=== PATIENT | male | born 1960 | race African-American/Black ===

== ENCOUNTER 2017-08-22 14:35 | Inpatient (IN) | payer OTHER ==
[2017-08-22 17:44] VITALS: BMI 28.7
--- NOTE | 2017-08-22 18:33 | HP ---
Admission ROS [facility] - [facility] Chief Complaint: I WANT TO GO TO REHAB Allergies/Adverse Reactions: Allergies Allergy/AdvReac Type Severity Reaction Status Date / Time No Known Allergies Allergy Verified 08/22/17 18:28 History of Present Illness: 57 YEARS OLD MALE WITH LONG HISTORY OF ALCOHOL DEPENDENCE HAS HYPERTENSION, DIABETES II, POSITIVE PPD AND DEPRESSION IS ADMITTED TO REHAB Exam Limitations: No Limitations - Ebola screening Have you traveled outside of the country in the last 21 days: No Have you had contact with anyone from an Ebola affected area: No Have you been sick,other than usual withdrawal symptoms: No Do you have a fever: No - Review of Systems Constitutional: Weight Stable EENT: reports: No Symptoms Reported Respiratory: reports: No Symptoms reported Cardiac: reports: No Symptoms Reported GI: reports: No Symptoms Reported : reports: No Symptoms Reported Musculoskeletal: reports: No Symptoms Reported Integumentary: reports: No Symptoms Reported Neuro: reports: No Symptoms reported Endocrine: reports: No Symptoms Reported Hematology: reports: No Symptoms Reported Psychiatric: reports: Judgement Intact, Orientated x3, Depressed Other Systems: Reviewed and Negative Patient History - Patient Medical History Hx Anemia: No Hx Asthma: No Hx Chronic Obstructive Pulmonary Disease (COPD): No Hx Cancer: No Hx Cardiac Disorders: No Hx Congestive Heart Failure: No Hx Hypertension: Yes Hx Hypercholesterolemia: Yes Hx Pacemaker: No HX Cerebrovascular Accident: No Hx Seizures: No Hx Dementia: No Hx Diabetes: Yes Hx Gastrointestinal Disorders: No Hx Liver Disease: No Hx Genitourinary Disorders: No Hx Sexually Transmitted Disorders: No Hx Renal Disease (ESRD): No Hx Thyroid Disease: No Hx Human Immunodeficiency Virus (HIV): No Hx Hepatitis C: No Hx Depression: Yes Hx Suicide Attempt: No Hx Bipolar Disorder: No Hx Schizophrenia: No - Patient Surgical History Past Surgical History: No - PPD History Previous Implant?: Yes Documented Results: Negative w/proof Implanted On Prior [facility] Admission?: No PPD to be Administered?: Yes - Smoking Cessation Smoking history: Never smoked Have you smoked in the past 12 months: No Hx Chewing Tobacco Use: No Initiated information on smoking cessation: No - Substance & Tx. History Hx Alcohol Use: Yes Hx Substance Use: No Substance Use Type: Alcohol Hx Substance Use Treatment: Yes (08/2017 [facility]) - Substances Abused Alcohol Route: Oral Frequency: Daily Amount used: EMILY PARADA Age of first use: 27 Date of Last Use: 08/16/17 Family Disease History - Family Disease History Family Disease History: Other: Father (), Mother () Other Family History: ADOPTED CHILD Admission Physical Exam [facility] - Vital Signs Vital Signs: Vital Signs - 24 hr 08/22/17 17:41 Temperature 97.7 F Pulse Rate 64 Respiratory 18 Rate Blood Pressure 109/73 - Physical General Appearance: Yes: No Apparent Distress, Nourished, Appropriately Dressed HEENTM: Yes: Hearing grossly Normal, Normal ENT Inspection, Normocephalic, Normal Voice Respiratory: Yes: Chest Non-Tender, Lungs Clear, Normal Breath Sounds, No Respiratory Distress, No Accessory Muscle Use Neck: Yes: Supple, Trachea in good position Breast: Yes: Breasts Symetrical Cardiology: Yes: Regular Rhythm, Regular Rate, S1, S2 Abdominal: Yes: Normal Bowel Sounds, Non Tender, Soft Genitourinary: Yes: Within Normal Limits Back: Yes: Normal Inspection Musculoskeletal: Yes: full range of Motion, Gait Steady Extremities: Yes: Normal Inspection, Normal Range of Motion, Non-Tender Neurological: Yes: Fully Oriented, Alert, Motor Strength 5/5, Normal Mood/Affect , Normal Response Integumentary: Yes: Warm Lymphatic: Yes: Within Normal Limits - Diagnostic (1) Alcohol dependence with uncomplicated withdrawal Current Visit: Yes Status: Acute (2) Diabetes mellitus type II, non insulin dependent Current Visit: Yes Status: Chronic (3) Hypertension Current Visit: Yes Status: Chronic Qualifiers: Hypertension type: essential hypertension Qualified Code(s): I10 - Essential (primary) hypertension; I10 - Essential (primary) hypertension; I10 - Essential (primary) hypertension (4) Positive PPD, treated Current Visit: Yes Status: Resolved (5) Hypercholesterolemia Current Visit: Yes Status: Chronic (6) Depression Current Visit: Yes Status: Suspected Qualifiers: Depression Type: dysthymia Qualified Code(s): F34.1 - Dysthymic disorder; F34.1 - Dysthymic disorder; F34.1 - Dysthymic disorder Cleared for Admission [facility] - Detox or Rehab [facility] Level of Care: Observation Bed Detox Regimen/Protocol: Not Applicable Claeared for Rehab Admission: Yes [facility] Breath Alcohol Content Breath Alcohol Content: 0 Urine Pregancy Test - Result Urine Test Results: Negative- NO Line Present Urine Drug Screen - Control Is Test Valid: Yes - Results Drug Screen Negative: No Urine Drug Screen Results: BZO-Benzodiazepines Inpatient Rehab Admission - Initial Determination Are CD services needed?: Yes Free of communicable disease: Yes Not in need of hospitalization: Yes - Rehab Admission Criteria Previous failed treatment: Yes Poor recovery environment: Yes Comorbidities: Yes Lacks judgement: No Patient is meeting Inpatient Rehab admission criteria:: Yes
[2017-08-22] MEDS ORDERED: diphenhydrAMINE HCL 50 MG CAPSULE PO PRN (18:42)
[2017-08-22] MEDS ORDERED: ACETAMINOPHEN 325 MG TABLET (FP) PO PRN (18:42)
[2017-08-22] MEDS ORDERED: MENTHOL/PHENOL 1 EACH UD MM PRN (18:42)
[2017-08-22] MEDS ORDERED: MAGNESIUM CITRATE 300 ML BOTTLE PO PRN (18:42)
[2017-08-22] MEDS ORDERED: IBUPROFEN 400 MG TABLET (FP) PO PRN (18:42)
[2017-08-22] MEDS ORDERED: MAGNESIUM HYDROX 2400MG/30ML ORAL SUSPENSION 30 ML CUP PO PRN (18:42)
[2017-08-22] MEDS ORDERED: LOPERAMIDE HCL 2 MG CAPSULE PO PRN (18:42)
[2017-08-22] MEDS ORDERED: guaiFENesin/D-METHORPHAN HB 10 ML UNIT-DOSE CUPS PO PRN (18:42)
[2017-08-22] MEDS ORDERED: MAG HYDROX/AL HYDROX/SIMETH 30 ML UNIT-DOSE CUP PO PRN (18:42)
[2017-08-22] MEDS ORDERED: P-EPHED 60MG/TRIPROLIDI 2.5MG TABLET PO PRN (18:42)
[2017-08-22] MEDS ORDERED: DOCUSATE SODIUM 100 MG CAPSULE (FP) PO PRN (18:50)
[2017-08-22 23:27] LABS: URINE APPEARANCE CLEAR; URINE BILIRUBIN NEGATIVE (NEGATIVE); URINE BLOOD NEGATIVE (NEGATIVE); URINE COLOR LTYELLOW; URINE GLUCOSE (UA) NEGATIVE (NEGATIVE); URINE KETONE NEGATIVE (NEGATIVE); URINE NITRITE NEGATIVE (NEGATIVE); URINE PROTEIN NEGATIVE (NEGATIVE); URINE UROBILINOGEN NEGATIVE mg/dL (0.2-1.0)
[2017-08-22] MEDS: ATORVASTATIN CA 20 MG TABLET (FP) PO SCH (23:31)
[2017-08-22] MEDS: THIAMINE HCL 100 MG TABLET (FP) PO SCH (23:31)
[2017-08-23 09:49] LABS: MCH 31.2 pg (25.7-33.7); MCHC 33.8 g/dl (32.0-35.9); MEAN CELL VOLUME 92.3 fl (80-96); MEAN PLT VOLUME 6.8 fl (7.5-11.1); PLATELET COUNT 344 K/MM3 (134-434); RDW 13.8 % (11.9-15.9); WHITE BLOOD COUNT 6.9 K/mm3 (4.0-10.0)
[2017-08-23 10:18] LABS: URINE LEUK ESTERASE Negative (NEGATIVE)
[2017-08-23 10:29] LABS: ANION GAP 8 (8-16); CALCIUM 9.1 mg/dL (8.5-10.1); CO2 26 mmol/L (21-32); GLUCOSE,RANDOM 107 mg/dL (74-106)
[2017-08-23 10:34] LABS: ALK PHOS 83 U/L (45-117); BILIRUBIN,TOTAL 0.4 mg/dL (0.2-1.0); CREATININE 1.1 mg/dL (0.7-1.3); SGOT/AST 21 U/L (15-37); SGPT/ALT 37 U/L (12-78); TOT PROT 7.8 g/dl (6.4-8.2)
[2017-08-23] MEDS: ASPIRIN 81 MG CHEWABLE TABLETS PO SCH (10:59)
[2017-08-23] MEDS: LISINOPRIL 5 MG TABLET (FP) PO SCH (10:59)
[2017-08-23] MEDS: amLODIPine BESYLATE 5 MG TABLET (FP) PO SCH (10:59)
[2017-08-23] MEDS: PRENATAL VITAMINS W/ FOLIC ACID TABLET (FP) PO SCH (10:59)
--- NOTE | 2017-08-23 11:22 | HP ---
Psychiatrist Admission - Data Date of interview: 08/23/17 Admission source: [facility] Identifying data: This is the second 5N inpatient rehabiltation admission for this 57 year old single unemployed and domiciled. Medical History: Hypercholesterolemia, HTN, DM. Psychiatric History: Patient reports one psychiatric hospitalization in 80"s, reports carries a diagnosis of depression, schizophrenia. Patient is poor historian, currently on Geodon 40 mg hs and Remeron 15 mg po hs, in the past treated with Seroquel, Risperdal, states he sees the psychiatrist at [facility].Unable to sleep and need medication for insomnia. Physical/Sexual Abuse/Trauma History: Denies history of sexual, physical and verbal abuse. Vital Signs: Vital Signs - 24 hr 08/22/17 08/22/17 08/23/17 17:41 21:24 06:59 Temperature 97.7 F 97.7 F 98.0 F Pulse Rate 64 62 69 Respiratory 18 18 16 Rate Blood Pressure 109/73 112/71 122/71 Allergies/Adverse Reactions: Allergies Allergy/AdvReac Type Severity Reaction Status Date / Time No Known Allergies Allergy Verified 08/22/17 18:28 Date of last physical exam: 08/22/17 Concur with the findings of this exam: Yes - Substance Abuse/Tx History Hx Alcohol Use: Yes (started at age of 27, daily 1 pint of vodka) Hx Substance Use: No Substance Use Type: Alcohol Hx Substance Use Treatment: Yes Mental Status Exam - Mental Status Exam Alert and Oriented to: Time, Place, Person Cognitive Function: Good Patient Appearance: Well Groomed Mood: Sad Affect: Appropriate, Mood Congruent Patient Behavior: Cooperative Speech Pattern: Clear, Appropriate Voice Loudness: Normal Thought Process: Goal Oriented Thought Disorder: Paranoid Ideation (on and off) Hallucinations: Denies Suicidal Ideation: Denies Homicidal Ideation: Denies Insight/Judgement: Fair Sleep: Poorly, Difficulty falling asleep Appetite: Fair Muscle strength/Tone: Normal Gait/Station: Normal Psychiatric Findings - Problem List ([place] 1, 2,3) (1) Alcohol dependence Current Visit: Yes Status: Acute (2) Schizoaffective disorder Current Visit: Yes Status: Acute - Initial Treatment Plan Initial Treatment Plan: will continue Geodon, Remeron, will add Belsomra 10 mg po hs for insomnia, side-efefcts and benefits discussed, will monitor progress as needed.
[2017-08-23] MEDS: ATORVASTATIN CA 20 MG TABLET (FP) PO SCH (22:04)
[2017-08-23] MEDS: THIAMINE HCL 100 MG TABLET (FP) PO SCH (22:05)
[2017-08-23] MEDS: SUVOREXANT 10 MG TABLET PO SCH (22:05)
[2017-08-23] MEDS: MIRTAZAPINE 15 MG TABLET (FP) PO SCH (22:05)
[2017-08-23] MEDS: ZIPRASIDONE 40 MG CAPSULE (FP) PO SCH (22:06)
[2017-08-24] MEDS: PRENATAL VITAMINS W/ FOLIC ACID TABLET (FP) PO SCH (10:26)
[2017-08-24] MEDS: LISINOPRIL 5 MG TABLET (FP) PO SCH (10:27)
[2017-08-24] MEDS: ASPIRIN 81 MG CHEWABLE TABLETS PO SCH (10:27)
[2017-08-24] MEDS: amLODIPine BESYLATE 5 MG TABLET (FP) PO SCH (10:27)
[2017-08-24] MEDS: ATORVASTATIN CA 20 MG TABLET (FP) PO SCH (21:58)
[2017-08-24] MEDS: THIAMINE HCL 100 MG TABLET (FP) PO SCH (21:58)
[2017-08-24] MEDS: MIRTAZAPINE 15 MG TABLET (FP) PO SCH (21:59)
[2017-08-24] MEDS: SUVOREXANT 10 MG TABLET PO SCH (21:59)
[2017-08-24] MEDS: ZIPRASIDONE 40 MG CAPSULE (FP) PO SCH (22:01)
[2017-08-25] MEDS: ASPIRIN 81 MG CHEWABLE TABLETS PO SCH (10:53)
[2017-08-25] MEDS: amLODIPine BESYLATE 5 MG TABLET (FP) PO SCH (10:53)
[2017-08-25] MEDS: LISINOPRIL 5 MG TABLET (FP) PO SCH (10:53)
[2017-08-25] MEDS: PRENATAL VITAMINS W/ FOLIC ACID TABLET (FP) PO SCH (10:53)
[2017-08-25] MEDS: SUVOREXANT 10 MG TABLET PO SCH (21:53)
[2017-08-25] MEDS: THIAMINE HCL 100 MG TABLET (FP) PO SCH (21:53)
[2017-08-25] MEDS: MIRTAZAPINE 15 MG TABLET (FP) PO SCH (21:55)
[2017-08-25] MEDS: ZIPRASIDONE 40 MG CAPSULE (FP) PO SCH (21:56)
[2017-08-25] MEDS: ATORVASTATIN CA 20 MG TABLET (FP) PO SCH (22:33)
[2017-08-26] MEDS: ASPIRIN 81 MG CHEWABLE TABLETS PO SCH (10:39)
[2017-08-26] MEDS: amLODIPine BESYLATE 5 MG TABLET (FP) PO SCH (10:39)
[2017-08-26] MEDS: LISINOPRIL 5 MG TABLET (FP) PO SCH (10:39)
[2017-08-26] MEDS: PRENATAL VITAMINS W/ FOLIC ACID TABLET (FP) PO SCH (10:39)
--- NOTE | 2017-08-26 14:27 | EKG ---
Test Reason : Blood Pressure : / mmHG Vent. Rate : 064 BPM Atrial Rate : 064 BPM P-R Int : 172 ms QRS Dur : 098 ms QT Int : 432 ms P-R-T Axes : 072 045 057 degrees QTc Int : 445 ms NORMAL SINUS RHYTHM POSSIBLE LEFT ATRIAL ENLARGEMENT INCOMPLETE RBBB NO PREVIOUS ECGS AVAILABLE Confirmed by FLIP FIGUEROA MD ([id number]) on 08/23/2017 9:57:13 AM Also confirmed by FLIP FIGUEROA MD ([id number]), science editor KIKI WRIGHT ([id number]) on 08/26/2017 2:27:04 PM Referred By: Elida SCHNEIDER Confirmed By:FLIP FIGUEROA MD
[2017-08-26] MEDS: ZIPRASIDONE 40 MG CAPSULE (FP) PO SCH (21:39)
[2017-08-26] MEDS: MIRTAZAPINE 15 MG TABLET (FP) PO SCH (21:39)
[2017-08-26] MEDS: THIAMINE HCL 100 MG TABLET (FP) PO SCH (21:39)
[2017-08-26] MEDS: ATORVASTATIN CA 20 MG TABLET (FP) PO SCH (21:39)
[2017-08-26] MEDS: SUVOREXANT 10 MG TABLET PO SCH (21:40)
[2017-08-27] MEDS: amLODIPine BESYLATE 5 MG TABLET (FP) PO SCH (10:44)
[2017-08-27] MEDS: ASPIRIN 81 MG CHEWABLE TABLETS PO SCH (10:44)
[2017-08-27] MEDS: LISINOPRIL 5 MG TABLET (FP) PO SCH (10:44)
[2017-08-27] MEDS: PRENATAL VITAMINS W/ FOLIC ACID TABLET (FP) PO SCH (10:44)
[2017-08-27] MEDS: SUVOREXANT 10 MG TABLET PO SCH (21:49)
[2017-08-27] MEDS: ATORVASTATIN CA 20 MG TABLET (FP) PO SCH (21:49)
[2017-08-27] MEDS: THIAMINE HCL 100 MG TABLET (FP) PO SCH (21:49)
[2017-08-27] MEDS: ZIPRASIDONE 40 MG CAPSULE (FP) PO SCH (21:49)
[2017-08-27] MEDS: MIRTAZAPINE 15 MG TABLET (FP) PO SCH (21:49)
[2017-08-28] MEDS: LISINOPRIL 5 MG TABLET (FP) PO SCH (10:37)
[2017-08-28] MEDS: ASPIRIN 81 MG CHEWABLE TABLETS PO SCH (10:37)
[2017-08-28] MEDS: PRENATAL VITAMINS W/ FOLIC ACID TABLET (FP) PO SCH (10:37)
[2017-08-28] MEDS: amLODIPine BESYLATE 5 MG TABLET (FP) PO SCH (10:37)
[2017-08-28] MEDS: ATORVASTATIN CA 20 MG TABLET (FP) PO SCH (21:49)
[2017-08-28] MEDS: ZIPRASIDONE 40 MG CAPSULE (FP) PO SCH (21:49)
[2017-08-28] MEDS: SUVOREXANT 10 MG TABLET PO SCH (21:50)
[2017-08-28] MEDS: THIAMINE HCL 100 MG TABLET (FP) PO SCH (21:50)
[2017-08-28] MEDS: MIRTAZAPINE 15 MG TABLET (FP) PO SCH (21:50)
[2017-08-29] MEDS: amLODIPine BESYLATE 5 MG TABLET (FP) PO SCH (10:21)
[2017-08-29] MEDS: ASPIRIN 81 MG CHEWABLE TABLETS PO SCH (10:21)
[2017-08-29] MEDS: LISINOPRIL 5 MG TABLET (FP) PO SCH (10:21)
[2017-08-29] MEDS: PRENATAL VITAMINS W/ FOLIC ACID TABLET (FP) PO SCH (10:21)
[2017-08-29] MEDS: SUVOREXANT 10 MG TABLET PO SCH (21:37)
[2017-08-29] MEDS: ATORVASTATIN CA 20 MG TABLET (FP) PO SCH (21:37)
[2017-08-29] MEDS: THIAMINE HCL 100 MG TABLET (FP) PO SCH (21:37)
[2017-08-29] MEDS: ZIPRASIDONE 40 MG CAPSULE (FP) PO SCH (21:37)
[2017-08-29] MEDS: MIRTAZAPINE 15 MG TABLET (FP) PO SCH (21:37)
[2017-08-30] MEDS: amLODIPine BESYLATE 5 MG TABLET (FP) PO SCH (10:14)
[2017-08-30] MEDS: PRENATAL VITAMINS W/ FOLIC ACID TABLET (FP) PO SCH (10:14)
[2017-08-30] MEDS: ASPIRIN 81 MG CHEWABLE TABLETS PO SCH (10:14)
[2017-08-30] MEDS: LISINOPRIL 5 MG TABLET (FP) PO SCH (10:14)
[2017-08-30] MEDS: SUVOREXANT 10 MG TABLET PO SCH (21:43)
[2017-08-30] MEDS: MIRTAZAPINE 15 MG TABLET (FP) PO SCH (21:43)
[2017-08-30] MEDS: ZIPRASIDONE 40 MG CAPSULE (FP) PO SCH (21:43)
[2017-08-30] MEDS: ATORVASTATIN CA 20 MG TABLET (FP) PO SCH (21:43)
[2017-08-30] MEDS: THIAMINE HCL 100 MG TABLET (FP) PO SCH (21:43)
[2017-08-31] MEDS: LISINOPRIL 5 MG TABLET (FP) PO SCH (10:37)
[2017-08-31] MEDS: ASPIRIN 81 MG CHEWABLE TABLETS PO SCH (10:37)
[2017-08-31] MEDS: PRENATAL VITAMINS W/ FOLIC ACID TABLET (FP) PO SCH (10:37)
[2017-08-31] MEDS: amLODIPine BESYLATE 5 MG TABLET (FP) PO SCH (10:37)
[2017-08-31] MEDS: ZIPRASIDONE 40 MG CAPSULE (FP) PO SCH (22:10)
[2017-08-31] MEDS: ATORVASTATIN CA 20 MG TABLET (FP) PO SCH (22:10)
[2017-08-31] MEDS: SUVOREXANT 10 MG TABLET PO SCH (22:10)
[2017-08-31] MEDS: THIAMINE HCL 100 MG TABLET (FP) PO SCH (22:11)
[2017-08-31] MEDS: MIRTAZAPINE 15 MG TABLET (FP) PO SCH (22:11)
[2017-09-01] MEDS: ASPIRIN 81 MG CHEWABLE TABLETS PO SCH (10:24)
[2017-09-01] MEDS: amLODIPine BESYLATE 5 MG TABLET (FP) PO SCH (10:24)
[2017-09-01] MEDS: PRENATAL VITAMINS W/ FOLIC ACID TABLET (FP) PO SCH (10:24)
[2017-09-01] MEDS: LISINOPRIL 5 MG TABLET (FP) PO SCH (10:25)
[2017-09-01] MEDS: ATORVASTATIN CA 20 MG TABLET (FP) PO SCH (21:48)
[2017-09-01] MEDS: THIAMINE HCL 100 MG TABLET (FP) PO SCH (21:48)
[2017-09-01] MEDS: ZIPRASIDONE 40 MG CAPSULE (FP) PO SCH (21:48)
[2017-09-01] MEDS: MIRTAZAPINE 15 MG TABLET (FP) PO SCH (21:48)
[2017-09-01] MEDS: SUVOREXANT 10 MG TABLET PO SCH (21:48)
[2017-09-02] MEDS: ASPIRIN 81 MG CHEWABLE TABLETS PO SCH (10:35)
[2017-09-02] MEDS: PRENATAL VITAMINS W/ FOLIC ACID TABLET (FP) PO SCH (10:35)
[2017-09-02] MEDS: amLODIPine BESYLATE 5 MG TABLET (FP) PO SCH (10:35)
[2017-09-02] MEDS: LISINOPRIL 5 MG TABLET (FP) PO SCH (10:37)
[2017-09-02] MEDS: ATORVASTATIN CA 20 MG TABLET (FP) PO SCH (21:59)
[2017-09-02] MEDS: MIRTAZAPINE 15 MG TABLET (FP) PO SCH (21:59)
[2017-09-02] MEDS: ZIPRASIDONE 40 MG CAPSULE (FP) PO SCH (21:59)
[2017-09-02] MEDS: SUVOREXANT 10 MG TABLET PO SCH (22:00)
[2017-09-02] MEDS: THIAMINE HCL 100 MG TABLET (FP) PO SCH (22:00)
[2017-09-03] MEDS: amLODIPine BESYLATE 5 MG TABLET (FP) PO SCH (10:39)
[2017-09-03] MEDS: ASPIRIN 81 MG CHEWABLE TABLETS PO SCH (10:39)
[2017-09-03] MEDS: LISINOPRIL 5 MG TABLET (FP) PO SCH (10:39)
[2017-09-03] MEDS: PRENATAL VITAMINS W/ FOLIC ACID TABLET (FP) PO SCH (10:39)
[2017-09-03] MEDS: ZIPRASIDONE 40 MG CAPSULE (FP) PO SCH (21:44)
[2017-09-03] MEDS: ATORVASTATIN CA 20 MG TABLET (FP) PO SCH (21:44)
[2017-09-03] MEDS: MIRTAZAPINE 15 MG TABLET (FP) PO SCH (21:44)
[2017-09-03] MEDS: SUVOREXANT 10 MG TABLET PO SCH (21:44)
[2017-09-03] MEDS: THIAMINE HCL 100 MG TABLET (FP) PO SCH (21:45)
[2017-09-04 07:02] VITALS: BP 118/74; PULSE 63; TEMP 97.3
--- NOTE | 2017-09-04 09:01 | PN ---
Psychiatric Progress Note Vital Signs: Vital Signs Period Temp Pulse Resp BP Sys/Crouch Pulse Ox Last 24 Hr 97.3 F 63-71 18-18 102-118/74-79 Date of Session: 09/04/17 Chief Complaint:: Discharge visit HPI: Patient addressed alcohol dependence comorbid with Schizoaffective disorder. ROS: Significant for DM,HTN,Hyperlipidemia. Current Medications: Active Medications Generic Name Dose Route Start Last Admin Trade Name Freq PRN Reason Stop Dose Admin Acetaminophen 650 mg 08/22/17 18:42 Tylenol - PO Q4H PRN PAIN Al Hydroxide/Mg Hydroxide 30 ml 08/22/17 18:42 Mylanta Oral Suspension - PO Q6H PRN DYSPEPSIA Amlodipine Besylate 5 mg 08/23/17 10:00 09/03/17 10:39 Norvasc - PO 5 mg DAILY BREANNE Administration Aspirin 81 mg 08/23/17 10:00 09/03/17 10:39 Asa - PO 81 mg DAILY BREANNE Administration Atorvastatin Calcium 60 mg 08/22/17 22:00 09/03/17 21:44 Lipitor - PO 60 mg HS BREANNE Administration Diphenhydramine HCl 50 mg 08/22/17 18:42 08/22/17 23:31 Benadryl - PO 50 mg HSMR1 PRN Administration INSOMNIA Docusate Sodium 100 mg 08/22/17 18:50 Colace - PO TID PRN CONSTIPATION Eucalyptus/Menthol/Phenol/Sorbitol 1 each 08/22/17 18:42 Cepastat Lozenge - MM Q4H PRN SORE THROAT Guaifenesin 10 ml 08/22/17 18:42 Robitussin Dm - PO Q6H PRN COUGH Lisinopril 2.5 mg 08/23/17 10:00 09/03/17 10:39 Prinivil PO 2.5 mg DAILY BREANNE Administration Loperamide HCl 4 mg 08/22/17 18:42 Imodium - PO Q6H PRN DIARRHEA Magnesium Citrate 300 ml 08/22/17 18:42 Citroma - PO Q48H PRN CONSTIPATION Magnesium Hydroxide 30 ml 08/22/17 18:42 Milk Of Magnesia - PO DAILY PRN CONSTIPATION Metformin HCl 750 mg 08/23/17 07:00 09/04/17 06:32 Glucophage Xr - PO 750 mg DAILY@0700 BREANNE Administration Mirtazapine 15 mg 08/23/17 22:00 09/03/17 21:44 Remeron - PO 15 mg HS BREANNE Administration Multivit/Folic Acid/Iron 1 tab 08/23/17 10:00 09/03/17 10:39 Vitamins ([facility]) - PO Not Given DAILY BREANNE Pseudoephedrine/Triprolidine 1 combo 08/22/17 18:42 Actifed - PO TID PRN NASAL CONGESTION Thiamine HCl 100 mg 08/22/17 22:00 09/03/17 21:45 Vitamin B1 - PO Not Given HS BREANNE Ziprasidone 40 mg 08/23/17 22:00 09/03/17 21:44 Geodon - PO 40 mg HS BREANNE Administration Current Side Effect: No Lab tests ordered: No Lab tests reviewed: Yes Provider note:: Patient completed this program today.He has met his treatment goals and will continue to address her issues on outpatient basis at [facility] Day program in [facility].patient reports finding that current medications including Geodon 40 mg po daily and remeron 15 mg po hs help to cope with mood instability,depression,psychotisis.scripts for 30 days provided. Patient identifies areas of difficulties and ways,behaviors which contribute to relapse.Support ,coping skills utlization has been discussed with the patient. Patient is stable for discharge today. Total face to face time:: 30 Mental Status Exam - Mental Status Exam Cognitive Function: Grossly Intact Patient Appearance: Well Groomed Mood: Euthymic Affect: Mood Congruent Patient Behavior: Cooperative Speech Pattern: Clear Voice Loudness: Normal Thought Process: Goal Oriented Thought Disorder: Being Controlled Hallucinations: Denies Suicidal Ideation: Denies Homicidal Ideation: Denies Insight/Judgement: Fair Sleep: Fair Appetite: Good Muscle strength/Tone: Normal Gait/Station: Normal Psychiatric Treatment Plan - Problem List (1) Alcohol dependence Current Visit: Yes (2) Schizoaffective disorder Current Visit: Yes (3) Diabetes mellitus type II, non insulin dependent Current Visit: Yes (4) Hypercholesterolemia Current Visit: Yes (5) Hypertension Current Visit: Yes Qualifiers: Hypertension type: essential hypertension Qualified Code(s): I10 - Essential (primary) hypertension; I10 - Essential (primary) hypertension; I10 - Essential (primary) hypertension (6) Positive PPD, treated Current Visit: Yes
[2017-09-04] MEDS: amLODIPine BESYLATE 5 MG TABLET (FP) PO SCH (10:16)
[2017-09-04] MEDS: LISINOPRIL 5 MG TABLET (FP) PO SCH (10:16)
[2017-09-04] MEDS: ASPIRIN 81 MG CHEWABLE TABLETS PO SCH (10:16)
[2017-09-04] MEDS: PRENATAL VITAMINS W/ FOLIC ACID TABLET (FP) PO SCH (10:17)
== END 2017-09-04 10:30 | disposition home or self-care (01) | DRG 895 ==
LOC: YASAS 14:35 → Y5N 20:31
PROVIDERS: ADMIT Psychiatry & Neurology Psychiatry; ATTEND Psychiatry & Neurology Psychiatry
PROC: HZ42ZZZ Group Counseling for Substance Abuse Treatment, Cognitive-Behavioral (ICD-10-PCS; principal; 2017-08-22)
DX: F19.20 Other psychoactive substance dependence, uncomplicated (principal); F25.9 Schizoaffective disorder, unspecified; F34.1 Dysthymic disorder; E11.9 Type 2 diabetes mellitus without complications; E78.00 Pure hypercholesterolemia, unspecified; I10 Essential (primary) hypertension; Z79.84 Long term (current) use of oral hypoglycemic drugs
CPT/HCPCS: 36415; 80053; 81003; 85027; 86593; 93005; 93010

== ENCOUNTER 2018-03-01 09:42 | Inpatient (IN) | payer OTHER ==
[2018-03-01 10:12] VITALS: BMI 27.9
--- NOTE | 2018-03-01 10:17 | HP ---
CIWA Score - CIWA Score Nausea/Vomitin-Mild Nausea/No Vomiting Muscle Tremors: 3 Anxiety: 4-Mod. Anxious/Guarded Agitation: 1-Slight > Activity Paroxysmal Sweats: No Perspiration Orientation: 0-Oriented Tacttile Disturbances: 1-Very Mild Itch/Numbness Auditory Disturbances: 1-Very Mild Visual Disturbances: 1-Very Mild Sensitivity Headache: 2-Mild CIWA-Ar Total Score: 14 Admission ROS [facility] - HPI Chief Complaint: I can't stop drinking on my own, it's a habit and I want to stop Allergies/Adverse Reactions: Allergies Allergy/AdvReac Type Severity Reaction Status Date / Time No Known Allergies Allergy Verified 03/01/18 11:21 History of Present Illness: 57 yo gentleman here for detox from alcohol - was previously in rehab here September 2017, in detox years ago but cannot remember when. No seizures but does have black outs. Exam Limitations: Clinical Condition - Ebola screening Have you traveled outside of the country in the last 21 days: No (N) Have you had contact with anyone from an Ebola affected area: No Have you been sick,other than usual withdrawal symptoms: No Do you have a fever: No - Review of Systems Constitutional: Loss of Appetite, Malaise, Weakness EENT: reports: No Symptoms Reported, Blurred Vision Respiratory: reports: SOB with Exertion Cardiac: reports: Chest Tightness GI: reports: Nausea, Poor Appetite, Poor Fluid Intake : reports: Frequency Integumentary: reports: Bruising, Dryness Neuro: reports: Headache, Tremors Endocrine: reports: No Symptoms Reported Hematology: reports: No Symptoms Reported Psychiatric: reports: Judgement Intact, Mood/Affect Appropiate, Orientated x3, Anxious Other Systems: Reviewed and Negative Patient History - Patient Medical History Hx Anemia: No Hx Asthma: No Hx Chronic Obstructive Pulmonary Disease (COPD): No Hx Cancer: No Hx Cardiac Disorders: Yes Hx Congestive Heart Failure: No Hx Hypertension: Yes (on meds) Hx Hypercholesterolemia: Yes (on meds) Hx Pacemaker: No HX Cerebrovascular Accident: No Hx Seizures: No Hx Dementia: No Hx Diabetes: Yes (on meds) Hx Gastrointestinal Disorders: No Hx Liver Disease: No Hx Genitourinary Disorders: No Hx Sexually Transmitted Disorders: No Hx Renal Disease (ESRD): No Hx Thyroid Disease: No Hx Human Immunodeficiency Virus (HIV): No Hx Hepatitis C: No Hx Depression: Yes Hx Suicide Attempt: No Hx Bipolar Disorder: No Hx Schizophrenia: Yes (on meds, hospitalized once) - Patient Surgical History Past Surgical History: No - PPD History Previous Implant?: No (patient does not seem to know) Implanted On Prior [facility] Admission?: No PPD to be Administered?: Yes - Reproductive History Patient is a Female of Child Bearing Age (11 -55 yrs old): No (male) - Smoking Cessation Smoking history: Former smoker Have you smoked in the past 12 months: No Hx Chewing Tobacco Use: No Initiated information on smoking cessation: No - Substance & Tx. History Hx Alcohol Use: Yes Hx Substance Use: No Substance Use Type: Alcohol Hx Substance Use Treatment: Yes (detox) - Substances Abused alcohol Route: Oral Frequency: Daily Amount used: 3 pints Age of first use: 22 Date of Last Use: 02/28/18 Family Disease History - Family Disease History Family History: Unable to Obtain (adopted) Family Disease History: Other: Father (), Mother () Admission Physical Exam [facility] - Vital Signs Vital Signs: Vital Signs - 24 hr 03/01/18 10:10 Temperature 96.5 F L Pulse Rate 79 Respiratory 18 Rate Blood Pressure 122/67 - Physical General Appearance: Yes: Nourished, Appropriately Dressed, Moderate Distress, Obese HEENTM: Yes: Hearing grossly Normal, Normal ENT Inspection, Normocephalic, Normal Voice Respiratory: Yes: Normal Breath Sounds, No Respiratory Distress Neck: Yes: No masses,lesions,Nodules, Supple Breast: Yes: Breast Exam Deferred Cardiology: Yes: Regular Rhythm, Regular Rate Abdominal: Yes: Non Tender, Flat Genitourinary: Yes: Frequency Back: Yes: Normal Inspection Musculoskeletal: Yes: full range of Motion, Gait Steady Extremities: Yes: Normal Inspection, Normal Range of Motion, Non-Tender Neurological: Yes: Fully Oriented, Alert, Normal Mood/Affect, Normal Response Integumentary: Yes: Normal Color, Dry, Warm - Addiitonal Findings: BGM = 114 - Diagnostic (1) Alcohol dependence with uncomplicated withdrawal Current Visit: Yes Status: Chronic (2) Diabetes mellitus type II, non insulin dependent Current Visit: Yes Status: Chronic (3) Hypercholesterolemia Current Visit: Yes Status: Chronic (4) Hypertension Current Visit: Yes Status: Chronic Qualifiers: Hypertension type: essential hypertension Qualified Code(s): I10 - Essential (primary) hypertension (5) Dehydration Current Visit: Yes Status: Chronic Cleared for Admission [facility] - Detox or Rehab [facility] Level of Care: Medically Managed Detox Regimen/Protocol: Librium [facility] Breath Alcohol Content Breath Alcohol Content: 0 Urine Drug Screen - Results Drug Screen Negative: Yes
[2018-03-01] MEDS ORDERED: ACETAMINOPHEN 325 MG TABLET (FP) PO PRN (10:38)
[2018-03-01] MEDS ORDERED: MAGNESIUM HYDROX 2400MG/30ML ORAL SUSPENSION 30 ML CUP PO PRN (10:38)
[2018-03-01] MEDS ORDERED: LOPERAMIDE HCL 2 MG CAPSULE PO PRN (10:38)
[2018-03-01] MEDS ORDERED: chlordiazePOXIDE HCL 25 MG CAPSULE PO PRN (10:38)
[2018-03-01] MEDS ORDERED: guaiFENesin/D-METHORPHAN HB 10 ML UNIT-DOSE CUPS PO PRN (10:38)
[2018-03-01] MEDS ORDERED: hydrOXYzine PAMOATE 25 MG CAPSULE (FP) PO PRN (10:38)
[2018-03-01] MEDS ORDERED: P-EPHED 60MG/TRIPROLIDI 2.5MG TABLET PO PRN (10:38)
[2018-03-01] MEDS ORDERED: MAG HYDROX/AL HYDROX/SIMETH 30 ML UNIT-DOSE CUP PO PRN (10:38)
[2018-03-01] MEDS ORDERED: MENTHOL/PHENOL 1 EACH UD MM PRN (10:38)
[2018-03-01] MEDS ORDERED: MAGNESIUM CITRATE 300 ML BOTTLE PO PRN (10:38)
[2018-03-01] MEDS ORDERED: chlordiazePOXIDE HCL 25 MG CAPSULE PO ONE (12:00)
[2018-03-01 18:16] LABS: URINE APPEARANCE CLEAR; URINE BILIRUBIN NEGATIVE (<2.0 mg/dL); URINE COLOR LTYELLOW; URINE GLUCOSE (UA) NEGATIVE (NEGATIVE); URINE KETONE NEGATIVE (NEGATIVE); URINE LEUK ESTERASE NEGATIVE (NEGATIVE); URINE NITRITE NEGATIVE (NEGATIVE); URINE PROTEIN NEGATIVE (NEGATIVE); URINE UROBILINOGEN NEGATIVE mg/dL (0.2-1.0)
[2018-03-01] MEDS: chlordiazePOXIDE HCL 25 MG CAPSULE PO SCH ×2 (18:56→22:39)
[2018-03-01] MEDS ORDERED: ZIPRASIDONE 40 MG CAPSULE (FP) PO SCH (22:00)
[2018-03-01] MEDS ORDERED: THIAMINE HCL 100 MG TABLET (FP) PO SCH (22:00)
[2018-03-01] MEDS ORDERED: MIRTAZAPINE 15 MG TABLET (FP) PO SCH (22:00)
[2018-03-01] MEDS ORDERED: QUEtiapine FUMARATE 200 MG TABLET PO SCH (22:00)
[2018-03-01] MEDS ORDERED: ATORVASTATIN CA 20 MG TABLET (FP) PO SCH (22:00)
[2018-03-02] MEDS: chlordiazePOXIDE HCL 25 MG CAPSULE PO SCH ×2 (05:59→10:42)
--- NOTE | 2018-03-02 07:45 | CONSULT ---
[facility] Psychiatric Consult - Data Date of interview: 03/02/18 Admission source: Aleksandra-referred Identifying data: Mr Lorenzo is a 57 years old single male, unemployed on SSI, domiciled seeking detox treatment for alcohol Substance Abuse History: Reports history of alcohol use. He started drinking alcohol at age 22, consumes 3 pints of loquor daily. Last drank on 02/28/18 Medical History: Significant for rapid heart beat, hypercholesterolemia, hypertension and diabetes mellitus Psychiatric History: Patient is invested in concealing his psychiatric diagnosis. He claims at first that he was diagnosed with depression, however upon confrontation, he admits that he was diagnosed with Schizophrenia. Patient was seen by Dr Tanner on 02/18/17 and he reported that patient was diagnosed with Schizophrenia back in the 's and has had one psychiatric admission. Patient acknowledges having that admission but has no recollection of the facility where he was. Reports that he currently receives psychiatric outpatient services at [facility] and he is prescribed Geodon 40 mg po HS, Seroquel 200 mg po HS and Remeron 15 mg po HS. Pharmacy claims show script for Seroquel 20 mg & Remeron 15 mg filled on 02/25/18 but script for Geodon was filled on 09/27/17. He claims that he is still on Geodon and has in his belonging a new script for it. When told by communications writer that he will be sent to security to get his medications so they can be verified, he told communications writer to forget about it. Denies previous suicidal attempt. At present, reports feeling depressed and sleeping poorly Physical/Sexual Abuse/Trauma History: Denies history of sexual, physical and verbal abuse. Denies Dv relationship Additional Comment: Denies criminal history Mental Status Exam - Mental Status Exam Alert and Oriented to: Time, Place, Person Cognitive Function: Fair Patient Appearance: Well Groomed Mood: Depressed Affect: Appropriate Patient Behavior: Cooperative Speech Pattern: Clear Voice Loudness: Normal Thought Process: Intact, Goal Oriented Hallucinations: Denies Suicidal Ideation: Denies Homicidal Ideation: Denies Insight/Judgement: Poor Sleep: Poorly Appetite: Good Muscle strength/Tone: Normal Gait/Station: Normal Psychiatric Findings - Problem List ([place] 1, 2,3) (1) Schizoaffective disorder Current Visit: No Status: Chronic (2) Substance induced mood disorder Current Visit: Yes Status: Acute (3) Substance-induced sleep disorder Current Visit: Yes Status: Acute (4) Alcohol dependence with uncomplicated withdrawal Current Visit: Yes Status: Acute (5) Diabetes mellitus type II, non insulin dependent Current Visit: Yes Status: Chronic (6) Hypercholesterolemia Current Visit: Yes Status: Chronic (7) Hypertension Current Visit: Yes Status: Chronic Qualifiers: Hypertension type: essential hypertension Qualified Code(s): I10 - Essential (primary) hypertension - Initial Treatment Plan Initial Treatment Plan: 1) Continue Seroquel 200 mg po HS and Remeron 15 mg po HS. 2) Continue inpatient detoxification
[2018-03-02 09:54] VITALS: BP 101/67; PULSE 79; TEMP 98.5
[2018-03-02] MEDS ORDERED: ASPIRIN 81 MG CHEWABLE TABLETS PO SCH (10:00)
[2018-03-02] MEDS ORDERED: PRENATAL VITAMINS W/ FOLIC ACID TABLET (FP) PO SCH (10:00)
[2018-03-02] MEDS ORDERED: LISINOPRIL 5 MG TABLET (FP) PO SCH (10:00)
[2018-03-02] MEDS ORDERED: amLODIPine BESYLATE 5 MG TABLET (FP) PO SCH (10:00)
--- NOTE | 2018-03-02 10:47 | EKG ---
Test Reason : Blood Pressure : / mmHG Vent. Rate : 066 BPM Atrial Rate : 066 BPM P-R Int : 158 ms QRS Dur : 090 ms QT Int : 412 ms P-R-T Axes : 059 045 028 degrees QTc Int : 431 ms NORMAL SINUS RHYTHM NORMAL ECG WHEN COMPARED WITH ECG OF 22-AUG-2017 21:42, NO SIGNIFICANT CHANGE WAS FOUND Confirmed by JAMEY FIORE MD ([id number]) on 03/02/2018 10:47:38 AM Referred By: Confirmed By:JAMEY FIORE MD
[2018-03-02] MEDS ORDERED: amLODIPine BESYLATE 2.5 MG TABLET (FP) PO SCH (11:13)
[2018-03-02 11:21] LABS: HEMATOCRIT 37.8 % (35.4-49); HEMOGLOBIN 13.3 GM/dL (11.7-16.9); MCH 32.2 pg (25.7-33.7); MCHC 35.2 g/dl (32.0-35.9); MEAN CELL VOLUME 91.5 fl (80-96); MEAN PLT VOLUME 6.6 fl (7.5-11.1); PLATELET COUNT 310 K/MM3 (134-434); RBC 4.13 M/mm3 (4.00-5.60); RDW 13.3 % (11.9-15.9); WHITE BLOOD COUNT 5.3 K/mm3 (4.0-10.0)
[2018-03-02 11:28] LABS: ALBUMIN 3.7 g/dl (3.4-5.0); ALK PHOS 76 U/L (45-117); ANION GAP 6 (8-16); BILIRUBIN,TOTAL 0.4 mg/dL (0.2-1.0); BLOOD UREA NITROGEN 10 mg/dL (7-18); CALCIUM 9.1 mg/dL (8.5-10.1); CHLORIDE 105 mmol/L (98-107); CO2 27 mmol/L (21-32); GLUCOSE,RANDOM 128 mg/dL (74-106); POTASSIUM 4.3 mmol/L (3.5-5.1); SGOT/AST 16 U/L (15-37); SGPT/ALT 20 U/L (12-78); SODIUM 138 mmol/L (136-145); TOT PROT 7.1 g/dl (6.4-8.2)
--- NOTE | 2018-03-02 13:46 | PN ---
S CIWA - CIWA Score Nausea/Vomitin Muscle Tremors: None Anxiety: 5 Agitation: 4-Moderately Restless Paroxysmal Sweats: 3 Orientation: 0-Oriented Tacttile Disturbances: 3-Moderate Itch/Numb/Burn Auditory Disturbances: 0-None Visual Disturbances: 0-None Headache: 0-None Present CIWA-Ar Total Score: 18 [facility] Progress Note (SOAP) Subjective: Sweating, Nausea, Anxious. Objective: PATIENT A & O X 3, OBSERVED AMBULATING ON UNIT. NO ACUTE DISTRESS. 03/02/18 13:43 Vital Signs Temperature 98.5 F 03/02/18 09:50 Pulse Rate 79 03/02/18 09:50 Respiratory Rate 18 03/02/18 09:50 Blood Pressure 101/67 03/02/18 09:50 O2 Sat by Pulse Oximetry (%) Laboratory Tests 03/01/18 03/01/18 03/02/18 11:46 16:00 06:01 WBC RBC Hgb Hct MCV MCH MCHC RDW Plt Count MPV Sodium Potassium Chloride Carbon Dioxide Anion Gap BUN Creatinine Creat Clearance w eGFR POC Glucometer 114 111 Random Glucose Calcium Total Bilirubin AST ALT Alkaline Phosphatase Total Protein Albumin Urine Color Ltyellow Urine Appearance Clear Urine pH 5.0 D Ur Specific [place] 1.011 Urine Protein Negative Urine Glucose (UA) Negative Urine Ketones Negative Urine Blood Negative Urine Nitrite Negative Urine Bilirubin Negative Urine Urobilinogen Negative Ur Leukocyte Esterase Negative RPR Titer 03/02/18 03/02/18 03/02/18 08:00 08:00 08:00 WBC 5.3 RBC 4.13 Hgb 13.3 Hct 37.8 MCV 91.5 MCH 32.2 MCHC 35.2 RDW 13.3 Plt Count 310 MPV 6.6 L Sodium 138 Potassium 4.3 Chloride 105 Carbon Dioxide 27 Anion Gap 6 L BUN 10 Creatinine 1.0 Creat Clearance w eGFR > 60 POC Glucometer Random Glucose 128 H Calcium 9.1 Total Bilirubin 0.4 AST 16 D ALT 20 D Alkaline Phosphatase 76 Total Protein 7.1 Albumin 3.7 Urine Color Urine Appearance Urine pH Ur Specific [place] Urine Protein Urine Glucose (UA) Urine Ketones Urine Blood Urine Nitrite Urine Bilirubin Urine Urobilinogen Ur Leukocyte Esterase RPR Titer Nonreactive LABS NOTED. Assessment: 03/02/18 13:44 WITHDRAWAL SYMPTOMS. Plan: CONTINUE DETOX.
--- NOTE | 2018-03-02 13:49 | DS ---
[facility] Detox Discharge Summary Admission Date: 03/01/18 Discharge Date: 03/02/18 - History Present History: Alcohol Dependence Additional Comments: PATIENT DOES NOT WISH TO STAY TO COMPLETE DETOX REGIMEN. RISKS OF LEAVING DETOX UNIT AGAINST MEDICAL ADVICE AND PRIOR TO COMPLETION OF DETOX REGIMEN EXPLAINED TO PATIENT. PATIENT ADVISED TO GO IMMEDIATELY TO NEAREST ER SHOULD ANY INTOLERABLE DETOX SYMPTOMS DEVELOP AT ANY TIME. PATIENT LEFT DETOX UNIT IN STABLE MEDICAL CONDITION. Pertinent Past History: HTN, Hypercholesterolemia, Type II DM, Schizoaffective Disorder, Dehydration. - Physical Exam Results Vital Signs: Vital Signs Temperature 98.5 F 03/02/18 09:50 Pulse Rate 79 03/02/18 09:50 Respiratory Rate 18 03/02/18 09:50 Blood Pressure 101/67 03/02/18 09:50 O2 Sat by Pulse Oximetry (%) Pertinent Admission Physical Exam Findings: WITHDRAWAL SYMPTOMS. Laboratory Tests 03/01/18 03/01/18 03/02/18 11:46 16:00 06:01 WBC RBC Hgb Hct MCV MCH MCHC RDW Plt Count MPV Sodium Potassium Chloride Carbon Dioxide Anion Gap BUN Creatinine Creat Clearance w eGFR POC Glucometer 114 111 Random Glucose Calcium Total Bilirubin AST ALT Alkaline Phosphatase Total Protein Albumin Urine Color Ltyellow Urine Appearance Clear Urine pH 5.0 D Ur Specific [place] 1.011 Urine Protein Negative Urine Glucose (UA) Negative Urine Ketones Negative Urine Blood Negative Urine Nitrite Negative Urine Bilirubin Negative Urine Urobilinogen Negative Ur Leukocyte Esterase Negative RPR Titer 03/02/18 03/02/18 03/02/18 08:00 08:00 08:00 WBC 5.3 RBC 4.13 Hgb 13.3 Hct 37.8 MCV 91.5 MCH 32.2 MCHC 35.2 RDW 13.3 Plt Count 310 MPV 6.6 L Sodium 138 Potassium 4.3 Chloride 105 Carbon Dioxide 27 Anion Gap 6 L BUN 10 Creatinine 1.0 Creat Clearance w eGFR > 60 POC Glucometer Random Glucose 128 H Calcium 9.1 Total Bilirubin 0.4 AST 16 D ALT 20 D Alkaline Phosphatase 76 Total Protein 7.1 Albumin 3.7 Urine Color Urine Appearance Urine pH Ur Specific [place] Urine Protein Urine Glucose (UA) Urine Ketones Urine Blood Urine Nitrite Urine Bilirubin Urine Urobilinogen Ur Leukocyte Esterase RPR Titer Nonreactive LABS NOTED. - Treatment Hospital Course: Detoxed Safely - Medication Discharge Medications: Ambulatory Orders Aspirin [ASA -] 81 mg PO DAILY #30 tab.chew 09/03/17 Docusate Sodium [Colace -] 100 mg PO BID #60 cap 09/03/17 Lisinopril [Zestril] 2.5 mg PO DAILY #30 tab 09/03/17 Ziprasidone [Geodon -] 40 mg PO HS #30 cap 09/04/17 Amlodipine Besylate [Norvasc -] 2.5 mg PO DAILY 03/01/18 Atorvastatin Ca [Lipitor] 60 mg PO HS 03/01/18 Mirtazapine [Remeron -] 15 mg PO HS 03/01/18 Quetiapine Fumarate [Seroquel -] 200 mg PO HS 03/01/18 metFORMIN XR [Glucophage Xr -] 1,500 mg PO DAILY 03/01/18 - Diagnosis (1) Alcohol dependence with uncomplicated withdrawal Status: Acute (2) Substance induced mood disorder Status: Acute (3) Substance-induced sleep disorder Status: Acute (4) Dehydration Status: Chronic (5) Diabetes mellitus type II, non insulin dependent Status: Chronic (6) Hypercholesterolemia Status: Chronic (7) Hypertension Status: Chronic Qualifiers: Hypertension type: essential hypertension Qualified Code(s): I10 - Essential (primary) hypertension (8) Schizoaffective disorder Status: Chronic Qualifiers: Schizoaffective disorder type: unspecified Qualified Code(s): F25.9 - Schizoaffective disorder, unspecified - AMA Did Patient Leave Against Medical Advice: Yes (PATIENT DID NOT WISH TO STAY TO COMPLETE DETOX REGIMEN.)
[2018-03-02] MEDS ORDERED: chlordiazePOXIDE HCL 25 MG CAPSULE PO SCH (17:00)
[2018-03-03] MEDS ORDERED: chlordiazePOXIDE 5 MG CAPSULE PO SCH (17:00)
[2018-03-04] MEDS ORDERED: chlordiazePOXIDE HCL 10 MG CAPSULE PO SCH (17:00)
== END 2018-03-02 13:07 | disposition left against medical advice (07) | DRG 894 ==
LOC: YASAS 09:42 → Y3N 11:54
PROVIDERS: ADMIT Internal Medicine; ATTEND Internal Medicine
PROC: HZ2ZZZZ Detoxification Services for Substance Abuse Treatment (ICD-10-PCS; principal; 2018-03-01)
DX: F19.230 Other psychoactive substance dependence with withdrawal, uncomplicated (principal); F19.282 Other psychoactive substance dependence with psychoactive substance-induced sleep disorder; F10.230 Alcohol dependence with withdrawal, uncomplicated; F19.24 Other psychoactive substance dependence with psychoactive substance-induced mood disorder; F25.9 Schizoaffective disorder, unspecified; E86.0 Dehydration; E11.9 Type 2 diabetes mellitus without complications; E78.00 Pure hypercholesterolemia, unspecified; I10 Essential (primary) hypertension; Z87.891 Personal history of nicotine dependence
CPT/HCPCS: 36415; 80053; 81003; 82962; 85027; 86593; 93005; 93010

== ENCOUNTER 2018-04-26 11:00 | Inpatient (IN) | payer OTHER ==
[2018-04-26 11:23] VITALS: BMI 35.6
--- NOTE | 2018-04-26 12:32 | HP ---
CIWA Score - CIWA Score Nausea/Vomitin Muscle Tremors: 4-Moderate,w/Arms Extend Anxiety: 4-Mod. Anxious/Guarded Agitation: 1-Slight > Activity Paroxysmal Sweats: 1-Minimal Palms Moist Orientation: 0-Oriented Tacttile Disturbances: 1-Very Mild Itch/Numbness Auditory Disturbances: 1-Very Mild Visual Disturbances: 1-Very Mild Sensitivity Headache: 1-Very Mild CIWA-Ar Total Score: 16 Admission ROS BHS - HPI Chief Complaint: I want to stop drinking, I get shaky on my own, I need help Allergies/Adverse Reactions: Allergies Allergy/AdvReac Type Severity Reaction Status Date / Time No Known Allergies Allergy Verified 04/26/18 12:02 History of Present Illness: 57 yo gentleman here for detox from alcohol - denies seizures but does have black outs. Although urine tox + benzo denies any benzo use or recent ED visit. Exam Limitations: Clinical Condition - Ebola screening Have you been sick,other than usual withdrawal symptoms: No - Review of Systems Constitutional: Loss of Appetite, Malaise, Changes in sleep EENT: reports: No Symptoms Reported Respiratory: reports: No Symptoms reported Cardiac: reports: No Symptoms Reported GI: reports: Nausea, Poor Fluid Intake, Indigestion : reports: Frequency Musculoskeletal: reports: No Symptoms Reported Integumentary: reports: Dryness Neuro: reports: Headache Endocrine: reports: No Symptoms Reported Hematology: reports: No Symptoms Reported Psychiatric: reports: Orientated x3, Anxious, other (poor eye contact) Other Systems: Reviewed and Negative Patient History - Patient Medical History Hx Anemia: No Hx Asthma: No Hx Chronic Obstructive Pulmonary Disease (COPD): No Hx Cancer: No Hx Cardiac Disorders: Yes Hx Congestive Heart Failure: No Hx Hypertension: Yes (on meds) Hx Hypercholesterolemia: Yes (on meds) Hx Pacemaker: No HX Cerebrovascular Accident: No Hx Seizures: No Hx Dementia: No Hx Diabetes: Yes (on meds, well controlled) Hx Gastrointestinal Disorders: No Hx Liver Disease: No Hx Genitourinary Disorders: No Hx Sexually Transmitted Disorders: No Hx Renal Disease (ESRD): No Hx Thyroid Disease: No Hx Human Immunodeficiency Virus (HIV): No Hx Hepatitis C: No Hx Depression: Yes Hx Suicide Attempt: No Hx Bipolar Disorder: No Hx Schizophrenia: Yes (on meds, hospitalized once) - Patient Surgical History Past Surgical History: No Hx Neurologic Surgery: No Hx Cataract Extraction: No Hx Cardiac Surgery: No Hx Lung Surgery: No Hx Breast Surgery: No Hx Breast Biopsy: No Hx Abdominal Surgery: No Hx Appendectomy: No Hx Cholecystectomy: No Hx Genitourinary Surgery: No Hx Section: No Hx Orthopedic Surgery: No Anesthesia Reaction: No - PPD History Previous Implant?: Yes Documented Results: Negative w/o proof Implanted On Prior R Admission?: Yes Date: 03/03/18 (left prior to reading) PPD to be Administered?: Yes - Reproductive History Patient is a Female of Child Bearing Age (11 -55 yrs old): No (male) - Smoking Cessation Smoking history: Former smoker Have you smoked in the past 12 months: No Hx Chewing Tobacco Use: No Initiated information on smoking cessation: No - Substance & Tx. History Hx Alcohol Use: Yes Hx Substance Use: No Substance Use Type: Alcohol Hx Substance Use Treatment: Yes (detox, rehb) - Substances Abused Alcohol Route: Oral Frequency: Daily Amount used: 1 PINT OF VODKA Age of first use: 27 Date of Last Use: 04/25/18 Family Disease History - Family Disease History Family History: Unable to Obtain (adopted) Family Disease History: Other: Father (), Mother () Admission Physical Exam BHS - Vital Signs Vital Signs: Vital Signs - 24 hr 04/26/18 11:21 Temperature 96.9 F L Pulse Rate 74 Respiratory 17 Rate Blood Pressure 106/70 - Physical General Appearance: Yes: Nourished, Appropriately Dressed, Moderate Distress, Tremorous, Anxious HEENTM: Yes: Hearing grossly Normal, Normal ENT Inspection, Normocephalic, Normal Voice, Pharynx Normal Respiratory: Yes: Normal Breath Sounds, No Respiratory Distress Neck: Yes: No masses,lesions,Nodules, Supple Breast: Yes: Breast Exam Deferred Cardiology: Yes: Regular Rhythm, Regular Rate Abdominal: Yes: Flat, Soft Genitourinary: Yes: Frequency Back: Yes: Normal Inspection Musculoskeletal: Yes: full range of Motion, Gait Steady Extremities: Yes: Within Normal Limits Neurological: Yes: Fully Oriented, Alert, Normal Mood/Affect, Normal Response Integumentary: Yes: Normal Color, Warm Lymphatic: Yes: Within Normal Limits - Addiitonal Findings: BGM = 112 - Diagnostic (1) Alcohol dependence with uncomplicated withdrawal Current Visit: Yes Status: Chronic (2) Diabetes mellitus type II, non insulin dependent Current Visit: Yes Status: Chronic Comment: states well controlled -HgbA1c = 5.4 (3) Hypercholesterolemia Current Visit: Yes Status: Chronic (4) Hypertension Current Visit: Yes Status: Chronic Qualifiers: Hypertension type: essential hypertension Qualified Code(s): I10 - Essential (primary) hypertension Cleared for Admission S - Detox or Rehab [facility] Level of Care: Medically Managed Detox Regimen/Protocol: Librium S Breath Alcohol Content Breath Alcohol Content: 0 Urine Drug Screen - Results Drug Screen Negative: No Urine Drug Screen Results: BZO-Benzodiazepines
[2018-04-26] MEDS ORDERED: LOPERAMIDE HCL 2 MG CAPSULE PO PRN (12:41)
[2018-04-26] MEDS ORDERED: MAG HYDROX/AL HYDROX/SIMETH 30 ML UNIT-DOSE CUP PO PRN (12:41)
[2018-04-26] MEDS ORDERED: MAGNESIUM HYDROX 2400MG/30ML ORAL SUSPENSION 30 ML CUP PO PRN (12:41)
[2018-04-26] MEDS ORDERED: ACETAMINOPHEN 325 MG TABLET (FP) PO PRN (12:41)
[2018-04-26] MEDS ORDERED: guaiFENesin/D-METHORPHAN HB 10 ML UNIT-DOSE CUPS PO PRN (12:41)
[2018-04-26] MEDS ORDERED: MENTHOL/PHENOL 1 EACH UD MM PRN (12:41)
[2018-04-26] MEDS ORDERED: P-EPHED 60MG/TRIPROLIDI 2.5MG TABLET PO PRN (12:41)
[2018-04-26] MEDS ORDERED: hydrOXYzine PAMOATE 25 MG CAPSULE (FP) PO PRN (12:41)
[2018-04-26] MEDS ORDERED: chlordiazePOXIDE HCL 25 MG CAPSULE PO PRN (12:41)
[2018-04-26] MEDS ORDERED: MAGNESIUM CITRATE 300 ML BOTTLE PO PRN (12:41)
[2018-04-26] MEDS ORDERED: LISINOPRIL 5 MG TABLET (FP) PO ONE (12:44)
[2018-04-26] MEDS ORDERED: chlordiazePOXIDE HCL 25 MG CAPSULE PO ONE (14:00)
[2018-04-26 17:59] LABS: URINE APPEARANCE SLCLOUDY; URINE BILIRUBIN NEGATIVE (<2.0 mg/dL); URINE COLOR YELLOW; URINE GLUCOSE (UA) NEGATIVE (NEGATIVE); URINE KETONE NEGATIVE (NEGATIVE); URINE LEUK ESTERASE NEGATIVE (NEGATIVE); URINE NITRITE NEGATIVE (NEGATIVE); URINE PROTEIN NEGATIVE (NEGATIVE)
[2018-04-26] MEDS: chlordiazePOXIDE HCL 25 MG CAPSULE PO SCH ×2 (19:10→22:13)
[2018-04-26] MEDS ORDERED: MELATONIN 5 MG TABLETS PO PRN (22:00)
[2018-04-26] MEDS ORDERED: THIAMINE HCL 100 MG TABLET (FP) PO SCH (22:00)
[2018-04-26] MEDS ORDERED: ATORVASTATIN CA 20 MG TABLET (FP) PO SCH (22:00)
[2018-04-27] MEDS: chlordiazePOXIDE HCL 25 MG CAPSULE PO SCH ×2 (05:54→10:34)
--- NOTE | 2018-04-27 07:16 | CONSULT ---
[facility] Psychiatric Consult - Data Date of interview: 04/27/18 Admission source: Self-referred Identifying data: Mr Lorenzo is a 57 years old single Black male, unemployed on SSI, domiciled seeking detox treatment for alcohol Substance Abuse History: Reports history of alcohol use, Refer to addiction counselor's summary for further information Medical History: Significant for hypertension, dyslipidemia and diabetes mellitus Psychiatric History: Patient is known to administrative underwriter from a previous admission in this facility and interaction is similar in this admission is similar with previous one. Patient is invested in concealing his psychiatric diagnosis. He claims at first that he was diagnosed with depression, however upon confronted with data from prior admission to this facility, he admits that he was diagnosed with Schizophrenia. This data revealed that he was diagnosed with Schizophrenia back in the 80's and has had one psychiatric admission. Patient acknowledges the possibility of having had that admission but has no recollection of it. Reports that he currently receives psychiatric outpatient services at [facility] and he is prescribed Seroquel 200 mg po HS and Remeron 15 mg po HS. Last took medications 2 days ago. Pharmacy claims show script for Seroquel 200 mg & Remeron 15 mg filled on 03/28/18 at [facility]. Denies previous suicidal attempt. At present, reports feeling anxious and sleeping poorly Physical/Sexual Abuse/Trauma History: Denies history of sexual, physical and verbal abuse. Denies DV relationship Additional Comment: Denies criminal history Mental Status Exam - Mental Status Exam Alert and Oriented to: Time, Place, Person Cognitive Function: Fair Patient Appearance: Well Groomed Mood: Anxious Affect: Blunted Patient Behavior: Cooperative Speech Pattern: Clear Voice Loudness: Normal Thought Process: Intact Thought Disorder: Not Present, Paranoid Ideation Hallucinations: Denies Suicidal Ideation: Denies Homicidal Ideation: Denies Insight/Judgement: Poor Sleep: Poorly Appetite: Fair Muscle strength/Tone: Normal Gait/Station: Normal Psychiatric Findings - Problem List ([employer] 1, 2,3) (1) Schizoaffective disorder Status: Chronic Qualifiers: Schizoaffective disorder type: unspecified Qualified Code(s): F25.9 - Schizoaffective disorder, unspecified (2) Substance induced mood disorder Status: Acute (3) Substance-induced sleep disorder Status: Acute (4) Alcohol dependence with uncomplicated withdrawal Status: Acute (5) Diabetes mellitus type II, non insulin dependent Status: Chronic Comment: states well controlled -HgbA1c = 5.4 (6) Hypercholesterolemia Status: Chronic (7) Hypertension Status: Chronic Qualifiers: Hypertension type: essential hypertension Qualified Code(s): I10 - Essential (primary) hypertension - Initial Treatment Plan Initial Treatment Plan: 1) Continue Seroquel 200 mg po HS ans Remeron 15 mg po HS. 2) Continue inpatient detoxification
[2018-04-27] MEDS ORDERED: amLODIPine BESYLATE 5 MG TABLET (FP) PO SCH (10:00)
[2018-04-27] MEDS ORDERED: PRENATAL VITAMINS W/ FOLIC ACID TABLET (FP) PO SCH (10:00)
[2018-04-27] MEDS ORDERED: LISINOPRIL 5 MG TABLET (FP) PO SCH (10:00)
[2018-04-27] MEDS ORDERED: ASPIRIN 81 MG CHEWABLE TABLETS PO SCH (10:00)
[2018-04-27 11:11] LABS: HEMATOCRIT 40.7 % (35.4-49); HEMOGLOBIN 13.8 GM/dL (11.7-16.9); MCH 31.3 pg (25.7-33.7); MCHC 33.8 g/dl (32.0-35.9); MEAN CELL VOLUME 92.5 fl (80-96); MEAN PLT VOLUME 6.8 fl (7.5-11.1); PLATELET COUNT 317 K/MM3 (134-434); RDW 13.5 % (11.9-15.9)
[2018-04-27 11:22] LABS: CHLORIDE 104 mmol/L (98-107); POTASSIUM 4.6 mmol/L (3.5-5.1); SODIUM 137 mmol/L (136-145)
--- NOTE | 2018-04-27 12:10 | PN ---
[facility] CIWA - CIWA Score Nausea/Vomitin-No Nausea/No Vomiting Muscle Tremors: 4-Moderate,w/Arms Extend Anxiety: 4-Mod. Anxious/Guarded Agitation: 4-Moderately Restless Paroxysmal Sweats: 1-Minimal Palms Moist Orientation: 0-Oriented Tacttile Disturbances: 0-None Auditory Disturbances: 0-None Visual Disturbances: 0-None Headache: 0-None Present CIWA-Ar Total Score: 13 S Progress Note (SOAP) Subjective: ANXIETY,SWEATS. OOB AMBULATING WITH STEADY GAIT. PT STATES HE TAKES HIS METFORMIN AT BEDTIME AT HOME AND WOULD LIKE TO KEEP IT THE SAME SCHEDULE. Objective: 04/27/18 12:11 Vital Signs 04/27/18 04/27/18 06:10 10:32 Temperature 97.1 F L 98.6 F Pulse Rate 63 62 Respiratory 16 20 Rate Blood Pressure 108/67 111/77 Laboratory Tests 04/26/18 04/26/18 04/27/18 12:26 Unknown 05:54 WBC RBC Hgb Hct MCV MCH MCHC RDW Plt Count MPV POC Glucometer 120 112 Urine Color Yellow Urine Appearance Slcloudy Urine pH 5.0 Ur Specific [place] 1.020 Urine Protein Negative Urine Glucose (UA) Negative Urine Ketones Negative Urine Blood Negative Urine Nitrite Negative Urine Bilirubin Negative Urine Urobilinogen 2.0 Ur Leukocyte Esterase Negative 04/27/18 07:30 WBC 5.0 RBC 4.40 Hgb 13.8 Hct 40.7 MCV 92.5 MCH 31.3 MCHC 33.8 RDW 13.5 Plt Count 317 MPV 6.8 L POC Glucometer Urine Color Urine Appearance Urine pH Ur Specific [place] Urine Protein Urine Glucose (UA) Urine Ketones Urine Blood Urine Nitrite Urine Bilirubin Urine Urobilinogen Ur Leukocyte Esterase Assessment: 04/27/18 12:11 WITHDRAWAL SX Plan: CONTINUE DETOX METFORMIN PT REQUEST SCHEDULE.
[2018-04-27 13:10] LABS: ALBUMIN 3.8 g/dl (3.4-5.0); ALK PHOS 82 U/L (45-117); ANION GAP 7 (8-16); BILIRUBIN,TOTAL 0.5 mg/dL (0.2-1.0); BLOOD UREA NITROGEN 9 mg/dL (7-18); CALCIUM 9.3 mg/dL (8.5-10.1); CO2 26 mmol/L (21-32); GLUCOSE,RANDOM 102 mg/dL (74-106); SGOT/AST 24 U/L (15-37); SGPT/ALT 37 U/L (12-78); TOT PROT 7.4 g/dl (6.4-8.2)
[2018-04-27 13:36] LABS: CREATININE 0.9 mg/dL (0.7-1.3)
[2018-04-27 14:30] VITALS: BP 128/77; PULSE 70; TEMP 97.1
[2018-04-27] MEDS ORDERED: chlordiazePOXIDE HCL 25 MG CAPSULE PO SCH (17:00)
[2018-04-27] MEDS ORDERED: metFORMIN HCL 500 MG TABLET (FP) PO SCH (22:00)
[2018-04-28] MEDS ORDERED: chlordiazePOXIDE 5 MG CAPSULE PO SCH (17:00)
--- NOTE | 2018-04-28 22:13 | EKG ---
Test Reason : Blood Pressure : / mmHG Vent. Rate : 064 BPM Atrial Rate : 064 BPM P-R Int : 166 ms QRS Dur : 088 ms QT Int : 418 ms P-R-T Axes : 067 051 060 degrees QTc Int : 431 ms NORMAL SINUS RHYTHM POSSIBLE LEFT ATRIAL ENLARGEMENT BORDERLINE ECG WHEN COMPARED WITH ECG OF 01-MAR-2018 13:02, NO SIGNIFICANT CHANGE WAS FOUND Confirmed by JENNIFER SANTIAGO MD ([id number]) on 04/28/2018 10:13:03 PM Referred By: Chari Tan Confirmed By:JENNIFER SANTIAGO MD
[2018-04-29] MEDS ORDERED: chlordiazePOXIDE HCL 10 MG CAPSULE PO SCH (17:00)
== END 2018-04-27 15:26 | disposition left against medical advice (07) | DRG 894 ==
LOC: YASAS 11:00 → Y3N 12:40
PROVIDERS: ADMIT Family Medicine Addiction Medicine; ATTEND Family Medicine Addiction Medicine
PROC: HZ2ZZZZ Detoxification Services for Substance Abuse Treatment (ICD-10-PCS; principal; 2018-04-26)
DX: F10.230 Alcohol dependence with withdrawal, uncomplicated (principal); F19.282 Other psychoactive substance dependence with psychoactive substance-induced sleep disorder; F25.9 Schizoaffective disorder, unspecified; F19.24 Other psychoactive substance dependence with psychoactive substance-induced mood disorder; I10 Essential (primary) hypertension; E11.9 Type 2 diabetes mellitus without complications; E78.5 Hyperlipidemia, unspecified; Z87.891 Personal history of nicotine dependence
CPT/HCPCS: 36415; 80053; 81003; 82962; 85027; 86593; 93005; 93010

== ENCOUNTER 2019-11-07 11:38 | Inpatient (IN) | payer OTHER ==
[2019-11-07 14:36] VITALS: BMI 24.3
--- NOTE | 2019-11-07 15:29 | HP ---
CIWA Score Nausea/Vomitin Muscle Tremors: 3 Anxiety: 3 Agitation: 3 Paroxysmal Sweats: 1-Minimal Palms Moist Orientation: 0-Oriented Tacttile Disturbances: 1-Very Mild Itch/Numbness Auditory Disturbances: 0-None Visual Disturbances: 0-None Headache: 2-Mild CIWA-Ar Total Score: 15 - Admission Criteria [facility] Guidelines: Admission for Medically Managed Detox: Requires at least one of the followin. CIWA greater than 12 2. Seizures within the past 24 hours 3. Delirium tremens within the past 24 hours 4. Hallucinations within the past 24 hours 5. Acute intervention needed for co occurring medical disorder 6. Acute intervention needed for co occurring psychiatric disorder 7. Severe withdrawal that cannot be handled at a lower level of care (continued vomiting, continued diarrhea, abnormal vital signs) requiring intravenous medication and/or fluids 8. Admitting History and Physical - Admission Chief Complaint: i need help to stop dinking alcohol,cocaine History of Present Illness: this 59 years old male with alcohol and cocaine dependence,seeking detox, denied seizure syncope last yesterday history of hypertension,type 2 dm depression last detox 08/22 aci plan for rehab after detox History Source: Patient Limitations to Obtaining History: No Limitations - Past Medical History Cardiovascular: Yes: HTN Psych: Yes: Depression Endocrine: Yes: Diabetes Mellitus - Smoking History Smoking history: Former smoker Have you smoked in the past 12 months: No - Alcohol/Substance Use Hx Alcohol Use: Yes History of Substance Use: reports: Cocaine - Social History Usual Living Arrangement: Yes: Other (living with room mate) Occupation: unemployed History of Recent Travel: No Admission ROS S - HPI Chief Complaint: i need help to stop drinking alcohol,cocaine Allergies/Adverse Reactions: Allergies Allergy/AdvReac Type Severity Reaction Status Date / Time No Known Allergies Allergy Verified 04/26/18 12:02 History of Present Illness: this 59 years old male with alcohol and cocaine dependence seeking detox, withdrawal symptom, multiple admissions in detox,last aci in 08/22 syncope alcohol related,last 11/05/18 denied seizure history of hypertension ,type 2 dm no significant period of sobriety unemployed has room mate plan for rehab after detox Exam Limitations: No Limitations - Ebola screening Have you traveled outside of the country in the last 21 days: No Have you had contact with anyone from an Ebola affected area: No Do you have a fever: No - Review of Systems Constitutional: Loss of Appetite, Malaise, Night Sweats, Changes in sleep, Weakness EENT: reports: Nose Congestion Respiratory: reports: No Symptoms reported Cardiac: reports: No Symptoms Reported GI: reports: Nausea, Poor Appetite, Abdominal cramping : reports: No Symptoms Reported Musculoskeletal: reports: Back Pain, Muscle Pain Integumentary: reports: Dryness Neuro: reports: Headache, Tremors Endocrine: reports: No Symptoms Reported Hematology: reports: No Symptoms Reported Psychiatric: reports: No Sypmtoms Reported, Judgement Intact, Mood/Affect Appropiate, Orientated x3, Depressed Other Systems: Reviewed and Negative Patient History - Patient Medical History Hx Anemia: No Hx Asthma: No Hx Chronic Obstructive Pulmonary Disease (COPD): No Hx Cancer: No Hx Cardiac Disorders: Yes Hx Congestive Heart Failure: No Hx Hypertension: Yes (on meds) Hx Hypercholesterolemia: Yes (on meds) Hx Pacemaker: No HX Cerebrovascular Accident: No Hx Seizures: No Hx Dementia: No Hx Diabetes: Yes (on meds, well controlled) Hx Gastrointestinal Disorders: No Hx Liver Disease: No Hx Genitourinary Disorders: No Hx Sexually Transmitted Disorders: No Hx Renal Disease (ESRD): No Hx Thyroid Disease: No Hx Human Immunodeficiency Virus (HIV): No (last 2019 negative) Hx Hepatitis C: No Hx Depression: Yes Hx Suicide Attempt: No Hx Bipolar Disorder: No Hx Schizophrenia: Yes (on meds, hospitalized once) - Patient Surgical History Past Surgical History: No Hx Neurologic Surgery: No Hx Cataract Extraction: No Hx Cardiac Surgery: No Hx Lung Surgery: No Hx Breast Surgery: No Hx Breast Biopsy: No Hx Abdominal Surgery: No Hx Appendectomy: No Hx Cholecystectomy: No Hx Genitourinary Surgery: No Hx Section: No Hx Orthopedic Surgery: No Anesthesia Reaction: No - PPD History Documented Results: Positive w/proof Implanted On Prior [facility] Admission?: No Date: 04/28/18 PPD to be Administered?: No - Smoking Cessation Smoking history: Former smoker Have you smoked in the past 12 months: No Hx Chewing Tobacco Use: No Initiated information on smoking cessation: Yes 'Breaking Loose' booklet given: 11/07/19 - Substance & Tx. History Hx Alcohol Use: Yes Hx Substance Use: Yes Substance Use Type: Alcohol, Cocaine Hx Substance Use Treatment: Yes (aci 08/22) - Substances abused Alcohol Substance route: Oral Frequency: Daily Amount used: 2 pints/day Age of first use: 22 Date of last use: 11/07/19 Cocaine Substance route: Smoking Frequency: Daily Amount used: 60$/day Age of first use: 27 Date of last use: 11/06/19 Admission Physical Exam [facility] - Vital Signs Vital Signs: Vital Signs - 24 hr 11/07/19 14:33 Temperature 97.6 F Pulse Rate 64 Respiratory 16 Rate Blood Pressure 106/64 - Physical General Appearance: Yes: Moderate Distress, Tremorous, Irritable, Sweating, Anxious HEENTM: Yes: Normal ENT Inspection, HUGH, Pharynx Normal Respiratory: Yes: Within Normal Limits, Lungs Clear, Normal Breath Sounds Neck: Yes: Within Normal Limits, Supple, Trachea in good position Breast: Yes: Within Normal Limits Cardiology: Yes: Within Normal Limits, Regular Rhythm, S1, S2, Tachycardia Abdominal: Yes: Within Normal Limits, Normal Bowel Sounds, Non Tender, Flat, Soft Genitourinary: Yes: Within Normal Limits Back: Yes: Muscle Spasm Musculoskeletal: Yes: Back pain, Muscle Pain Extremities: Yes: Tremors 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 NML intact, Fully Oriented, Alert, Motor Strength 5/5 Integumentary: Yes: Dry Lymphatic: Yes: Within Normal Limits - Diagnostic (1) Alcohol dependence with uncomplicated withdrawal Current Visit: No Status: Acute (2) Dehydration Current Visit: No Status: Chronic (3) Diabetes mellitus type II, non insulin dependent Current Visit: No Status: Chronic Comment: states well controlled -HgbA1c = 5.4 (4) Hypercholesterolemia Current Visit: No Status: Chronic (5) Hypertension Current Visit: No Status: Chronic Qualifiers: Hypertension type: essential hypertension Qualified Code(s): I10 - Essential (primary) hypertension (6) Depression Current Visit: No Status: Suspected Qualifiers: Depression Type: dysthymia Qualified Code(s): F34.1 - Dysthymic disorder (7) Positive PPD Current Visit: Yes Status: Acute Cleared for Admission [facility] - Detox or Rehab [facility] Level of Care: Medically Managed (patient has positive ppd,had chest xray done on 10/12/19 the copy of chest x ray in chart) Detox Regimen/Protocol: Librium Breathalyzer - Breathalyzer Breathalyzer: 0 Urine Drug Screen - Test Device Lot number: [id number] Expiration date: 08/03/21 - Control Is test valid?: Yes - Results Drug screen NEGATIVE: No Urine drug screen results: DAYAMI-Cocaine, BZO-Benzodiazepines Inpatient Rehab Admission - Rehab Decision to Admit Inpatient rehab admission?: No
[2019-11-07] MEDS ORDERED: METHOCARBAMOL 500 MG TABLET PO PRN (15:43)
[2019-11-07] MEDS ORDERED: ACETAMINOPHEN 325 MG TABLET (FP) PO PRN ×2 (15:43)
[2019-11-07] MEDS ORDERED: hydrOXYzine PAMOATE 25 MG CAPSULE (FP) PO PRN (15:43)
[2019-11-07] MEDS ORDERED: IBUPROFEN 400 MG TABLET (FP) PO PRN (15:43)
[2019-11-07] MEDS ORDERED: MAG HYDROX/AL HYDROX/SIMETH 30 ML UNIT-DOSE CUP PO PRN (15:43)
[2019-11-07] MEDS ORDERED: chlordiazePOXIDE HCL 25 MG CAPSULE PO PRN (15:43)
[2019-11-07] MEDS ORDERED: MELATONIN 5 MG TABLETS PO PRN (15:43)
[2019-11-07] MEDS ORDERED: BISMUTH SUBSALICYLATE 524 MG/30 ML UD PO PRN (15:43)
[2019-11-07] MEDS ORDERED: MAGNESIUM CITRATE 300 ML BOTTLE PO PRN (15:43)
[2019-11-07] MEDS ORDERED: MENTHOL/PHENOL 1 EACH UD MM PRN (15:43)
[2019-11-07] MEDS ORDERED: MAGNESIUM HYDROX 2400MG/30ML ORAL SUSPENSION 30 ML CUP PO PRN (15:43)
[2019-11-07] MEDS: metFORMIN HCL 500 MG TABLET (FP) PO SCH (18:22)
[2019-11-08] MEDS: DOCUSATE SODIUM 100 MG CAPSULE (FP) PO SCH ×3 (00:16→22:38)
[2019-11-08] MEDS: ATORVASTATIN CA 20 MG TABLET (FP) PO SCH ×2 (00:17→22:38)
[2019-11-08] MEDS: chlordiazePOXIDE HCL 25 MG CAPSULE PO SCH ×5 (00:17→22:38)
[2019-11-08] MEDS: THIAMINE HCL 100 MG TABLET (FP) PO SCH ×2 (00:17→22:38)
[2019-11-08] MEDS: MIRTAZAPINE 15 MG TABLET (FP) PO SCH ×2 (00:17→22:38)
[2019-11-08] MEDS: PRENATAL VITAMINS W/ FOLIC ACID TABLET (FP) PO SCH (10:26)
[2019-11-08] MEDS: ASPIRIN 81 MG CHEWABLE TABLETS PO SCH (10:26)
[2019-11-08] MEDS: LISINOPRIL 5 MG TABLET (FP) PO SCH (10:26)
--- NOTE | 2019-11-08 10:40 | CONSULT ---
[facility] Psychiatric Consult - Data Date of interview: 11/08/18 Admission source: [facility] Identifying data: Patient is a 59 year old single male, without children, unemployed, domiciled, and is supported by [facility]. This is one of multiple admissions for patient. Patient admitted to for alcohol and cocaine dependence. Substance Abuse History: - Smoking Cessation. Smoking history: Former smoker. Have you smoked in the past 12 months: No. Hx Chewing Tobacco Use: No. Initiated information on smoking cessation: Yes. 'Breaking Loose' booklet given : 11/07/19. - Substance & Tx. History. Hx Alcohol Use: Yes. Hx Substance Use : Yes. Substance Use Type: Alcohol, Cocaine. Hx Substance Use Treatment: Yes ( [facility] 08/22). - Substances abused. Alcohol. Substance route: Oral. Frequency: Daily. Amount used: 2 pints/day. Age of first use: 22. Date of last use: 11/07/19. Cocaine. Substance route: Smoking. Frequency: Daily. Amount used: 60$/day. Age of first use: 27. Date of last use: 11/06/19 Medical History: hypertension, hypercholesterolemia, diabetes Psychiatric History: Patient's first psychiatric contact was in his 20's at [facility] outpatient clinic due to mood instability. States that he was diagnosed with Bipolar disorder and prescribed psychotropic medications. He denies history of psychiatric hospitalizations, instead reports history of seeing various psychiatrist in an outpatient setting. He reports past history of being prescribed seroquel, depakote, and other psychotropic agent he can't recall. As per previous notes patient has been diagnosed with schizophrenia. He denies the diagnosis of schizophrenia but does admit to history of paranoid ideation. States that he currently see's an outpatient psychiatrist at [facility] and is only prescribed remeron 15mg. States that he is no longer on seroquel. Stated to typewriter assembler that his psychiatrist discontinued seroquel three months ago. At present patient denies auditory/visual hallucinations, paranoid ideation, suicidal/ homicidal ideation. Physical/Sexual Abuse/Trauma History: denies. Mental Status Exam - Mental Status Exam Alert and Oriented to: Time, Place, Person Cognitive Function: Good Patient Appearance: Well Groomed Mood: Withdrawn Affect: Appropriate Patient Behavior: Appropriate, Cooperative Speech Pattern: Appropriate Voice Loudness: Normal Thought Process: Intact, Goal Oriented Thought Disorder: Not Present Hallucinations: Denies Suicidal Ideation: Denies Homicidal Ideation: Denies Insight/Judgement: Poor Sleep: Poorly Appetite: Fair Muscle strength/Tone: Normal Gait/Station: Normal Psychiatric Findings - Problem List ([place] 1, 2,3) (1) Cocaine use disorder Current Visit: Yes Status: Acute (2) Alcohol dependence with uncomplicated withdrawal Current Visit: No Status: Acute (3) Substance-induced sleep disorder Current Visit: Yes Status: Acute (4) History of schizoaffective disorder Current Visit: No Status: Chronic - Initial Treatment Plan Initial Treatment Plan: Psychoeducation provided. Detoxification in progress. Will order Remeron 15mg HS. Benefits and side effects discussed. Verbal consent given.
[2019-11-08 13:37] LABS: HEMATOCRIT 37.8 % (35.4-49); HEMOGLOBIN 12.6 GM/dL (11.7-16.9); MCH 30.7 pg (25.7-33.7); MCHC 33.2 g/dl (32.0-35.9); MEAN CELL VOLUME 92.5 fl (80-96); MEAN PLT VOLUME 7.1 fl (7.5-11.1); PLATELET COUNT 292 K/MM3 (134-434); RBC 4.09 M/mm3 (4.00-5.60); RDW 14.4 % (11.9-15.9); WHITE BLOOD COUNT 4.5 K/mm3 (4.0-10.0)
[2019-11-08 14:10] LABS: ALBUMIN 3.5 g/dl (3.4-5.0); BILIRUBIN,TOTAL 0.4 mg/dL (0.2-1); BLOOD UREA NITROGEN 10.8 mg/dL (7-18); CALCIUM 8.9 mg/dL (8.5-10.1); TOT PROT 6.6 g/dl (6.4-8.2)
[2019-11-08] MEDS: VERAPAMIL HCL 180 MG E.R. TABLET PO SCH (14:17)
--- NOTE | 2019-11-08 16:58 | PN ---
S CIWA - CIWA Score Nausea/Vomitin-Mild Nausea/No Vomiting Muscle Tremors: 3 Anxiety: 3 Agitation: 2 Paroxysmal Sweats: 3 Orientation: 0-Oriented Tacttile Disturbances: 0-None Auditory Disturbances: 0-None Visual Disturbances: 0-None Headache: 0-None Present CIWA-Ar Total Score: 12 BHS Progress Note (SOAP) Subjective: Nausea, chills, sweating Objective: 11/08/19 16:57 Last Vital Signs Temp Pulse Resp BP Pulse Ox 96.8 F L 57 L 18 106/65 11/08/19 14:05 11/08/19 14:05 11/08/19 14:05 11/08/19 14:05 Laboratory Tests 11/07/19 11/08/19 11/08/19 17:03 05:42 07:30 WBC 4.5 RBC 4.09 Hgb 12.6 Hct 37.8 MCV 92.5 MCH 30.7 MCHC 33.2 RDW 14.4 Plt Count 292 MPV 7.1 L Sodium Potassium Chloride Carbon Dioxide Anion Gap BUN Creatinine Est GFR (CKD-EPI)AfAm Est GFR (CKD-EPI)NonAf POC Glucometer 67 111 Random Glucose Calcium Total Bilirubin AST ALT Alkaline Phosphatase Total Protein Albumin RPR Titer 11/08/19 11/08/19 07:30 07:30 WBC RBC Hgb Hct MCV MCH MCHC RDW Plt Count MPV Sodium 139 Potassium 4.0 Chloride 107 Carbon Dioxide 25 Anion Gap 8 BUN 10.8 Creatinine 1.0 Est GFR (CKD-EPI)AfAm 96.40 Est GFR (CKD-EPI)NonAf 83.18 POC Glucometer Random Glucose 103 Calcium 8.9 Total Bilirubin 0.4 AST 23 ALT 34 Alkaline Phosphatase 72 Total Protein 6.6 Albumin 3.5 RPR Titer Nonreactive Labs reviewed Assessment: 11/08/19 16:58 Withdrawal sxs Plan: Continue detox Encouraged PO water intake
--- NOTE | 2019-11-08 17:09 | EKG ---
Test Reason : Blood Pressure : / mmHG Vent. Rate : 053 BPM Atrial Rate : 053 BPM P-R Int : 154 ms QRS Dur : 088 ms QT Int : 456 ms P-R-T Axes : 022 044 081 degrees QTc Int : 427 ms SINUS BRADYCARDIA OTHERWISE NORMAL ECG WHEN COMPARED WITH ECG OF 26-APR-2018 13:02, NO SIGNIFICANT CHANGE WAS FOUND Confirmed by JENNIFER SANTIAGO MD ([id number]) on 11/08/2019 5:08:49 PM Referred By: Confirmed By:JENNIFER SANTIAGO MD
[2019-11-08] MEDS: metFORMIN HCL 500 MG TABLET (FP) PO SCH (17:26)
[2019-11-09] MEDS: chlordiazePOXIDE HCL 25 MG CAPSULE PO SCH ×3 (07:02→17:32)
[2019-11-09 09:56] LABS: PH,URINE 7.5 (5.0-8.0); URINE APPEARANCE CLEAR; URINE BILIRUBIN NEGATIVE (NEGATIVE); URINE COLOR YELLOW; URINE GLUCOSE (UA) NEGATIVE (NEGATIVE); URINE KETONE NEGATIVE (NEGATIVE); URINE LEUK ESTERASE NEGATIVE (NEGATIVE); URINE NITRITE NEGATIVE (NEGATIVE); URINE PROTEIN NEGATIVE (NEGATIVE); URINE UROBILINOGEN 0.2 mg/dL (0.2-1.0)
--- NOTE | 2019-11-09 11:12 | PN ---
S CIWA - CIWA Score Nausea/Vomitin-Mild Nausea/No Vomiting Muscle Tremors: 2 Anxiety: 2 Agitation: 2 Paroxysmal Sweats: No Perspiration Orientation: 0-Oriented Tacttile Disturbances: 1-Very Mild Itch/Numbness Auditory Disturbances: 0-None Visual Disturbances: 0-None Headache: 1-Very Mild CIWA-Ar Total Score: 9 S Progress Note (SOAP) Subjective: alert,irritable,anxious,interrupted sleep,pain in the body Objective: 11/09/19 11:17 Vital Signs Temperature 97.9 F 11/09/19 09:18 Pulse Rate 68 11/09/19 09:18 Respiratory Rate 18 11/09/19 09:18 Blood Pressure 118/67 11/09/19 09:18 O2 Sat by Pulse Oximetry (%) Laboratory Last Values WBC 4.5 K/mm3 (4.0-10.0) 11/08/19 07:30 RBC 4.09 M/mm3 (4.00-5.60) 11/08/19 07:30 Hgb 12.6 GM/dL (11.7-16.9) 11/08/19 07:30 Hct 37.8 % (35.4-49) 11/08/19 07:30 MCV 92.5 fl (80-96) 11/08/19 07:30 MCH 30.7 pg (25.7-33.7) 11/08/19 07:30 MCHC 33.2 g/dl (32.0-35.9) 11/08/19 07:30 RDW 14.4 % (11.9-15.9) 11/08/19 07:30 Plt Count 292 K/MM3 (134-434) 11/08/19 07:30 MPV 7.1 fl (7.5-11.1) L 11/08/19 07:30 Sodium 139 mmol/L (136-145) 11/08/19 07:30 Potassium 4.0 mmol/L (3.5-5.1) 11/08/19 07:30 Chloride 107 mmol/L (98-107) 11/08/19 07:30 Carbon Dioxide 25 mmol/L (21-32) 11/08/19 07:30 Anion Gap 8 MMOL/L (8-16) 11/08/19 07:30 BUN 10.8 mg/dL (7-18) 11/08/19 07:30 Creatinine 1.0 mg/dL (0.55-1.3) 11/08/19 07:30 Est GFR (CKD-EPI)AfAm 96.40 11/08/19 07:30 Est GFR (CKD-EPI)NonAf 83.18 11/08/19 07:30 POC Glucometer 111 UNITS (80-120) 11/08/19 05:42 Random Glucose 103 mg/dL (74-106) 11/08/19 07:30 Calcium 8.9 mg/dL (8.5-10.1) 11/08/19 07:30 Total Bilirubin 0.4 mg/dL (0.2-1) 11/08/19 07:30 AST 23 U/L (15-37) 11/08/19 07:30 ALT 34 U/L (13-61) 11/08/19 07:30 Alkaline Phosphatase 72 U/L (45-117) 11/08/19 07:30 Total Protein 6.6 g/dl (6.4-8.2) 11/08/19 07:30 Albumin 3.5 g/dl (3.4-5.0) 11/08/19 07:30 Urine Color Yellow 11/09/19 08:15 Urine Appearance Clear 11/09/19 08:15 Urine pH 7.5 (5.0-8.0) D 11/09/19 08:15 Ur Specific [place] 1.007 (1.010-1.035) L 11/09/19 08:15 Urine Protein Negative (NEGATIVE) 11/09/19 08:15 Urine Glucose (UA) Negative (NEGATIVE) 11/09/19 08:15 Urine Ketones Negative (NEGATIVE) 11/09/19 08:15 Urine Blood Negative (NEGATIVE) 11/09/19 08:15 Urine Nitrite Negative (NEGATIVE) 11/09/19 08:15 Urine Bilirubin Negative (NEGATIVE) 11/09/19 08:15 Urine Urobilinogen 0.2 mg/dL (0.2-1.0) 11/09/19 08:15 Ur Leukocyte Esterase Negative (NEGATIVE) 11/09/19 08:15 RPR Titer Nonreactive (NONREACTIVE) 11/08/19 07:30 Assessment: 11/09/19 11:18 withdrawal symptom Plan: continue detox librium regimen,bgm monitoring
[2019-11-09] MEDS: DOCUSATE SODIUM 100 MG CAPSULE (FP) PO SCH (11:14)
[2019-11-09] MEDS: ASPIRIN 81 MG CHEWABLE TABLETS PO SCH (11:15)
[2019-11-09] MEDS: VERAPAMIL HCL 180 MG E.R. TABLET PO SCH (11:15)
[2019-11-09] MEDS: LISINOPRIL 5 MG TABLET (FP) PO SCH (11:15)
[2019-11-09] MEDS: PRENATAL VITAMINS W/ FOLIC ACID TABLET (FP) PO SCH (11:15)
[2019-11-09] MEDS: metFORMIN HCL 500 MG TABLET (FP) PO SCH (17:32)
[2019-11-10] MEDS ORDERED: chlordiazePOXIDE HCL 10 MG CAPSULE PO PRN
[2019-11-10] MEDS: chlordiazePOXIDE HCL 25 MG CAPSULE PO SCH (00:10)
[2019-11-10] MEDS: DOCUSATE SODIUM 100 MG CAPSULE (FP) PO SCH ×3 (00:10→17:20)
[2019-11-10] MEDS: THIAMINE HCL 100 MG TABLET (FP) PO SCH ×2 (00:11→17:23)
[2019-11-10] MEDS: ATORVASTATIN CA 20 MG TABLET (FP) PO SCH ×2 (00:11→17:20)
[2019-11-10] MEDS: MIRTAZAPINE 15 MG TABLET (FP) PO SCH ×3 (00:11→21:39)
[2019-11-10] MEDS: chlordiazePOXIDE HCL 10 MG CAPSULE PO SCH ×4 (06:27→23:28)
[2019-11-10] MEDS ORDERED: THIAMINE HCL 100 MG TABLET (FP) PO SCH (10:13)
[2019-11-10] MEDS ORDERED: MIRTAZAPINE 15 MG TABLET (FP) PO SCH (10:14)
[2019-11-10] MEDS ORDERED: DOCUSATE SODIUM 100 MG CAPSULE (FP) PO SCH (10:15)
--- NOTE | 2019-11-10 10:19 | PN ---
S CIWA - CIWA Score Nausea/Vomitin-Mild Nausea/No Vomiting Muscle Tremors: 2 Anxiety: 1-Mildly Anxious Agitation: 1-Slight > Activity Paroxysmal Sweats: No Perspiration Orientation: 0-Oriented Tacttile Disturbances: 0-None Auditory Disturbances: 0-None Visual Disturbances: 0-None Headache: 0-None Present CIWA-Ar Total Score: 5 BHS Progress Note (SOAP) Subjective: pt here for alcohol detox- pt would like medications before 10pm. Says he goes to sleep by 9pm and does not want to be woken up. O: Vital Signs - 24 hr 11/09/19 11/09/19 11/10/19 17:23 21:18 00:30 Temperature 97.5 F L 97.7 F Pulse Rate 69 69 Respiratory 18 18 18 Rate Blood Pressure 123/54 L 118/68 11/10/19 11/10/19 11/10/19 03:30 06:22 09:26 Temperature 97 F L 97.5 F L Pulse Rate 63 71 Respiratory 18 18 18 Rate Blood Pressure 106/55 L 123/64 Laboratory Tests 11/07/19 11/08/19 11/08/19 17:03 05:42 07:30 WBC 4.5 RBC 4.09 Hgb 12.6 Hct 37.8 MCV 92.5 MCH 30.7 MCHC 33.2 RDW 14.4 Plt Count 292 MPV 7.1 L Sodium Potassium Chloride Carbon Dioxide Anion Gap BUN Creatinine Est GFR (CKD-EPI)AfAm Est GFR (CKD-EPI)NonAf POC Glucometer 67 111 Random Glucose Calcium Total Bilirubin AST ALT Alkaline Phosphatase Total Protein Albumin Urine Color Urine Appearance Urine pH Ur Specific [place] Urine Protein Urine Glucose (UA) Urine Ketones Urine Blood Urine Nitrite Urine Bilirubin Urine Urobilinogen Ur Leukocyte Esterase RPR Titer 11/08/19 11/08/19 11/09/19 07:30 07:30 08:15 WBC RBC Hgb Hct MCV MCH MCHC RDW Plt Count MPV Sodium 139 Potassium 4.0 Chloride 107 Carbon Dioxide 25 Anion Gap 8 BUN 10.8 Creatinine 1.0 Est GFR (CKD-EPI)AfAm 96.40 Est GFR (CKD-EPI)NonAf 83.18 POC Glucometer Random Glucose 103 Calcium 8.9 Total Bilirubin 0.4 AST 23 ALT 34 Alkaline Phosphatase 72 Total Protein 6.6 Albumin 3.5 Urine Color Yellow Urine Appearance Clear Urine pH 7.5 D Ur Specific [place] 1.007 L Urine Protein Negative Urine Glucose (UA) Negative Urine Ketones Negative Urine Blood Negative Urine Nitrite Negative Urine Bilirubin Negative Urine Urobilinogen 0.2 Ur Leukocyte Esterase Negative RPR Titer Nonreactive 11/09/19 16:48 WBC RBC Hgb Hct MCV MCH MCHC RDW Plt Count MPV Sodium Potassium Chloride Carbon Dioxide Anion Gap BUN Creatinine Est GFR (CKD-EPI)AfAm Est GFR (CKD-EPI)NonAf POC Glucometer 243 Random Glucose Calcium Total Bilirubin AST ALT Alkaline Phosphatase Total Protein Albumin Urine Color Urine Appearance Urine pH Ur Specific [place] Urine Protein Urine Glucose (UA) Urine Ketones Urine Blood Urine Nitrite Urine Bilirubin Urine Urobilinogen Ur Leukocyte Esterase RPR Titer a/p: alcohol detox- continue with librium HTN/HLD/DM: changed meds to 10am and 5pm schedule d/c in 2 days
[2019-11-10] MEDS: PRENATAL VITAMINS W/ FOLIC ACID TABLET (FP) PO SCH (10:21)
[2019-11-10] MEDS: VERAPAMIL HCL 180 MG E.R. TABLET PO SCH (10:21)
[2019-11-10] MEDS: LISINOPRIL 5 MG TABLET (FP) PO SCH (10:22)
[2019-11-10] MEDS: ASPIRIN 81 MG CHEWABLE TABLETS PO SCH (10:24)
[2019-11-10] MEDS: metFORMIN HCL 500 MG TABLET (FP) PO SCH (17:20)
[2019-11-10] MEDS ORDERED: ATORVASTATIN CA 20 MG TABLET (FP) PO SCH (22:00)
[2019-11-11] MEDS: chlordiazePOXIDE HCL 10 MG CAPSULE PO SCH ×2 (06:03→17:15)
[2019-11-11] MEDS: VERAPAMIL HCL 180 MG E.R. TABLET PO SCH (10:36)
[2019-11-11] MEDS: LISINOPRIL 5 MG TABLET (FP) PO SCH (10:36)
[2019-11-11] MEDS: ASPIRIN 81 MG CHEWABLE TABLETS PO SCH (10:36)
[2019-11-11] MEDS: PRENATAL VITAMINS W/ FOLIC ACID TABLET (FP) PO SCH (10:36)
[2019-11-11] MEDS: DOCUSATE SODIUM 100 MG CAPSULE (FP) PO SCH ×2 (10:36→17:15)
--- NOTE | 2019-11-11 10:42 | PN ---
S CIWA - CIWA Score Nausea/Vomitin-Mild Nausea/No Vomiting Muscle Tremors: 1-None Visible, but [place] Anxiety: 1-Mildly Anxious Agitation: 1-Slight > Activity Paroxysmal Sweats: No Perspiration Orientation: 0-Oriented Tacttile Disturbances: 1-Very Mild Itch/Numbness Auditory Disturbances: 0-None Visual Disturbances: 0-None Headache: 1-Very Mild CIWA-Ar Total Score: 6 BHS Progress Note (SOAP) Subjective: alert,irritable,anterrupted sleep Objective: 11/11/19 10:41 Vital Signs Temperature 97.5 F L 11/11/19 09:13 Pulse Rate 61 11/11/19 09:13 Respiratory Rate 18 11/11/19 09:13 Blood Pressure 116/70 11/11/19 09:13 O2 Sat by Pulse Oximetry (%) Assessment: 11/11/19 10:41 withdrawal symptom Plan: continue detox librium regimen,discharge in am
[2019-11-11] MEDS: metFORMIN HCL 500 MG TABLET (FP) PO SCH (17:15)
[2019-11-11] MEDS: ATORVASTATIN CA 20 MG TABLET (FP) PO SCH (17:15)
[2019-11-11] MEDS: THIAMINE HCL 100 MG TABLET (FP) PO SCH (17:15)
[2019-11-11] MEDS: MIRTAZAPINE 15 MG TABLET (FP) PO SCH (22:20)
[2019-11-12] MEDS ORDERED: chlordiazePOXIDE HCL 10 MG CAPSULE PO ONE (05:00)
--- NOTE | 2019-11-12 08:33 | DS ---
[facility] Detox Discharge Summary Admission Date: 11/07/19 Discharge Date: 11/12/19 - History Present History: Alcohol Dependence, Cocaine Dependence - Physical Exam Results Vital Signs: Vital Signs Temperature 97.2 F L 11/12/19 06:35 Pulse Rate 65 11/12/19 06:35 Respiratory Rate 18 11/12/19 06:35 Blood Pressure 102/63 11/12/19 06:35 O2 Sat by Pulse Oximetry (%) - Treatment Hospital Course: Detox Protocol Followed, Detoxed Safely, Responded well, Discharged Condition Good, Rehab Referral Accepted - Medication Discharge Medications: Ambulatory Orders Aspirin [ASA -] 81 mg PO DAILY #30 tab.chew 09/03/17 Lisinopril [Zestril] 2.5 mg PO DAILY #30 tab 09/03/17 Atorvastatin Ca [Lipitor] 60 mg PO HS 03/01/18 metFORMIN XR [Glucophage Xr -] 1,000 mg PO DAILY 03/01/18 Docusate Sodium [Colace -] 100 mg PO TID PRN 04/26/18 Mirtazapine [Remeron -] 15 mg PO HS #30 tablet 04/27/18 Verapamil HCl [Verapamil ER] 180 mg PO DAILY 11/07/19 - Diagnosis (1) Cocaine use disorder Current Visit: Yes Status: Acute (2) Positive PPD Current Visit: Yes Status: Acute (3) Substance-induced sleep disorder Current Visit: Yes Status: Acute (4) Alcohol dependence with uncomplicated withdrawal Current Visit: Yes Status: Chronic (5) Substance induced mood disorder Current Visit: No Status: Acute (6) Diabetes mellitus type II, non insulin dependent Current Visit: No Status: Chronic (7) History of schizoaffective disorder Current Visit: No Status: Chronic (8) Hypercholesterolemia Current Visit: Yes Status: Chronic (9) Hypertension Current Visit: Yes Status: Chronic Qualifiers: Hypertension type: essential hypertension Qualified Code(s): I10 - Essential (primary) hypertension (10) Schizoaffective disorder Current Visit: No Status: Chronic Qualifiers: Schizoaffective disorder type: unspecified Qualified Code(s): F25.9 - Schizoaffective disorder, unspecified (11) Depression Current Visit: No Status: Suspected Qualifiers: Depression Type: dysthymia Qualified Code(s): F34.1 - Dysthymic disorder - AMA Did Patient Leave Against Medical Advice: No
[2019-11-12 09:18] VITALS: BP 111/63; PULSE 61; TEMP 97.3
[2019-11-12] MEDS: VERAPAMIL HCL 180 MG E.R. TABLET PO SCH ×2 (10:17→10:19)
[2019-11-12] MEDS: ASPIRIN 81 MG CHEWABLE TABLETS PO SCH ×2 (10:17→10:19)
[2019-11-12] MEDS: PRENATAL VITAMINS W/ FOLIC ACID TABLET (FP) PO SCH ×2 (10:17→10:19)
[2019-11-12] MEDS: DOCUSATE SODIUM 100 MG CAPSULE (FP) PO SCH ×2 (10:17→10:19)
[2019-11-12] MEDS: LISINOPRIL 5 MG TABLET (FP) PO SCH (10:20)
== END 2019-11-12 10:40 | disposition other institution (70) | DRG 897 ==
LOC: YASAS 11:38 → Y6N 16:14
PROVIDERS: ADMIT Allergy & Immunology; ATTEND Allergy & Immunology
PROC: HZ2ZZZZ Detoxification Services for Substance Abuse Treatment (ICD-10-PCS; principal; 2019-11-07)
DX: F10.230 Alcohol dependence with withdrawal, uncomplicated (principal); F14.20 Cocaine dependence, uncomplicated; F19.282 Other psychoactive substance dependence with psychoactive substance-induced sleep disorder; F19.24 Other psychoactive substance dependence with psychoactive substance-induced mood disorder; F25.9 Schizoaffective disorder, unspecified; F34.1 Dysthymic disorder; I10 Essential (primary) hypertension; E11.9 Type 2 diabetes mellitus without complications; Z79.84 Long term (current) use of oral hypoglycemic drugs; E78.00 Pure hypercholesterolemia, unspecified; E86.0 Dehydration; R76.11 Nonspecific reaction to tuberculin skin test without active tuberculosis; Z87.891 Personal history of nicotine dependence
CPT/HCPCS: 36415; 80053; 81003; 82962; 85027; 86593; 93005; 93010

== ENCOUNTER 2020-06-01 09:05 | Inpatient (IN) | payer OTHER ==
--- NOTE | 2020-06-01 10:10 | BHS.RME ---
Substance Use & Tx History - Substance Use History Alcohol Substance amount: 2 pints vodka Frequency of use: Daily Substance route: Oral Date of Last Use: 06/01/20 Cocaine-Crack Substance amount: $80 Frequency of use: Less than 3 times per week Substance route: Smoking Date of Last Use: 05/25/20 Physical/Psych/Mental Status - Behavior General Behavior: Increased activity (restlessness, agitation) Eye Contact: Normal - Cooperativeness Cooperativeness: Cooperative - Thinking Thought Processes: Tight, Logical, Goal Directed - Physical Health Problems Is patient presently having any pain?: No Does patient presently have any injuries (include location): No Does patient currently have a fever: No Is patient : No CIWA Nausea/Vomitin Muscle Tremors: 3 Anxiety: 3 Agitation: 2 Paroxysmal Sweats: No Perspiration Orientation: 0-Oriented Tacttile Disturbances: 0-None Auditory Disturbances: 0-None Visual Disturbances: 0-None Headache: 0-None Present CIWA-Ar Total Score: 11
--- NOTE | 2020-06-01 10:12 | HP ---
CIWA Score Nausea/Vomitin Muscle Tremors: 3 Anxiety: 3 Agitation: 2 Paroxysmal Sweats: No Perspiration Orientation: 0-Oriented Tacttile Disturbances: 0-None Auditory Disturbances: 0-None Visual Disturbances: 0-None Headache: 0-None Present CIWA-Ar Total Score: 11 - Admission Criteria OASAS Guidelines: Admission for Medically Managed Detox: Requires at least one of the followin. CIWA greater than 12 2. Seizures within the past 24 hours 3. Delirium tremens within the past 24 hours 4. Hallucinations within the past 24 hours 5. Acute intervention needed for co occurring medical disorder 6. Acute intervention needed for co occurring psychiatric disorder 7. Severe withdrawal that cannot be handled at a lower level of care (continued vomiting, continued diarrhea, abnormal vital signs) requiring intravenous medication and/or fluids 8. Admitting History and Physical - Admission Chief Complaint: "I want to go to detox and then rehab this time." History of Present Illness: 60 year old male with history of alcohol dependence with withdrawal. He was last here 11/07-11/12/19 and 03/31-04/04/20 both times completing detox but no follow up with aftercare or rehab. He immediately relapsed after discharge. His longest period of sobriety has been 3 weeks. Substance Use & Tx History - Substance Use History Alcohol Substance amount: 2 pints vodka Frequency of use: Daily Substance route: Oral Date of Last Use: 06/01/20 Cocaine-Crack Substance amount: $80 Frequency of use: Less than 3 times per week Substance route: Smoking Date of Last Use: 05/25/20 Nicotine; he is a former smoker stopped 3 years ago. PMH: HTN, Pre-diabetes Psurg: None Psych: Depression on meds He lives alone in the [place] and has no legal issues pending. See copies of CBC, CMP, RPR, done 05/19/20 by his primary care clinic and SARS-2 COVID antibody positive and COVID PCR negative 05/13/20 done on same date. He meets criteria for detox as he has a poor environment for recovery and has medical and psychiatric co-morbidities. History Source: Patient Limitations to Obtaining History: No Limitations - Past Medical History Cardiovascular: Yes: HTN Psych: Yes: Depression Endocrine: Yes: Diabetes Mellitus - Past Surgical History Past Surgical History: Yes: None - Smoking History Smoking history: Former smoker Have you smoked in the past 12 months: No If you are a former smoker, when did you quit?: 2017 - Alcohol/Substance Use Hx Alcohol Use: Yes History of Substance Use: reports: Cocaine - Social History Usual Living Arrangement: Yes: Alone Do you think of yourself as: Straight/Heterosexual ADL: Independent Occupation: unemployed History of Recent Travel: No Admission ROS S - HPI Allergies/Adverse Reactions: Allergies Allergy/AdvReac Type Severity Reaction Status Date / Time No Known Allergies Allergy Verified 03/31/20 09:47 Exam Limitations: No Limitations - Ebola screening Have you traveled outside of the country in the last 21 days: No Have you had contact with anyone from an Ebola affected area: No Have you been sick,other than usual withdrawal symptoms: No Do you have a fever: No - Review of Systems Constitutional: Chills EENT: reports: No Symptoms Reported Respiratory: reports: No Symptoms reported Cardiac: reports: No Symptoms Reported GI: reports: No Symptoms Reported : reports: No Symptoms Reported Musculoskeletal: reports: No Symptoms Reported Integumentary: reports: No Symptoms Reported Neuro: reports: No Symptoms reported Endocrine: reports: No Symptoms Reported Hematology: reports: No Symptoms Reported Psychiatric: reports: Judgement Intact, Mood/Affect Appropiate, Orientated x3, Agitated, Anxious Other Systems: Reviewed and Negative Patient History - Patient Medical History Hx Anemia: No Hx Asthma: No Hx Chronic Obstructive Pulmonary Disease (COPD): No Hx Cancer: No Hx Cardiac Disorders: No Hx Congestive Heart Failure: No Hx Hypertension: Yes Hx Hypercholesterolemia: Yes (on meds) Hx Pacemaker: No HX Cerebrovascular Accident: No Hx Seizures: No Hx Dementia: No Hx Diabetes: Yes Hx Gastrointestinal Disorders: No Hx Liver Disease: No Hx Genitourinary Disorders: No Hx Sexually Transmitted Disorders: No Hx Renal Disease (ESRD): No Hx Thyroid Disease: No Hx Human Immunodeficiency Virus (HIV): No (last 2019 negative) Hx Hepatitis C: No Hx Depression: Yes Hx Suicide Attempt: No Hx Bipolar Disorder: No Hx Schizophrenia: No - Patient Surgical History Past Surgical History: No Hx Neurologic Surgery: No Hx Cataract Extraction: No Hx Cardiac Surgery: No Hx Lung Surgery: No Hx Breast Surgery: No Hx Breast Biopsy: No Hx Abdominal Surgery: No Hx Appendectomy: No Hx Cholecystectomy: No Hx Genitourinary Surgery: No Hx Section: No Hx Orthopedic Surgery: No Anesthesia Reaction: No - PPD History Previous Implant?: No Documented Results: Positive w/proof Implanted On Prior R Admission?: No Date: 04/01/20 (CXR) Results: normal CXR PPD to be Administered?: No - Smoking Cessation Smoking history: Former smoker Have you smoked in the past 12 months: No If you are a former smoker, when did you quit?: 2017 Cigars Per Day: 0 Hx Chewing Tobacco Use: No Initiated information on smoking cessation: No - Substances abused Alcohol Substance route: Oral Frequency: Daily Amount used: 2 pints vodka Age of first use: 23 Date of last use: 06/01/20 (midnight) Crack Substance route: Smoking Frequency: Daily Amount used: $80 Age of first use: 23 Date of last use: 05/25/20 Admission Physical Exam BHS - Physical General Appearance: Yes: Mild Distress, Thin, Tremorous, Irritable, Sweating, Anxious HEENTM: Yes: EOMI, Hearing grossly Normal, Normal ENT Inspection, Normocephalic, Normal Voice, HUGH, Pharynx Normal, Tm's normal Respiratory: Yes: Chest Non-Tender, Lungs Clear, Normal Breath Sounds, No Respiratory Distress, No Accessory Muscle Use Neck: Yes: No masses,lesions,Nodules, Supple Breast: Yes: Within Normal Limits Cardiology: Yes: Regular Rhythm, Regular Rate, S1, S2 Abdominal: Yes: Normal Bowel Sounds, Non Tender, Flat, Soft Genitourinary: Yes: Within Normal Limits Back: Yes: Normal Inspection Musculoskeletal: Yes: full range of Motion, Gait Steady, Pelvis Stable Extremities: Yes: Normal Capillary Refill, Normal Inspection, Normal Range of Motion, Non-Tender Neurological: Yes: 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 intact, Fully Oriented, Alert, Motor Strength 5/5, Normal Mood/Affect, Normal Response Integumentary: Yes: Normal Color, Dry, Warm Lymphatic: Yes: Within Normal Limits - Diagnostic (1) Cocaine use disorder Current Visit: Yes Status: Acute (2) Positive PPD Current Visit: Yes Status: Acute (3) Substance induced mood disorder Current Visit: Yes Status: Acute (4) Substance-induced sleep disorder Current Visit: Yes Status: Acute (5) Alcohol dependence with uncomplicated withdrawal Current Visit: No Status: Chronic (6) Diabetes mellitus type II, non insulin dependent Current Visit: Yes Status: Chronic Comment: states well controlled -HgbA1c = 5.4 (7) Hypercholesterolemia Current Visit: Yes Status: Chronic (8) Hypertension Current Visit: Yes Status: Chronic Qualifiers: Hypertension type: essential hypertension Qualified Code(s): I10 - Essential (primary) hypertension (9) Depression Current Visit: Yes Status: Suspected Qualifiers: Depression Type: dysthymia Qualified Code(s): F34.1 - Dysthymic disorder Cleared for Admission S - Detox or Rehab [facility] Level of Care: Medically Managed Detox Regimen/Protocol: Librium Claeared for Rehab Admission: No Screened but not Admitted - Documentation of Visit Screened but not Admitted: No Breathalyzer - Breathalyzer Breathalyzer: 0 Urine Drug Screen - Test Device Lot number: [id number] Expiration date: 07/04/21 - Control Is test valid?: Yes - Results Drug screen NEGATIVE: No Urine drug screen results: DAYAMI-Cocaine Inpatient Rehab Admission - Rehab Decision to Admit Inpatient rehab admission?: No
[2020-06-01] MEDS ORDERED: MENTHOL/PHENOL 1 EACH UD MM PRN (10:21)
[2020-06-01] MEDS ORDERED: chlordiazePOXIDE HCL 25 MG CAPSULE PO PRN (10:21)
[2020-06-01] MEDS ORDERED: ACETAMINOPHEN 325 MG TABLET (FP) PO PRN ×2 (10:21)
[2020-06-01] MEDS ORDERED: MAGNESIUM CITRATE 300 ML BOTTLE PO PRN (10:21)
[2020-06-01] MEDS ORDERED: ONDANSETRON *ODT* 4 MG TABLET SL ONE (10:21)
[2020-06-01] MEDS ORDERED: NICOTINE POLACRILEX 2 MG GUM BUC PRN (10:21)
[2020-06-01] MEDS ORDERED: MAG HYDROX/AL HYDROX/SIMETH 30 ML UNIT-DOSE CUP PO PRN (10:21)
[2020-06-01] MEDS ORDERED: BISMUTH SUBSALICYLATE 262 MG/15 ML BTL PO PRN (10:21)
[2020-06-01] MEDS ORDERED: METHOCARBAMOL 500 MG TABLET PO PRN (10:21)
[2020-06-01] MEDS ORDERED: IBUPROFEN 400 MG TABLET (FP) PO PRN (10:21)
[2020-06-01] MEDS ORDERED: MAGNESIUM HYDROX 2400MG/30ML ORAL SUSPENSION 30 ML CUP PO PRN (10:21)
[2020-06-01 10:52] VITALS: BMI 26.5
[2020-06-01] MEDS: chlordiazePOXIDE HCL 25 MG CAPSULE PO SCH ×3 (11:50→22:32)
[2020-06-01] MEDS: NICOTINE 7 MG/24 HOURS TOPICAL PATCH TD SCH (11:52)
[2020-06-01] MEDS: PRENATAL VITAMINS W/ FOLIC ACID TABLET (FP) PO SCH (11:52)
[2020-06-01] MEDS: hydrOXYzine PAMOATE 25 MG CAPSULE (FP) PO SCH ×3 (13:57→22:31)
[2020-06-01] MEDS ORDERED: DOCUSATE SODIUM 100 MG CAPSULE (FP) PO PRN (17:56)
[2020-06-01] MEDS ORDERED: SENNOSIDES 8.6MG TABLET (FP) PO PRN (17:57)
--- NOTE | 2020-06-01 17:58 | PN ---
S Progress Note Note: per nursing pt requesting own meds : Senna and Colace instead of MOM meds added Vital Signs - 24 hr 06/01/20 06/01/20 06/01/20 10:47 10:48 11:40 Temperature 98 F 97.1 F L Pulse Rate 73 59 L Respiratory 20 18 Rate Blood Pressure 104/71 111/73 O2 Sat by Pulse 99 97 Oximetry (%) 06/01/20 06/01/20 13:55 16:54 Temperature 97.8 F 97.5 F L Pulse Rate 61 60 Respiratory 18 18 Rate Blood Pressure 97/54 L 104/60 O2 Sat by Pulse 97 Oximetry (%)
[2020-06-01] MEDS: MELATONIN 5 MG TABLETS PO SCH (22:31)
[2020-06-01] MEDS: THIAMINE HCL 100 MG TABLET (FP) PO SCH (22:31)
[2020-06-02] MEDS: chlordiazePOXIDE HCL 25 MG CAPSULE PO SCH ×4 (06:34→23:16)
[2020-06-02] MEDS: hydrOXYzine PAMOATE 25 MG CAPSULE (FP) PO SCH ×5 (06:34→23:16)
[2020-06-02] MEDS ORDERED: DOCUSATE SODIUM 100 MG CAPSULE (FP) PO SCH (09:45)
--- NOTE | 2020-06-02 09:46 | PN ---
S CIWA - CIWA Score Nausea/Vomitin-No Nausea/No Vomiting Muscle Tremors: 3 Anxiety: 4-Mod. Anxious/Guarded Agitation: 3 Paroxysmal Sweats: No Perspiration Orientation: 0-Oriented Tacttile Disturbances: 0-None Auditory Disturbances: 0-None Visual Disturbances: 0-None Headache: 0-None Present CIWA-Ar Total Score: 10 BHS Progress Note (SOAP) Subjective: Pt is a 60 y/o male admitted to detox for alcohol withdrawal sx. Pt is on Librium taper. c/o Anxiety and Irritability. Pt reports he takes Lipitor 80 mg po HS and Metformin ER 750 mg po BID verified from Pt's home pharmacy-[facility] Objective: 06/02/20 13:50 Vital Signs - 24 hr 06/01/20 06/01/20 06/01/20 13:55 16:54 20:21 Temperature 97.8 F 97.5 F L 97.5 F L Pulse Rate 61 60 69 Respiratory 18 18 16 Rate Blood Pressure 97/54 L 104/60 102/58 L O2 Sat by Pulse 97 98 Oximetry (%) 06/02/20 06/02/20 07:00 09:12 Temperature 97.0 F L 97.1 F L Pulse Rate 56 L 65 Respiratory 18 18 Rate Blood Pressure 109/61 120/72 O2 Sat by Pulse 98 Oximetry (%) Laboratory Tests 06/01/20 06/01/20 06/02/20 11:21 12:25 06:31 POC Glucometer 88 99 COVID-19 (QUAN) Not detected See copies of CBC, CMP, RPR, done 05/19/20 by his primary care clinic and SARS-2 COVID antibody positive and COVID PCR negative 05/13/20 done on same date. alert o x 3 nad oob ambulating with steady gait 06/02/20 13:51 Assessment: 06/02/20 13:50 withdrawal sx Plan: cont detox increase po fluids maintain safety
[2020-06-02] MEDS ORDERED: ASPIRIN 81 MG CHEWABLE TABLETS PO SCH (10:00)
[2020-06-02] MEDS ORDERED: LISINOPRIL 5 MG TABLET (FP) PO SCH (10:15)
[2020-06-02] MEDS ORDERED: VERAPAMIL HCL 180 MG PO SCH (10:15)
[2020-06-02] MEDS ORDERED: VERAPAMIL HCL 180 MG E.R. TABLET PO SCH (10:15)
[2020-06-02] MEDS: NICOTINE 7 MG/24 HOURS TOPICAL PATCH TD SCH (11:40)
[2020-06-02] MEDS: PRENATAL VITAMINS W/ FOLIC ACID TABLET (FP) PO SCH (11:42)
[2020-06-02] MEDS: DOCUSATE SODIUM 100 MG CAPSULE (FP) PO SCH ×2 (11:46→18:34)
--- NOTE | 2020-06-02 16:23 | CONSULT ---
[facility] Psychiatric Consult - Data Date of interview: 06/02/20 Admission source: [facility] Identifying data: Patient is a 60 year old single male, without children, unemployed, domiciled, and is supported by [facility]. This is one of multiple admissions for patient. Patient admitted to for alcohol and cocaine dependence. Substance Abuse History: Smoking Cessation. Smoking history: Former smoker. Have you smoked in the past 12 months: No. If you are a former smoker, when did you quit?: 2017. Cigars Per Day: 0. Hx Chewing Tobacco Use: No. Initiated information on smoking cessation: No. - Substances abused. Alcohol. Substance route: Oral. Frequency: Daily. Amount used: 2 pints vodka. Age of first use: 23. Date of last use: 06/01/20 (midnight). Crack. Substance route: Smoking. Frequency: Daily. Amount used: $80. Age of first use: 23. Date of last use: 05/25/20 Medical History: Significant for hypertension, hypercholesterolemia, diabetes Psychiatric History: Patient known to facility. History remains consistent. Patient's first psychiatric contact was in his 20's at [facility] outpatient clinic due to mood instability. He was diagnosed with Bipolar disorder and prescribed psychotropic medications. He denies history of psychiatric hospitalizations, instead reports history of seeing various psychiatrist in an outpatient setting. He reports past history of being prescribed seroquel, depakote, and geodon. Reports past history of schizophrenia but states that his diagnoses was later revised to anxiety disorder + MDD. Stated to underwriter mortgage loan that he has not heard voices in over two years. Mr. Lorenzo continues to receive outpatient psychiatric care at [facility] and continues to take Remeron 45mg. Patient denies depressive symptoms, auditory/ visual hallucinations and paranoid ideation. Physical/Sexual Abuse/Trauma History: denies. Mental Status Exam - Mental Status Exam Alert and Oriented to: Time, Place, Person Cognitive Function: Good Patient Appearance: Well Groomed Mood: Hopeful Affect: Mood Congruent Patient Behavior: Cooperative Speech Pattern: Appropriate Voice Loudness: Mildly Soft/Quiet Thought Process: Goal Oriented Thought Disorder: Not Present Hallucinations: Denies Suicidal Ideation: Denies Homicidal Ideation: Denies Insight/Judgement: Poor Sleep: Poorly Appetite: Fair Muscle strength/Tone: Normal Gait/Station: Normal Psychiatric Findings - Problem List ([employer] 1, 2,3) (1) Cocaine use disorder Current Visit: Yes Status: Acute (2) Substance-induced sleep disorder Current Visit: Yes Status: Acute (3) Alcohol dependence with uncomplicated withdrawal Current Visit: Yes Status: Acute (4) History of schizoaffective disorder Current Visit: No Status: Chronic - Initial Treatment Plan Initial Treatment Plan: Psychoeducation provided. Detoxification in progress. Will order Remeron 45mg HS. Benefits and side effects discussed. Verbal consent given.
[2020-06-02] MEDS ORDERED: ATORVASTATIN CA 40 MG TABLET (FP) ONE (21:34)
[2020-06-02] MEDS ORDERED: ATORVASTATIN CA 80 MG TABLET (FP) PO SCH (22:00)
[2020-06-02] MEDS ORDERED: MIRTAZAPINE 15 MG TABLET (FP) PO SCH (22:00)
[2020-06-02] MEDS ORDERED: ATORVASTATIN CA 20 MG TABLET (FP) PO SCH (22:00)
[2020-06-02] MEDS ORDERED: SENNOSIDES 8.6MG TABLET (FP) PO SCH (22:00)
[2020-06-02] MEDS: MELATONIN 5 MG TABLETS PO SCH (22:54)
[2020-06-02] MEDS: THIAMINE HCL 100 MG TABLET (FP) PO SCH (22:55)
[2020-06-03] MEDS: DOCUSATE SODIUM 100 MG CAPSULE (FP) PO SCH (02:30)
[2020-06-03] MEDS ORDERED: chlordiazePOXIDE HCL 25 MG CAPSULE PO SCH (05:00)
[2020-06-03] MEDS: hydrOXYzine PAMOATE 25 MG CAPSULE (FP) PO SCH (06:04)
[2020-06-03 07:10] VITALS: BP 95/64; PULSE 78; TEMP 97.3
--- NOTE | 2020-06-03 13:06 | DS ---
[facility] Detox Discharge Summary Admission Date: 06/01/20 Discharge Date: 06/03/20 - History Present History: Alcohol Dependence, Cocaine Dependence Additional Comments: Pt declined to continue with detox despite all efforts to encourage pt to stay in treatment. Pt was seen by his counselor Ms. Krissy Kam and referral to [facility] aftercare given to pt for follow up care. Pt reports he has own primary care provider Dr. Yovanny Quinones in [place], [place] and will follow up for medical management. Pertinent Past History: HTN Type 2 DM Hypercholesterolemia Schizoaffective Disorder Chronic constipation - Physical Exam Results Vital Signs: Vital Signs Temperature 97.3 F L 06/03/20 07:00 Pulse Rate 78 06/03/20 07:00 Respiratory Rate 18 06/03/20 07:00 Blood Pressure 95/64 06/03/20 07:00 O2 Sat by Pulse Oximetry (%) 95 06/03/20 07:00 Alert o x 3, denies s/h/i nad oob ambulating with steady gait Active ROM all extremities Pertinent Admission Physical Exam Findings: Withdrawal sx Laboratory Tests 06/01/20 06/01/20 06/02/20 11:21 12:25 06:31 POC Glucometer 88 99 COVID-19 (QUAN) Not detected 06/02/20 06/03/20 17:02 06:03 POC Glucometer 144 148 COVID-19 (QUAN) - Treatment Hospital Course: Discharged Condition Good, Rehab Referral Accepted Patient has Accept[facility] [place] [facility] [place] [facility] - Medication Discharge Medications: Ambulatory Orders Aspirin [ASA -] 81 mg PO DAILY #30 tab.chew 09/03/17 Lisinopril [Zestril] 2.5 mg PO DAILY #30 tab 09/03/17 Atorvastatin Ca [Lipitor] 80 mg PO HS 03/01/18 metFORMIN XR [Glucophage Xr -] 750 mg PO BID 03/01/18 Docusate Sodium [Colace -] 100 mg PO BID PRN 04/26/18 Verapamil HCl [Verapamil ER] 180 mg PO DAILY 11/07/19 Mirtazapine [Remeron -] 45 mg PO HS 03/31/20 Multivitamins [Multivit (RH Formulary)] 1 tab PO DAILY 03/31/20 Sennosides [Senna -] 2 tab PO HS PRN 03/31/20 - Diagnosis (1) Cocaine use disorder Status: Acute (2) History of schizoaffective disorder Status: Chronic (3) Alcohol dependence with uncomplicated withdrawal Status: Acute (4) Hypercholesterolemia Status: Chronic (5) Diabetes mellitus type II, non insulin dependent Status: Chronic (6) Hypertension Status: Chronic Qualifiers: Hypertension type: essential hypertension Qualified Code(s): I10 - [facility] l (primary) hypertension (7) History of chronic constipation Status: Chronic - AMA Did Patient Leave Against Medical Advice: Yes
[2020-06-04] MEDS ORDERED: chlordiazePOXIDE HCL 10 MG CAPSULE PO PRN
[2020-06-04] MEDS ORDERED: chlordiazePOXIDE HCL 10 MG CAPSULE PO SCH (05:00)
[2020-06-05] MEDS ORDERED: chlordiazePOXIDE HCL 10 MG CAPSULE PO SCH (05:00)
[2020-06-06] MEDS ORDERED: chlordiazePOXIDE HCL 10 MG CAPSULE PO ONE (05:00)
== END 2020-06-03 09:43 | disposition left against medical advice (07) | DRG 894 ==
LOC: YASAS 09:05 → Y5N DETOX 11:08
PROVIDERS: ADMIT Allergy & Immunology; ATTEND Allergy & Immunology
PROC: HZ2ZZZZ Detoxification Services for Substance Abuse Treatment (ICD-10-PCS; principal; 2020-06-01)
DX: F10.230 Alcohol dependence with withdrawal, uncomplicated (principal); F19.282 Other psychoactive substance dependence with psychoactive substance-induced sleep disorder; F14.10 Cocaine abuse, uncomplicated; F19.24 Other psychoactive substance dependence with psychoactive substance-induced mood disorder; I10 Essential (primary) hypertension; E78.00 Pure hypercholesterolemia, unspecified; E11.9 Type 2 diabetes mellitus without complications; Z87.891 Personal history of nicotine dependence; Z79.84 Long term (current) use of oral hypoglycemic drugs
CPT/HCPCS: 82962; U0003

== ENCOUNTER 2020-09-02 10:51 | Inpatient (IN) | payer OTHER ==
[2020-09-02 12:25] VITALS: BMI 25.7
[2020-09-02] MEDS ORDERED: BISMUTH SUBSALICYLATE 524 MG/30 ML UD PO PRN (13:37)
[2020-09-02] MEDS ORDERED: MAGNESIUM CITRATE 300 ML BOTTLE PO PRN (13:37)
[2020-09-02] MEDS ORDERED: MAGNESIUM HYDROX 2400MG/30ML ORAL SUSPENSION 30 ML CUP PO PRN (13:37)
[2020-09-02] MEDS ORDERED: METHOCARBAMOL 500 MG TABLET PO PRN (13:37)
[2020-09-02] MEDS ORDERED: ONDANSETRON *ODT* 4 MG TABLET SL PRN (13:37)
[2020-09-02] MEDS ORDERED: IBUPROFEN 400 MG TABLET (FP) PO PRN (13:37)
[2020-09-02] MEDS ORDERED: MENTHOL/PHENOL 1 EACH UD MM PRN (13:37)
[2020-09-02] MEDS ORDERED: chlordiazePOXIDE HCL 25 MG CAPSULE PO PRN (13:37)
[2020-09-02] MEDS ORDERED: ACETAMINOPHEN 325 MG TABLET (FP) PO PRN ×2 (13:37)
[2020-09-02] MEDS ORDERED: MAG HYDROX/AL HYDROX/SIMETH 30 ML UNIT-DOSE CUP PO PRN (13:37)
[2020-09-02] MEDS: hydrOXYzine PAMOATE 25 MG CAPSULE (FP) PO SCH ×3 (15:03→23:32)
[2020-09-02 17:11] LABS: POTASSIUM 3.6 mmol/L (3.5-5.1)
[2020-09-02 17:12] LABS: ALBUMIN 4.3 g/dl (3.4-5.0); BASO % 0.6 % (0-2.0); BLOOD UREA NITROGEN 11.9 mg/dL (7-18); CALCIUM 9.8 mg/dL (8.5-10.1); EOS % 1.7 % (0-4.5); HEMATOCRIT 40.1 % (35.4-49); HEMOGLOBIN 13.3 GM/dL (11.7-16.9); LYMPH % 21.2 % (8-40); MCH 30.9 pg (25.7-33.7); MCHC 33.2 g/dl (32.0-35.9); MEAN CELL VOLUME 92.9 fl (80-96); MEAN PLT VOLUME 7.1 fl (7.5-11.1); MONO % 11.2 % (3.8-10.2); NEUT % 65.3 % (42.8-82.8); PLATELET COUNT 333 K/MM3 (134-434); RBC 4.31 M/mm3 (4.00-5.60); WHITE BLOOD COUNT 8.8 K/mm3 (4.0-10.0)
[2020-09-02 17:16] LABS: CREATININE 1.4 mg/dL (0.55-1.3)
[2020-09-02 17:18] LABS: BILIRUBIN,TOTAL 0.6 mg/dL (0.2-1)
[2020-09-02] MEDS: chlordiazePOXIDE HCL 25 MG CAPSULE PO SCH ×2 (18:15→23:32)
[2020-09-02] MEDS ORDERED: MIRTAZAPINE 15 MG TABLET (FP) PO SCH (22:00)
[2020-09-02] MEDS: MIRTAZAPINE 15 MG TABLET (FP) PO SCH (23:32)
[2020-09-02] MEDS: MELATONIN 5 MG TABLETS PO SCH (23:32)
[2020-09-02] MEDS: THIAMINE HCL 100 MG TABLET (FP) PO SCH (23:33)
[2020-09-03] MEDS: hydrOXYzine PAMOATE 25 MG CAPSULE (FP) PO SCH ×5 (07:49→22:36)
[2020-09-03] MEDS: chlordiazePOXIDE HCL 25 MG CAPSULE PO SCH ×4 (07:49→22:38)
[2020-09-03] MEDS: PRENATAL VITAMINS W/ FOLIC ACID TABLET (FP) PO SCH (10:24)
[2020-09-03] MEDS: ASPIRIN 81 MG CHEWABLE TABLETS PO SCH (10:28)
[2020-09-03] MEDS: MIRTAZAPINE 15 MG TABLET (FP) PO SCH (20:20)
[2020-09-03] MEDS: ATORVASTATIN CA 20 MG TABLET (FP) PO SCH (22:37)
[2020-09-03] MEDS: THIAMINE HCL 100 MG TABLET (FP) PO SCH (22:37)
[2020-09-03] MEDS: MELATONIN 5 MG TABLETS PO SCH (23:52)
[2020-09-04] MEDS: chlordiazePOXIDE HCL 25 MG CAPSULE PO SCH ×4 (06:38→22:39)
[2020-09-04] MEDS: hydrOXYzine PAMOATE 25 MG CAPSULE (FP) PO SCH ×5 (06:38→22:38)
[2020-09-04] MEDS: ASPIRIN 81 MG CHEWABLE TABLETS PO SCH (11:31)
[2020-09-04] MEDS: PRENATAL VITAMINS W/ FOLIC ACID TABLET (FP) PO SCH (11:31)
[2020-09-04] MEDS: MIRTAZAPINE 15 MG TABLET (FP) PO SCH (20:33)
[2020-09-04] MEDS: THIAMINE HCL 100 MG TABLET (FP) PO SCH (21:30)
[2020-09-04] MEDS: MELATONIN 5 MG TABLETS PO SCH (21:30)
[2020-09-04] MEDS: ATORVASTATIN CA 20 MG TABLET (FP) PO SCH (21:30)
[2020-09-05] MEDS ORDERED: chlordiazePOXIDE HCL 10 MG CAPSULE PO PRN
[2020-09-05] MEDS: chlordiazePOXIDE HCL 10 MG CAPSULE PO SCH ×4 (05:09→23:56)
[2020-09-05] MEDS: hydrOXYzine PAMOATE 25 MG CAPSULE (FP) PO SCH (05:09)
[2020-09-05] MEDS ORDERED: hydrOXYzine PAMOATE 25 MG CAPSULE (FP) PO PRN (08:39)
[2020-09-05] MEDS ORDERED: VERAPAMIL HCL 120 MG E.R. TABLET PO SCH (10:00)
[2020-09-05] MEDS: ASPIRIN 81 MG CHEWABLE TABLETS PO SCH (10:13)
[2020-09-05] MEDS: PRENATAL VITAMINS W/ FOLIC ACID TABLET (FP) PO SCH (10:14)
[2020-09-05] MEDS: LISINOPRIL 5 MG TABLET PO SCH (10:15)
[2020-09-05] MEDS ORDERED: VERAPAMIL HCL 120 MG E.R. TABLET PO ONE (14:59)
[2020-09-05] MEDS: MIRTAZAPINE 15 MG TABLET (FP) PO SCH (20:03)
[2020-09-05] MEDS: ATORVASTATIN CA 80 MG TABLET (FP) PO SCH (20:03)
[2020-09-05] MEDS: MELATONIN 5 MG TABLETS PO SCH (23:57)
[2020-09-05] MEDS: THIAMINE HCL 100 MG TABLET (FP) PO SCH (23:57)
[2020-09-06] MEDS: chlordiazePOXIDE HCL 10 MG CAPSULE PO SCH ×2 (05:22→17:20)
[2020-09-06] MEDS: PRENATAL VITAMINS W/ FOLIC ACID TABLET (FP) PO SCH (10:11)
[2020-09-06] MEDS: LISINOPRIL 5 MG TABLET PO SCH (10:11)
[2020-09-06] MEDS: ASPIRIN 81 MG CHEWABLE TABLETS PO SCH (10:11)
[2020-09-06] MEDS: VERAPAMIL HCL 120 MG E.R. TABLET PO SCH (10:11)
[2020-09-06] MEDS: MIRTAZAPINE 15 MG TABLET (FP) PO SCH (21:45)
[2020-09-06] MEDS: THIAMINE HCL 100 MG TABLET (FP) PO SCH (21:45)
[2020-09-06] MEDS: ATORVASTATIN CA 80 MG TABLET (FP) PO SCH (21:45)
[2020-09-06] MEDS: MELATONIN 5 MG TABLETS PO SCH (21:47)
[2020-09-07] MEDS ORDERED: chlordiazePOXIDE HCL 10 MG CAPSULE PO ONE (05:00)
[2020-09-07] MEDS ORDERED: MASKS NR ONE (06:22)
[2020-09-07] MEDS: ASPIRIN 81 MG CHEWABLE TABLETS PO SCH (10:01)
[2020-09-07] MEDS: VERAPAMIL HCL 120 MG E.R. TABLET PO SCH (10:01)
[2020-09-07] MEDS: PRENATAL VITAMINS W/ FOLIC ACID TABLET (FP) PO SCH (10:01)
[2020-09-07] MEDS: LISINOPRIL 5 MG TABLET PO SCH (10:03)
[2020-09-07] MEDS: IBUPROFEN 600 MG TABLET (FP) PO PRN ×2 (13:16→19:43)
[2020-09-07] MEDS ORDERED: ATORVASTATIN CA 40 MG TABLET (FP) ONE (19:39)
[2020-09-07] MEDS: MIRTAZAPINE 15 MG TABLET (FP) PO SCH (19:41)
[2020-09-07] MEDS: ATORVASTATIN CA 80 MG TABLET (FP) PO SCH (19:43)
[2020-09-07] MEDS: MELATONIN 5 MG TABLETS PO SCH (22:27)
[2020-09-07] MEDS: THIAMINE HCL 100 MG TABLET (FP) PO SCH (22:27)
[2020-09-08] MEDS: PRENATAL VITAMINS W/ FOLIC ACID TABLET (FP) PO SCH (09:35)
[2020-09-08] MEDS: ASPIRIN 81 MG CHEWABLE TABLETS PO SCH (09:36)
[2020-09-08] MEDS: LISINOPRIL 5 MG TABLET PO SCH (09:36)
[2020-09-08] MEDS: VERAPAMIL HCL 120 MG E.R. TABLET PO SCH (10:43)
[2020-09-08] MEDS: IBUPROFEN 600 MG TABLET (FP) PO PRN ×2 (11:02→17:51)
[2020-09-08] MEDS: MIRTAZAPINE 15 MG TABLET (FP) PO SCH (20:04)
[2020-09-08] MEDS: ATORVASTATIN CA 80 MG TABLET (FP) PO SCH (20:05)
[2020-09-08] MEDS: THIAMINE HCL 100 MG TABLET (FP) PO SCH (21:57)
[2020-09-08] MEDS: MELATONIN 5 MG TABLETS PO SCH (21:57)
[2020-09-09] MEDS: IBUPROFEN 600 MG TABLET (FP) PO PRN ×2 (06:49→17:06)
[2020-09-09] MEDS: PRENATAL VITAMINS W/ FOLIC ACID TABLET (FP) PO SCH (09:35)
[2020-09-09] MEDS: ASPIRIN 81 MG CHEWABLE TABLETS PO SCH (09:35)
[2020-09-09] MEDS: VERAPAMIL HCL 120 MG E.R. TABLET PO SCH (09:35)
[2020-09-09] MEDS: LISINOPRIL 5 MG TABLET PO SCH (09:35)
[2020-09-09] MEDS: ATORVASTATIN CA 80 MG TABLET (FP) PO SCH (20:41)
[2020-09-09] MEDS: MIRTAZAPINE 15 MG TABLET (FP) PO SCH (20:41)
[2020-09-09] MEDS: MELATONIN 5 MG TABLETS PO SCH (21:50)
[2020-09-09] MEDS: THIAMINE HCL 100 MG TABLET (FP) PO SCH (21:50)
[2020-09-10] MEDS: IBUPROFEN 600 MG TABLET (FP) PO PRN ×2 (06:17→16:50)
[2020-09-10] MEDS: PRENATAL VITAMINS W/ FOLIC ACID TABLET (FP) PO SCH (09:31)
[2020-09-10] MEDS: ASPIRIN 81 MG CHEWABLE TABLETS PO SCH (09:31)
[2020-09-10] MEDS: LISINOPRIL 5 MG TABLET PO SCH (09:31)
[2020-09-10] MEDS: VERAPAMIL HCL 120 MG E.R. TABLET PO SCH (09:31)
[2020-09-10] MEDS ORDERED: ATORVASTATIN CA 40 MG TABLET (FP) ONE (20:12)
[2020-09-10] MEDS: MIRTAZAPINE 15 MG TABLET (FP) PO SCH (21:00)
[2020-09-10] MEDS: ATORVASTATIN CA 80 MG TABLET (FP) PO SCH (21:00)
[2020-09-10] MEDS: MELATONIN 5 MG TABLETS PO SCH (21:18)
[2020-09-10] MEDS: THIAMINE HCL 100 MG TABLET (FP) PO SCH (21:19)
[2020-09-11] MEDS: IBUPROFEN 600 MG TABLET (FP) PO PRN ×2 (06:30→16:41)
[2020-09-11] MEDS: PRENATAL VITAMINS W/ FOLIC ACID TABLET (FP) PO SCH (09:32)
[2020-09-11] MEDS: ASPIRIN 81 MG CHEWABLE TABLETS PO SCH (09:32)
[2020-09-11] MEDS: VERAPAMIL HCL 120 MG E.R. TABLET PO SCH (09:32)
[2020-09-11] MEDS: LISINOPRIL 5 MG TABLET PO SCH (09:33)
[2020-09-11] MEDS ORDERED: ATORVASTATIN CA 40 MG TABLET (FP) ONE (20:13)
[2020-09-11] MEDS: MIRTAZAPINE 15 MG TABLET (FP) PO SCH (21:08)
[2020-09-11] MEDS: MELATONIN 5 MG TABLETS PO SCH (21:08)
[2020-09-11] MEDS: THIAMINE HCL 100 MG TABLET (FP) PO SCH (21:08)
[2020-09-11] MEDS: ATORVASTATIN CA 80 MG TABLET (FP) PO SCH (21:08)
[2020-09-12] MEDS: IBUPROFEN 600 MG TABLET (FP) PO PRN ×2 (06:21→16:45)
[2020-09-12] MEDS ORDERED: MASKS NR ONE (06:43)
[2020-09-12] MEDS: LISINOPRIL 5 MG TABLET PO SCH (09:34)
[2020-09-12] MEDS: ASPIRIN 81 MG CHEWABLE TABLETS PO SCH (09:34)
[2020-09-12] MEDS: VERAPAMIL HCL 120 MG E.R. TABLET PO SCH (09:35)
[2020-09-12] MEDS: PRENATAL VITAMINS W/ FOLIC ACID TABLET (FP) PO SCH (09:35)
[2020-09-12] MEDS ORDERED: ATORVASTATIN CA 40 MG TABLET (FP) ONE (19:12)
[2020-09-12] MEDS: METHOCARBAMOL 500 MG TABLET PO PRN (20:14)
[2020-09-12] MEDS: ATORVASTATIN CA 80 MG TABLET (FP) PO SCH (20:14)
[2020-09-12] MEDS: MIRTAZAPINE 15 MG TABLET (FP) PO SCH (20:14)
[2020-09-12] MEDS: MELATONIN 5 MG TABLETS PO SCH (21:55)
[2020-09-12] MEDS: THIAMINE HCL 100 MG TABLET (FP) PO SCH (21:56)
[2020-09-13] MEDS: METHOCARBAMOL 500 MG TABLET PO PRN ×2 (06:11→17:56)
[2020-09-13] MEDS: IBUPROFEN 600 MG TABLET (FP) PO PRN ×2 (06:11→17:56)
[2020-09-13] MEDS: PRENATAL VITAMINS W/ FOLIC ACID TABLET (FP) PO SCH (09:23)
[2020-09-13] MEDS: ASPIRIN 81 MG CHEWABLE TABLETS PO SCH (09:23)
[2020-09-13] MEDS: CHOLECALCIFEROL (VIT D3) 400 UNIT (10 MCG) TABLET PO SCH (09:23)
[2020-09-13] MEDS: VERAPAMIL HCL 120 MG E.R. TABLET PO SCH (09:23)
[2020-09-13] MEDS: LISINOPRIL 5 MG TABLET PO SCH (09:23)
[2020-09-13] MEDS ORDERED: ATORVASTATIN CA 40 MG TABLET (FP) ONE (20:03)
[2020-09-13] MEDS: ATORVASTATIN CA 80 MG TABLET (FP) PO SCH (20:11)
[2020-09-13] MEDS: MIRTAZAPINE 15 MG TABLET (FP) PO SCH (20:11)
[2020-09-13] MEDS: MELATONIN 5 MG TABLETS PO SCH (21:54)
[2020-09-13] MEDS: THIAMINE HCL 100 MG TABLET (FP) PO SCH (21:54)
[2020-09-14] MEDS: METHOCARBAMOL 500 MG TABLET PO PRN ×2 (06:23→16:44)
[2020-09-14] MEDS: IBUPROFEN 600 MG TABLET (FP) PO PRN ×2 (06:24→16:44)
[2020-09-14] MEDS: LISINOPRIL 5 MG TABLET PO SCH (09:25)
[2020-09-14] MEDS: PRENATAL VITAMINS W/ FOLIC ACID TABLET (FP) PO SCH (09:25)
[2020-09-14] MEDS: VERAPAMIL HCL 120 MG E.R. TABLET PO SCH (09:25)
[2020-09-14] MEDS: ASPIRIN 81 MG CHEWABLE TABLETS PO SCH (09:25)
[2020-09-14] MEDS: CHOLECALCIFEROL (VIT D3) 400 UNIT (10 MCG) TABLET PO SCH (09:25)
[2020-09-14] MEDS: MIRTAZAPINE 15 MG TABLET (FP) PO SCH (19:58)
[2020-09-14] MEDS: ATORVASTATIN CA 80 MG TABLET (FP) PO SCH (19:58)
[2020-09-14] MEDS: THIAMINE HCL 100 MG TABLET (FP) PO SCH (21:47)
[2020-09-14] MEDS: MELATONIN 5 MG TABLETS PO SCH (21:47)
[2020-09-15] MEDS: METHOCARBAMOL 500 MG TABLET PO PRN ×2 (06:04→20:10)
[2020-09-15] MEDS: IBUPROFEN 600 MG TABLET (FP) PO PRN (06:04)
[2020-09-15] MEDS: CHOLECALCIFEROL (VIT D3) 400 UNIT (10 MCG) TABLET PO SCH (09:36)
[2020-09-15] MEDS: VERAPAMIL HCL 120 MG E.R. TABLET PO SCH (09:36)
[2020-09-15] MEDS: ASPIRIN 81 MG CHEWABLE TABLETS PO SCH (09:36)
[2020-09-15] MEDS: LISINOPRIL 5 MG TABLET PO SCH (09:36)
[2020-09-15] MEDS: PRENATAL VITAMINS W/ FOLIC ACID TABLET (FP) PO SCH (09:37)
[2020-09-15] MEDS: ATORVASTATIN CA 80 MG TABLET (FP) PO SCH (20:10)
[2020-09-15] MEDS: MIRTAZAPINE 15 MG TABLET (FP) PO SCH (20:11)
[2020-09-15] MEDS: THIAMINE HCL 100 MG TABLET (FP) PO SCH (22:10)
[2020-09-15] MEDS: MELATONIN 5 MG TABLETS PO SCH (22:10)
[2020-09-16] MEDS: METHOCARBAMOL 500 MG TABLET PO PRN ×2 (06:06→21:16)
[2020-09-16] MEDS: IBUPROFEN 600 MG TABLET (FP) PO PRN ×2 (06:07→21:15)
[2020-09-16] MEDS: LISINOPRIL 5 MG TABLET PO SCH (09:32)
[2020-09-16] MEDS: CHOLECALCIFEROL (VIT D3) 400 UNIT (10 MCG) TABLET PO SCH (09:32)
[2020-09-16] MEDS: ASPIRIN 81 MG CHEWABLE TABLETS PO SCH (09:32)
[2020-09-16] MEDS: PRENATAL VITAMINS W/ FOLIC ACID TABLET (FP) PO SCH (09:32)
[2020-09-16] MEDS: VERAPAMIL HCL 120 MG E.R. TABLET PO SCH (09:32)
[2020-09-16] MEDS: METHYL SALICYLATE/MENTHOL OINT 30 GM TUBE TP SCH ×2 (14:29→22:13)
[2020-09-16] MEDS ORDERED: ATORVASTATIN CA 40 MG TABLET (FP) ONE (19:39)
[2020-09-16] MEDS: THIAMINE HCL 100 MG TABLET (FP) PO SCH (21:11)
[2020-09-16] MEDS: MELATONIN 5 MG TABLETS PO SCH (21:11)
[2020-09-16] MEDS: MIRTAZAPINE 15 MG TABLET (FP) PO SCH (21:11)
[2020-09-16] MEDS: ATORVASTATIN CA 80 MG TABLET (FP) PO SCH (21:12)
[2020-09-17] MEDS: IBUPROFEN 600 MG TABLET (FP) PO PRN ×2 (06:11→20:15)
[2020-09-17] MEDS: METHOCARBAMOL 500 MG TABLET PO PRN ×2 (06:12→20:16)
[2020-09-17] MEDS: ASPIRIN 81 MG CHEWABLE TABLETS PO SCH (09:25)
[2020-09-17] MEDS: LISINOPRIL 5 MG TABLET PO SCH (09:25)
[2020-09-17] MEDS: CHOLECALCIFEROL (VIT D3) 400 UNIT (10 MCG) TABLET PO SCH (09:25)
[2020-09-17] MEDS: PRENATAL VITAMINS W/ FOLIC ACID TABLET (FP) PO SCH (09:27)
[2020-09-17] MEDS: VERAPAMIL HCL 120 MG E.R. TABLET PO SCH (09:27)
[2020-09-17] MEDS: METHYL SALICYLATE/MENTHOL OINT 30 GM TUBE TP SCH ×2 (10:12→21:45)
[2020-09-17] MEDS: ATORVASTATIN CA 80 MG TABLET (FP) PO SCH (20:15)
[2020-09-17] MEDS: MIRTAZAPINE 15 MG TABLET (FP) PO SCH (20:15)
[2020-09-17] MEDS: THIAMINE HCL 100 MG TABLET (FP) PO SCH (21:45)
[2020-09-17] MEDS: MELATONIN 5 MG TABLETS PO SCH (21:45)
[2020-09-18] MEDS: IBUPROFEN 600 MG TABLET (FP) PO PRN (06:16)
[2020-09-18] MEDS: METHOCARBAMOL 500 MG TABLET PO PRN ×2 (06:17→20:07)
[2020-09-18] MEDS: PRENATAL VITAMINS W/ FOLIC ACID TABLET (FP) PO SCH (09:26)
[2020-09-18] MEDS: ASPIRIN 81 MG CHEWABLE TABLETS PO SCH (09:26)
[2020-09-18] MEDS: LISINOPRIL 5 MG TABLET PO SCH (09:27)
[2020-09-18] MEDS: METHYL SALICYLATE/MENTHOL OINT 30 GM TUBE TP SCH ×2 (09:27→21:24)
[2020-09-18] MEDS: VERAPAMIL HCL 120 MG E.R. TABLET PO SCH (09:27)
[2020-09-18] MEDS: CHOLECALCIFEROL (VIT D3) 400 UNIT (10 MCG) TABLET PO SCH (10:20)
[2020-09-18] MEDS: MIRTAZAPINE 15 MG TABLET (FP) PO SCH (20:08)
[2020-09-18] MEDS: ATORVASTATIN CA 80 MG TABLET (FP) PO SCH (20:08)
[2020-09-18] MEDS: THIAMINE HCL 100 MG TABLET (FP) PO SCH (21:24)
[2020-09-18] MEDS: MELATONIN 5 MG TABLETS PO SCH (21:24)
[2020-09-19] MEDS: IBUPROFEN 600 MG TABLET (FP) PO PRN (06:12)
[2020-09-19] MEDS: METHOCARBAMOL 500 MG TABLET PO PRN (06:12)
[2020-09-19 06:41] VITALS: BP 111/80; PULSE 59; TEMP 98.2
[2020-09-19] MEDS: LISINOPRIL 5 MG TABLET PO SCH (09:37)
[2020-09-19] MEDS: VERAPAMIL HCL 120 MG E.R. TABLET PO SCH (09:38)
[2020-09-19] MEDS: ASPIRIN 81 MG CHEWABLE TABLETS PO SCH (09:38)
[2020-09-19] MEDS: CHOLECALCIFEROL (VIT D3) 400 UNIT (10 MCG) TABLET PO SCH (09:41)
[2020-09-19] MEDS: METHYL SALICYLATE/MENTHOL OINT 30 GM TUBE TP SCH (09:42)
[2020-09-19] MEDS: PRENATAL VITAMINS W/ FOLIC ACID TABLET (FP) PO SCH (09:42)
== END 2020-09-19 10:45 | disposition home or self-care (01) | DRG 895 ==
LOC: YASAS 10:51 → Y6N 13:26 → Y5N 09-07 12:04
PROVIDERS: ADMIT Allergy & Immunology; ATTEND Allergy & Immunology
PROC: HZ2ZZZZ Detoxification Services for Substance Abuse Treatment (ICD-10-PCS; 2020-09-02)
PROC: HZ42ZZZ Group Counseling for Substance Abuse Treatment, Cognitive-Behavioral (ICD-10-PCS; principal; 2020-09-07)
DX: F10.20 Alcohol dependence, uncomplicated (principal); F14.20 Cocaine dependence, uncomplicated; N17.9 Acute kidney failure, unspecified; F19.282 Other psychoactive substance dependence with psychoactive substance-induced sleep disorder; F17.211 Nicotine dependence, cigarettes, in remission; F19.24 Other psychoactive substance dependence with psychoactive substance-induced mood disorder; F20.9 Schizophrenia, unspecified; I25.10 Atherosclerotic heart disease of native coronary artery without angina pectoris; I10 Essential (primary) hypertension; E78.5 Hyperlipidemia, unspecified; E11.65 Type 2 diabetes mellitus with hyperglycemia; Z79.84 Long term (current) use of oral hypoglycemic drugs; R76.11 Nonspecific reaction to tuberculin skin test without active tuberculosis; Z96.0 Presence of urogenital implants; W19.XXXA Unspecified fall, initial encounter; Y93.89 Activity, other specified; Y92.230 Patient room in hospital as the place of occurrence of the external cause; Y99.9 Unspecified external cause status
CPT/HCPCS: 36415; 80053; 82962; 83036; 85025; 86780; 93005; 93010; C9803; U0003

== ENCOUNTER 2021-03-08 09:06 | Inpatient (IN) | payer OTHER ==
[2021-03-08 09:34] VITALS: BMI 27.5
[2021-03-08] MEDS ORDERED: LOPERAMIDE HCL 2 MG CAPSULE PO PRN (14:43)
[2021-03-08] MEDS ORDERED: ACETAMINOPHEN 325 MG TABLET (FP) PO PRN (14:43)
[2021-03-08] MEDS ORDERED: IBUPROFEN 400 MG TABLET (FP) PO PRN (14:43)
[2021-03-08] MEDS ORDERED: guaiFENesin 200 MG/10 ML 10 ML UNIT-DOSE CUPS PO PRN (14:43)
[2021-03-08] MEDS ORDERED: P-EPHED 60MG/TRIPROLIDI 2.5MG TABLET PO PRN (14:43)
[2021-03-08] MEDS ORDERED: MAGNESIUM CITRATE 300 ML BOTTLE PO PRN (14:43)
[2021-03-08] MEDS ORDERED: MAG HYDROX/AL HYDROX/SIMETH 30 ML UNIT-DOSE CUP PO PRN (14:43)
[2021-03-08 17:04] LABS: HEMATOCRIT 39.7 % (35.4-49); HEMOGLOBIN 13.4 GM/dL (11.7-16.9); MCH 31.9 pg (25.7-33.7); MCHC 33.8 g/dl (32.0-35.9); MEAN CELL VOLUME 94.4 fl (80-96); MEAN PLT VOLUME 6.9 fl (7.5-11.1); PLATELET COUNT 300 K/MM3 (134-434); RDW 13.9 % (11.9-15.9); WHITE BLOOD COUNT 5.6 K/mm3 (4.0-10.0)
[2021-03-08 17:07] LABS: CALCIUM 8.8 mg/dL (8.5-10.1)
[2021-03-08 17:08] LABS: ALBUMIN 3.9 g/dl (3.4-5.0); BLOOD UREA NITROGEN 11.3 mg/dL (7-18)
[2021-03-08 17:12] LABS: BILIRUBIN,TOTAL 0.4 mg/dL (0.2-1); TOT PROT 7.6 g/dl (6.4-8.2)
[2021-03-08] MEDS: hydrOXYzine PAMOATE 25 MG CAPSULE (FP) PO SCH ×2 (18:30→21:40)
[2021-03-08 18:42] LABS: PH,URINE 6.5 (5.0-8.0); URINE APPEARANCE CLEAR; URINE BILIRUBIN NEGATIVE (NEGATIVE); URINE COLOR YELLOW; URINE GLUCOSE (UA) NEGATIVE (NEGATIVE); URINE KETONE NEGATIVE (NEGATIVE); URINE LEUK ESTERASE NEGATIVE (NEGATIVE); URINE NITRITE NEGATIVE (NEGATIVE); URINE PROTEIN NEGATIVE (NEGATIVE)
[2021-03-08] MEDS ORDERED: MASKS NR ONE (19:39)
[2021-03-08] MEDS: MELATONIN 5 MG TABLETS PO SCH (21:40)
[2021-03-08] MEDS: THIAMINE HCL 100 MG TABLET (FP) PO SCH (21:40)
[2021-03-08] MEDS: ATORVASTATIN CA 80 MG TABLET (FP) PO SCH (21:40)
[2021-03-09] MEDS: hydrOXYzine PAMOATE 25 MG CAPSULE (FP) PO SCH ×5 (06:22→21:37)
[2021-03-09] MEDS: PRENATAL VITAMINS W/ FOLIC ACID TABLET (FP) PO SCH (10:11)
[2021-03-09] MEDS: VERAPAMIL HCL 120 MG E.R. TABLET PO SCH (10:11)
[2021-03-09] MEDS: ASPIRIN 81 MG CHEWABLE TABLETS PO SCH (10:11)
[2021-03-09] MEDS: LISINOPRIL 5 MG TABLET PO SCH (10:12)
[2021-03-09] MEDS: CHOLECALCIFEROL (VIT D3) 1,000 UNIT (25 MCG) TABLET PO SCH (11:29)
[2021-03-09] MEDS ORDERED: ATORVASTATIN CA 40 MG TABLET (FP) ONE (19:23)
[2021-03-09] MEDS: ATORVASTATIN CA 80 MG TABLET (FP) PO SCH (21:37)
[2021-03-09] MEDS: THIAMINE HCL 100 MG TABLET (FP) PO SCH (21:37)
[2021-03-09] MEDS: MELATONIN 5 MG TABLETS PO SCH (21:37)
[2021-03-09] MEDS: MIRTAZAPINE 15 MG TABLET (FP) PO SCH (21:37)
[2021-03-10] MEDS: hydrOXYzine PAMOATE 25 MG CAPSULE (FP) PO SCH ×5 (06:38→21:22)
[2021-03-10] MEDS: LISINOPRIL 5 MG TABLET PO SCH (10:40)
[2021-03-10] MEDS: ASPIRIN 81 MG CHEWABLE TABLETS PO SCH (10:41)
[2021-03-10] MEDS: PRENATAL VITAMINS W/ FOLIC ACID TABLET (FP) PO SCH (10:41)
[2021-03-10] MEDS: VERAPAMIL HCL 120 MG E.R. TABLET PO SCH ×2 (10:41→10:44)
[2021-03-10] MEDS: CHOLECALCIFEROL (VIT D3) 1,000 UNIT (25 MCG) TABLET PO SCH (10:41)
[2021-03-10] MEDS: DOCUSATE SODIUM 100 MG CAPSULE (FP) PO PRN (16:00)
[2021-03-10] MEDS ORDERED: ATORVASTATIN CA 40 MG TABLET (FP) ONE (18:54)
[2021-03-10] MEDS: ATORVASTATIN CA 80 MG TABLET (FP) PO SCH (21:21)
[2021-03-10] MEDS: MIRTAZAPINE 15 MG TABLET (FP) PO SCH (21:21)
[2021-03-10] MEDS: MELATONIN 5 MG TABLETS PO SCH (21:21)
[2021-03-10] MEDS: THIAMINE HCL 100 MG TABLET (FP) PO SCH (21:21)
[2021-03-11] MEDS: DOCUSATE SODIUM 100 MG CAPSULE (FP) PO PRN ×3 (06:37→21:34)
[2021-03-11] MEDS: hydrOXYzine PAMOATE 25 MG CAPSULE (FP) PO SCH ×5 (06:37→21:33)
[2021-03-11] MEDS: PRENATAL VITAMINS W/ FOLIC ACID TABLET (FP) PO SCH (10:11)
[2021-03-11] MEDS: CHOLECALCIFEROL (VIT D3) 1,000 UNIT (25 MCG) TABLET PO SCH (10:12)
[2021-03-11] MEDS: ASPIRIN 81 MG CHEWABLE TABLETS PO SCH (10:12)
[2021-03-11] MEDS: VERAPAMIL HCL 120 MG E.R. TABLET PO SCH (10:12)
[2021-03-11] MEDS: MAGNESIUM HYDROX 2400MG/30ML ORAL SUSPENSION 30 ML CUP PO PRN (10:14)
[2021-03-11] MEDS: LISINOPRIL 5 MG TABLET PO SCH (10:15)
[2021-03-11] MEDS ORDERED: ATORVASTATIN CA 40 MG TABLET (FP) ONE (20:11)
[2021-03-11] MEDS: ATORVASTATIN CA 80 MG TABLET (FP) PO SCH (21:32)
[2021-03-11] MEDS: MIRTAZAPINE 15 MG TABLET (FP) PO SCH (21:32)
[2021-03-11] MEDS: MELATONIN 5 MG TABLETS PO SCH (21:32)
[2021-03-11] MEDS: THIAMINE HCL 100 MG TABLET (FP) PO SCH (21:33)
[2021-03-12] MEDS: hydrOXYzine PAMOATE 25 MG CAPSULE (FP) PO SCH ×5 (06:24→21:25)
[2021-03-12] MEDS: PRENATAL VITAMINS W/ FOLIC ACID TABLET (FP) PO SCH (09:59)
[2021-03-12] MEDS: DOCUSATE SODIUM 100 MG CAPSULE (FP) PO PRN (09:59)
[2021-03-12] MEDS: CHOLECALCIFEROL (VIT D3) 1,000 UNIT (25 MCG) TABLET PO SCH (10:00)
[2021-03-12] MEDS: LISINOPRIL 5 MG TABLET PO SCH (10:00)
[2021-03-12] MEDS: ASPIRIN 81 MG CHEWABLE TABLETS PO SCH (10:00)
[2021-03-12] MEDS: VERAPAMIL HCL 120 MG E.R. TABLET PO SCH (10:00)
[2021-03-12 14:11] LABS: SARS-CoV-2 NAA Not Detected (Not Detected)
[2021-03-12] MEDS ORDERED: ATORVASTATIN CA 40 MG TABLET (FP) ONE (18:44)
[2021-03-12] MEDS: MELATONIN 5 MG TABLETS PO SCH (21:25)
[2021-03-12] MEDS: ATORVASTATIN CA 80 MG TABLET (FP) PO SCH (21:25)
[2021-03-12] MEDS: THIAMINE HCL 100 MG TABLET (FP) PO SCH (21:25)
[2021-03-12] MEDS: MIRTAZAPINE 15 MG TABLET (FP) PO SCH (21:25)
[2021-03-13] MEDS: hydrOXYzine PAMOATE 25 MG CAPSULE (FP) PO SCH ×5 (06:55→22:50)
[2021-03-13] MEDS: VERAPAMIL HCL 120 MG E.R. TABLET PO SCH (10:08)
[2021-03-13] MEDS: PRENATAL VITAMINS W/ FOLIC ACID TABLET (FP) PO SCH (10:08)
[2021-03-13] MEDS: ASPIRIN 81 MG CHEWABLE TABLETS PO SCH (10:08)
[2021-03-13] MEDS: CHOLECALCIFEROL (VIT D3) 1,000 UNIT (25 MCG) TABLET PO SCH (10:09)
[2021-03-13] MEDS: LISINOPRIL 5 MG TABLET PO SCH (10:09)
[2021-03-13] MEDS ORDERED: ATORVASTATIN CA 40 MG TABLET (FP) ONE (18:51)
[2021-03-13] MEDS: MIRTAZAPINE 15 MG TABLET (FP) PO SCH (22:50)
[2021-03-13] MEDS: THIAMINE HCL 100 MG TABLET (FP) PO SCH (22:50)
[2021-03-13] MEDS: ATORVASTATIN CA 80 MG TABLET (FP) PO SCH (22:50)
[2021-03-13] MEDS: MELATONIN 5 MG TABLETS PO SCH (23:17)
[2021-03-14] MEDS: hydrOXYzine PAMOATE 25 MG CAPSULE (FP) PO SCH ×6 (06:13→21:20)
[2021-03-14] MEDS: MAGNESIUM HYDROX 2400MG/30ML ORAL SUSPENSION 30 ML CUP PO PRN (06:16)
[2021-03-14] MEDS: VERAPAMIL HCL 120 MG E.R. TABLET PO SCH (10:12)
[2021-03-14] MEDS: PRENATAL VITAMINS W/ FOLIC ACID TABLET (FP) PO SCH (10:12)
[2021-03-14] MEDS: ASPIRIN 81 MG CHEWABLE TABLETS PO SCH (10:12)
[2021-03-14] MEDS: CHOLECALCIFEROL (VIT D3) 1,000 UNIT (25 MCG) TABLET PO SCH (10:12)
[2021-03-14] MEDS: LISINOPRIL 5 MG TABLET PO SCH (10:12)
[2021-03-14] MEDS: THIAMINE HCL 100 MG TABLET (FP) PO SCH (21:18)
[2021-03-14] MEDS ORDERED: ATORVASTATIN CA 40 MG TABLET (FP) ONE (21:19)
[2021-03-14] MEDS: ATORVASTATIN CA 80 MG TABLET (FP) PO SCH (21:19)
[2021-03-14] MEDS: MELATONIN 5 MG TABLETS PO SCH (21:19)
[2021-03-14] MEDS: MIRTAZAPINE 15 MG TABLET (FP) PO SCH (21:19)
[2021-03-15] MEDS: hydrOXYzine PAMOATE 25 MG CAPSULE (FP) PO SCH (06:03)
[2021-03-15] MEDS ORDERED: hydrOXYzine PAMOATE 25 MG CAPSULE (FP) PO PRN (08:53)
[2021-03-15] MEDS: PRENATAL VITAMINS W/ FOLIC ACID TABLET (FP) PO SCH (10:21)
[2021-03-15] MEDS: CHOLECALCIFEROL (VIT D3) 1,000 UNIT (25 MCG) TABLET PO SCH (10:21)
[2021-03-15] MEDS: LISINOPRIL 5 MG TABLET PO SCH (10:22)
[2021-03-15] MEDS: ASPIRIN 81 MG CHEWABLE TABLETS PO SCH (10:22)
[2021-03-15] MEDS: VERAPAMIL HCL 120 MG E.R. TABLET PO SCH (10:22)
[2021-03-15] MEDS: MAGNESIUM HYDROX 2400MG/30ML ORAL SUSPENSION 30 ML CUP PO PRN (10:25)
[2021-03-15] MEDS ORDERED: PT OWN MED DRAWER 7, Y5N ONE (10:57)
[2021-03-15] MEDS ORDERED: ATORVASTATIN CA 40 MG TABLET (FP) ONE (18:42)
[2021-03-15] MEDS: THIAMINE HCL 100 MG TABLET (FP) PO SCH (21:08)
[2021-03-15] MEDS: MELATONIN 5 MG TABLETS PO SCH (21:08)
[2021-03-15] MEDS: ATORVASTATIN CA 80 MG TABLET (FP) PO SCH (21:09)
[2021-03-15] MEDS: MIRTAZAPINE 15 MG TABLET (FP) PO SCH (21:09)
[2021-03-16] MEDS: ASPIRIN 81 MG CHEWABLE TABLETS PO SCH (10:14)
[2021-03-16] MEDS: MAGNESIUM HYDROX 2400MG/30ML ORAL SUSPENSION 30 ML CUP PO PRN (10:14)
[2021-03-16] MEDS: LISINOPRIL 5 MG TABLET PO SCH (10:14)
[2021-03-16] MEDS: VERAPAMIL HCL 120 MG E.R. TABLET PO SCH (10:14)
[2021-03-16] MEDS: CHOLECALCIFEROL (VIT D3) 1,000 UNIT (25 MCG) TABLET PO SCH (10:14)
[2021-03-16] MEDS: PRENATAL VITAMINS W/ FOLIC ACID TABLET (FP) PO SCH (10:14)
[2021-03-16] MEDS ORDERED: ATORVASTATIN CA 40 MG TABLET (FP) ONE (20:36)
[2021-03-16] MEDS: THIAMINE HCL 100 MG TABLET (FP) PO SCH (22:13)
[2021-03-16] MEDS: MELATONIN 5 MG TABLETS PO SCH (22:13)
[2021-03-16] MEDS: MIRTAZAPINE 15 MG TABLET (FP) PO SCH (22:14)
[2021-03-16] MEDS: ATORVASTATIN CA 80 MG TABLET (FP) PO SCH (22:14)
[2021-03-17] MEDS: ASPIRIN 81 MG CHEWABLE TABLETS PO SCH (09:54)
[2021-03-17] MEDS: CHOLECALCIFEROL (VIT D3) 1,000 UNIT (25 MCG) TABLET PO SCH (09:55)
[2021-03-17] MEDS: VERAPAMIL HCL 120 MG E.R. TABLET PO SCH (09:56)
[2021-03-17] MEDS: PRENATAL VITAMINS W/ FOLIC ACID TABLET (FP) PO SCH (09:57)
[2021-03-17] MEDS: LISINOPRIL 5 MG TABLET PO SCH (09:57)
[2021-03-17] MEDS ORDERED: ATORVASTATIN CA 40 MG TABLET (FP) ONE (18:54)
[2021-03-17] MEDS: MIRTAZAPINE 15 MG TABLET (FP) PO SCH (21:20)
[2021-03-17] MEDS: ATORVASTATIN CA 80 MG TABLET (FP) PO SCH (21:20)
[2021-03-17] MEDS: THIAMINE HCL 100 MG TABLET (FP) PO SCH (21:21)
[2021-03-17] MEDS: MELATONIN 5 MG TABLETS PO SCH (21:21)
[2021-03-18] MEDS: MAGNESIUM HYDROX 2400MG/30ML ORAL SUSPENSION 30 ML CUP PO PRN (06:25)
[2021-03-18] MEDS: CHOLECALCIFEROL (VIT D3) 1,000 UNIT (25 MCG) TABLET PO SCH (09:19)
[2021-03-18] MEDS: LISINOPRIL 5 MG TABLET PO SCH (09:19)
[2021-03-18] MEDS: PRENATAL VITAMINS W/ FOLIC ACID TABLET (FP) PO SCH (09:19)
[2021-03-18] MEDS: VERAPAMIL HCL 120 MG E.R. TABLET PO SCH (09:19)
[2021-03-18] MEDS: ASPIRIN 81 MG CHEWABLE TABLETS PO SCH (09:19)
[2021-03-18] MEDS ORDERED: ATORVASTATIN CA 40 MG TABLET (FP) ONE (19:32)
[2021-03-18] MEDS: MIRTAZAPINE 15 MG TABLET (FP) PO SCH (21:19)
[2021-03-18] MEDS: MELATONIN 5 MG TABLETS PO SCH (21:19)
[2021-03-18] MEDS: THIAMINE HCL 100 MG TABLET (FP) PO SCH (21:19)
[2021-03-18] MEDS: ATORVASTATIN CA 80 MG TABLET (FP) PO SCH (21:19)
[2021-03-19] MEDS: CHOLECALCIFEROL (VIT D3) 1,000 UNIT (25 MCG) TABLET PO SCH (09:39)
[2021-03-19] MEDS: VERAPAMIL HCL 120 MG E.R. TABLET PO SCH (09:39)
[2021-03-19] MEDS: PRENATAL VITAMINS W/ FOLIC ACID TABLET (FP) PO SCH (09:39)
[2021-03-19] MEDS: LISINOPRIL 5 MG TABLET PO SCH (09:39)
[2021-03-19] MEDS: ASPIRIN 81 MG CHEWABLE TABLETS PO SCH (09:39)
[2021-03-19] MEDS: MAGNESIUM HYDROX 2400MG/30ML ORAL SUSPENSION 30 ML CUP PO PRN (10:15)
[2021-03-19] MEDS ORDERED: ATORVASTATIN CA 20 MG TABLET (FP) ONE (19:00)
[2021-03-19] MEDS: ATORVASTATIN CA 80 MG TABLET (FP) PO SCH (21:17)
[2021-03-19] MEDS: THIAMINE HCL 100 MG TABLET (FP) PO SCH (21:17)
[2021-03-19] MEDS: MELATONIN 5 MG TABLETS PO SCH (21:17)
[2021-03-19] MEDS: MIRTAZAPINE 15 MG TABLET (FP) PO SCH (21:17)
[2021-03-20] MEDS: DOCUSATE SODIUM 100 MG CAPSULE (FP) PO PRN (06:45)
[2021-03-20] MEDS: LISINOPRIL 5 MG TABLET PO SCH (09:41)
[2021-03-20] MEDS: PRENATAL VITAMINS W/ FOLIC ACID TABLET (FP) PO SCH (09:41)
[2021-03-20] MEDS: ASPIRIN 81 MG CHEWABLE TABLETS PO SCH (09:41)
[2021-03-20] MEDS: VERAPAMIL HCL 120 MG E.R. TABLET PO SCH (09:41)
[2021-03-20] MEDS: CHOLECALCIFEROL (VIT D3) 1,000 UNIT (25 MCG) TABLET PO SCH (09:42)
[2021-03-20] MEDS ORDERED: ATORVASTATIN CA 40 MG TABLET (FP) ONE (19:23)
[2021-03-20] MEDS: MIRTAZAPINE 15 MG TABLET (FP) PO SCH (21:47)
[2021-03-20] MEDS: MELATONIN 5 MG TABLETS PO SCH (21:48)
[2021-03-20] MEDS: ATORVASTATIN CA 80 MG TABLET (FP) PO SCH (21:48)
[2021-03-20] MEDS: THIAMINE HCL 100 MG TABLET (FP) PO SCH (21:48)
[2021-03-21] MEDS: CHOLECALCIFEROL (VIT D3) 1,000 UNIT (25 MCG) TABLET PO SCH (10:24)
[2021-03-21] MEDS: LISINOPRIL 5 MG TABLET PO SCH (10:24)
[2021-03-21] MEDS: PRENATAL VITAMINS W/ FOLIC ACID TABLET (FP) PO SCH (10:24)
[2021-03-21] MEDS: ASPIRIN 81 MG CHEWABLE TABLETS PO SCH (10:24)
[2021-03-21] MEDS: VERAPAMIL HCL 120 MG E.R. TABLET PO SCH (10:25)
[2021-03-21] MEDS: DOCUSATE SODIUM 100 MG CAPSULE (FP) PO PRN (10:25)
[2021-03-21] MEDS ORDERED: ATORVASTATIN CA 40 MG TABLET (FP) ONE (18:47)
[2021-03-21] MEDS: MELATONIN 5 MG TABLETS PO SCH (21:26)
[2021-03-21] MEDS: MIRTAZAPINE 15 MG TABLET (FP) PO SCH (21:26)
[2021-03-21] MEDS: THIAMINE HCL 100 MG TABLET (FP) PO SCH (21:26)
[2021-03-21] MEDS: ATORVASTATIN CA 80 MG TABLET (FP) PO SCH (21:27)
[2021-03-22 06:05] VITALS: BP 123/79; PULSE 54; TEMP 97.9
[2021-03-22] MEDS: ASPIRIN 81 MG CHEWABLE TABLETS PO SCH (09:25)
[2021-03-22] MEDS: DOCUSATE SODIUM 100 MG CAPSULE (FP) PO PRN (09:25)
[2021-03-22] MEDS: LISINOPRIL 5 MG TABLET PO SCH (09:25)
[2021-03-22] MEDS: PRENATAL VITAMINS W/ FOLIC ACID TABLET (FP) PO SCH (09:25)
[2021-03-22] MEDS: CHOLECALCIFEROL (VIT D3) 1,000 UNIT (25 MCG) TABLET PO SCH (09:26)
[2021-03-22] MEDS: VERAPAMIL HCL 120 MG E.R. TABLET PO SCH (09:26)
== END 2021-03-22 09:55 | disposition home or self-care (01) | DRG 895 ==
LOC: YASAS 09:06 → Y3W 14:14
PROVIDERS: ADMIT Allergy & Immunology; ATTEND Allergy & Immunology
PROC: HZ42ZZZ Group Counseling for Substance Abuse Treatment, Cognitive-Behavioral (ICD-10-PCS; principal; 2021-03-08)
DX: F10.20 Alcohol dependence, uncomplicated (principal); F14.20 Cocaine dependence, uncomplicated; F19.282 Other psychoactive substance dependence with psychoactive substance-induced sleep disorder; F20.9 Schizophrenia, unspecified; F32.9 Major depressive disorder, single episode, unspecified; E11.9 Type 2 diabetes mellitus without complications; E78.00 Pure hypercholesterolemia, unspecified; I25.10 Atherosclerotic heart disease of native coronary artery without angina pectoris; I10 Essential (primary) hypertension; R76.11 Nonspecific reaction to tuberculin skin test without active tuberculosis; Z96.0 Presence of urogenital implants; Z87.891 Personal history of nicotine dependence
CPT/HCPCS: 36415; 80053; 81003; 82962; 85027; 86780; C9803; U0003; U0005

== ENCOUNTER 2022-04-06 09:40 | Inpatient (IN) | payer OTHER ==
[2022-04-06 10:07] VITALS: BMI 27.2
[2022-04-06] MEDS ORDERED: LOPERAMIDE HCL 2 MG CAPSULE PO PRN (10:55)
[2022-04-06] MEDS ORDERED: IBUPROFEN 400 MG TABLET (FP) PO PRN (10:55)
[2022-04-06] MEDS ORDERED: ACETAMINOPHEN 325 MG TABLET (FP) PO PRN ×2 (10:55)
[2022-04-06] MEDS ORDERED: NICOTINE 10 MG CARTRIDGE (INHALER) IH PRN (10:55)
[2022-04-06] MEDS ORDERED: MAG HYDROX/AL HYDROX/SIMETH 30 ML UNIT-DOSE CUP PO PRN (10:55)
[2022-04-06] MEDS ORDERED: IBUPROFEN 600 MG TABLET (FP) PO PRN (10:55)
[2022-04-06] MEDS ORDERED: BENZOCAINE/MENTHOL (CHLORASEPTIC ) LOZENGE MM PRN (10:55)
[2022-04-06] MEDS ORDERED: DICYCLOMINE HCL 10 MG CAPSULE PO PRN (10:55)
[2022-04-06] MEDS ORDERED: MAGNESIUM CITRATE 300 ML BOTTLE PO PRN (10:55)
[2022-04-06] MEDS ORDERED: BISMUTH SUBSALICYLATE 262 MG/15 ML BTL PO PRN (10:55)
[2022-04-06] MEDS ORDERED: ONDANSETRON *ODT* 4 MG TABLET SL PRN (10:55)
[2022-04-06] MEDS: chlordiazePOXIDE HCL 25 MG CAPSULE PO PRN ×2 (12:04→18:03)
[2022-04-06] MEDS: METHOCARBAMOL 500 MG TABLET PO PRN ×2 (12:05→18:03)
[2022-04-06] MEDS: hydrOXYzine PAMOATE 25 MG CAPSULE (FP) PO SCH ×3 (14:40→22:52)
[2022-04-06] MEDS: THIAMINE HCL 100 MG TABLET (FP) PO SCH (22:52)
[2022-04-06] MEDS: MIRTAZAPINE 15 MG TABLET (FP) PO SCH (22:52)
[2022-04-06] MEDS: chlordiazePOXIDE HCL 25 MG CAPSULE PO SCH (22:52)
[2022-04-06] MEDS: MELATONIN 5 MG TABLETS PO SCH (22:52)
[2022-04-06] MEDS: HALOPERIDOL 5 MG TABLET PO SCH (22:53)
[2022-04-07] MEDS: hydrOXYzine PAMOATE 25 MG CAPSULE (FP) PO SCH ×5 (06:09→22:46)
[2022-04-07] MEDS: chlordiazePOXIDE HCL 25 MG CAPSULE PO SCH ×4 (06:09→22:46)
[2022-04-07] MEDS: PRENATAL VITAMINS W/ FOLIC ACID TABLET (FP) PO SCH (10:34)
[2022-04-07] MEDS: METHOCARBAMOL 500 MG TABLET PO PRN (10:37)
[2022-04-07 10:55] LABS: HEMATOCRIT 38.5 % (35.4-49); HEMOGLOBIN 12.8 GM/dL (11.7-16.9); MCH 30.5 pg (25.7-33.7); MCHC 33.3 g/dl (32.0-35.9); MEAN CELL VOLUME 91.7 fl (80-96); MEAN PLT VOLUME 6.7 fl (7.5-11.1); PLATELET COUNT 270 10^3/uL (134-434); RDW 13.9 % (11.9-15.9); WHITE BLOOD COUNT 4.7 K/mm3 (4.0-10.0)
[2022-04-07 11:09] LABS: ALBUMIN 3.4 g/dl (3.4-5.0); BLOOD UREA NITROGEN 8.6 mg/dL (7-18); CALCIUM 9.4 mg/dL (8.5-10.1)
[2022-04-07 11:14] LABS: BILIRUBIN,TOTAL 0.7 mg/dL (0.2-1); TOT PROT 6.9 g/dl (6.4-8.2)
[2022-04-07] MEDS: MELATONIN 5 MG TABLETS PO SCH (22:46)
[2022-04-07] MEDS: THIAMINE HCL 100 MG TABLET (FP) PO SCH (22:46)
[2022-04-07] MEDS: MIRTAZAPINE 15 MG TABLET (FP) PO SCH (22:46)
[2022-04-07] MEDS: HALOPERIDOL 5 MG TABLET PO SCH (22:46)
[2022-04-08] MEDS: hydrOXYzine PAMOATE 25 MG CAPSULE (FP) PO SCH ×5 (05:31→22:56)
[2022-04-08] MEDS: chlordiazePOXIDE HCL 25 MG CAPSULE PO SCH ×4 (05:31→22:54)
[2022-04-08] MEDS: PRENATAL VITAMINS W/ FOLIC ACID TABLET (FP) PO SCH (10:21)
[2022-04-08] MEDS: LISINOPRIL 5 MG TABLET PO SCH (11:21)
[2022-04-08] MEDS ORDERED: ATORVASTATIN CA 80 MG TABLET (FP) PO SCH (22:00)
[2022-04-08] MEDS: HALOPERIDOL 5 MG TABLET PO SCH (22:53)
[2022-04-08] MEDS: THIAMINE HCL 100 MG TABLET (FP) PO SCH (22:53)
[2022-04-08] MEDS: MIRTAZAPINE 15 MG TABLET (FP) PO SCH (22:54)
[2022-04-08] MEDS: MELATONIN 5 MG TABLETS PO SCH (22:57)
[2022-04-08] MEDS: DOCUSATE SODIUM 100 MG CAPSULE (FP) PO SCH (22:57)
[2022-04-09] MEDS ORDERED: chlordiazePOXIDE HCL 10 MG CAPSULE PO PRN
[2022-04-09] MEDS: hydrOXYzine PAMOATE 25 MG CAPSULE (FP) PO SCH ×5 (05:47→22:29)
[2022-04-09] MEDS: chlordiazePOXIDE HCL 10 MG CAPSULE PO SCH ×4 (05:47→22:29)
[2022-04-09] MEDS: metFORMIN HCL 500 MG TABLET (FP) PO SCH (07:12)
[2022-04-09] MEDS: PRENATAL VITAMINS W/ FOLIC ACID TABLET (FP) PO SCH (10:06)
[2022-04-09] MEDS: DOCUSATE SODIUM 100 MG CAPSULE (FP) PO SCH ×2 (10:07→22:29)
[2022-04-09] MEDS: LISINOPRIL 5 MG TABLET PO SCH (10:07)
[2022-04-09] MEDS ORDERED: ASPIRIN 81 MG CHEWABLE TABLETS PO ONE (10:52)
[2022-04-09] MEDS ORDERED: INSULIN (NOVOLOG) ASPART 100 UNITS/ML 10ML VIAL ONE (16:45)
[2022-04-09] MEDS: INSULIN SLIDING SCALE (NOVOLOG) 1 VIAL SQ SCH ×2 (17:37→22:30)
[2022-04-09] MEDS: MELATONIN 5 MG TABLETS PO SCH (22:29)
[2022-04-09] MEDS: ATORVASTATIN CA 20 MG TABLET (FP) PO SCH (22:29)
[2022-04-09] MEDS: THIAMINE HCL 100 MG TABLET (FP) PO SCH (22:29)
[2022-04-09] MEDS: MIRTAZAPINE 15 MG TABLET (FP) PO SCH (22:29)
[2022-04-09] MEDS: HALOPERIDOL 5 MG TABLET PO SCH (23:31)
[2022-04-10] MEDS: chlordiazePOXIDE HCL 10 MG CAPSULE PO SCH ×2 (05:36→17:52)
[2022-04-10] MEDS: hydrOXYzine PAMOATE 25 MG CAPSULE (FP) PO SCH ×6 (05:36→22:13)
[2022-04-10] MEDS: INSULIN SLIDING SCALE (NOVOLOG) 1 VIAL SQ SCH ×5 (07:29→22:25)
[2022-04-10] MEDS: metFORMIN HCL 500 MG TABLET (FP) PO SCH (07:29)
[2022-04-10] MEDS: PRENATAL VITAMINS W/ FOLIC ACID TABLET (FP) PO SCH (10:18)
[2022-04-10] MEDS: LISINOPRIL 5 MG TABLET PO SCH (10:18)
[2022-04-10] MEDS: VERAPAMIL HCL 120 MG E.R. TABLET PO SCH (10:18)
[2022-04-10] MEDS: DOCUSATE SODIUM 100 MG CAPSULE (FP) PO SCH ×2 (10:18→22:13)
[2022-04-10] MEDS ORDERED: INSULIN (NOVOLOG) ASPART 100 UNITS/ML 10ML VIAL ONE (12:07)
[2022-04-10] MEDS: THIAMINE HCL 100 MG TABLET (FP) PO SCH (22:12)
[2022-04-10] MEDS: MELATONIN 5 MG TABLETS PO SCH (22:12)
[2022-04-10] MEDS: HALOPERIDOL 5 MG TABLET PO SCH (22:12)
[2022-04-10] MEDS: MIRTAZAPINE 15 MG TABLET (FP) PO SCH (22:13)
[2022-04-10] MEDS: ATORVASTATIN CA 20 MG TABLET (FP) PO SCH (22:13)
[2022-04-11] MEDS ORDERED: chlordiazePOXIDE HCL 10 MG CAPSULE PO ONE (05:00)
[2022-04-11] MEDS: hydrOXYzine PAMOATE 25 MG CAPSULE (FP) PO SCH ×5 (05:16→21:30)
[2022-04-11] MEDS: metFORMIN HCL 500 MG TABLET (FP) PO SCH (06:35)
[2022-04-11] MEDS ORDERED: INSULIN (NOVOLOG) ASPART 100 UNITS/ML 10ML VIAL ONE (08:06)
[2022-04-11] MEDS: INSULIN SLIDING SCALE (NOVOLOG) 1 VIAL SQ SCH ×4 (08:11→21:33)
[2022-04-11] MEDS: PRENATAL VITAMINS W/ FOLIC ACID TABLET (FP) PO SCH (10:11)
[2022-04-11] MEDS: DOCUSATE SODIUM 100 MG CAPSULE (FP) PO SCH ×2 (10:11→21:30)
[2022-04-11] MEDS: VERAPAMIL HCL 120 MG E.R. TABLET PO SCH (10:12)
[2022-04-11] MEDS: LISINOPRIL 5 MG TABLET PO SCH (10:12)
[2022-04-11] MEDS: MAGNESIUM HYDROX 2400MG/30ML ORAL SUSPENSION 30 ML CUP PO PRN (16:44)
[2022-04-11] MEDS: MELATONIN 5 MG TABLETS PO SCH (21:30)
[2022-04-11] MEDS: MIRTAZAPINE 15 MG TABLET (FP) PO SCH (21:30)
[2022-04-11] MEDS: ATORVASTATIN CA 20 MG TABLET (FP) PO SCH (21:30)
[2022-04-11] MEDS: HALOPERIDOL 5 MG TABLET PO SCH (21:30)
[2022-04-11] MEDS: THIAMINE HCL 100 MG TABLET (FP) PO SCH (21:30)
[2022-04-12] MEDS: metFORMIN HCL 500 MG TABLET (FP) PO SCH (06:52)
[2022-04-12] MEDS: hydrOXYzine PAMOATE 25 MG CAPSULE (FP) PO SCH ×2 (06:52→09:47)
[2022-04-12] MEDS: INSULIN SLIDING SCALE (NOVOLOG) 1 VIAL SQ SCH ×2 (06:53→16:40)
[2022-04-12] MEDS: LISINOPRIL 5 MG TABLET PO SCH (09:46)
[2022-04-12] MEDS: DOCUSATE SODIUM 100 MG CAPSULE (FP) PO SCH ×2 (09:46→21:13)
[2022-04-12] MEDS: VERAPAMIL HCL 120 MG E.R. TABLET PO SCH (09:46)
[2022-04-12] MEDS: PRENATAL VITAMINS W/ FOLIC ACID TABLET (FP) PO SCH (09:47)
[2022-04-12] MEDS: ASPIRIN 81 MG CHEWABLE TABLETS PO SCH (13:22)
[2022-04-12] MEDS: MAGNESIUM HYDROX 2400MG/30ML ORAL SUSPENSION 30 ML CUP PO PRN (13:24)
[2022-04-12] MEDS ORDERED: hydrOXYzine PAMOATE 25 MG CAPSULE (FP) PO PRN (16:04)
[2022-04-12] MEDS ORDERED: INSULIN (NOVOLOG) ASPART 100 UNITS/ML 10ML VIAL ONE (16:35)
[2022-04-12] MEDS: THIAMINE HCL 100 MG TABLET (FP) PO SCH (21:12)
[2022-04-12] MEDS: MIRTAZAPINE 15 MG TABLET (FP) PO SCH (21:12)
[2022-04-12] MEDS: MELATONIN 5 MG TABLETS PO SCH (21:12)
[2022-04-12] MEDS: HALOPERIDOL 5 MG TABLET PO SCH (21:13)
[2022-04-12] MEDS: ATORVASTATIN CA 20 MG TABLET (FP) PO SCH (21:13)
[2022-04-13] MEDS: metFORMIN HCL 500 MG TABLET (FP) PO SCH (07:05)
[2022-04-13] MEDS: INSULIN SLIDING SCALE (NOVOLOG) 1 VIAL SQ SCH ×2 (07:07→17:30)
[2022-04-13] MEDS: PRENATAL VITAMINS W/ FOLIC ACID TABLET (FP) PO SCH (09:53)
[2022-04-13] MEDS: ASPIRIN 81 MG CHEWABLE TABLETS PO SCH (09:53)
[2022-04-13] MEDS: LISINOPRIL 5 MG TABLET PO SCH (09:53)
[2022-04-13] MEDS: DOCUSATE SODIUM 100 MG CAPSULE (FP) PO SCH ×2 (09:53→21:15)
[2022-04-13] MEDS: VERAPAMIL HCL 120 MG E.R. TABLET PO SCH (09:55)
[2022-04-13] MEDS: THIAMINE HCL 100 MG TABLET (FP) PO SCH (21:15)
[2022-04-13] MEDS: GABAPENTIN 400 MG CAPSULE PO SCH (21:15)
[2022-04-13] MEDS: MIRTAZAPINE 15 MG TABLET (FP) PO SCH (21:15)
[2022-04-13] MEDS: HALOPERIDOL 5 MG TABLET PO SCH (21:15)
[2022-04-13] MEDS: MELATONIN 5 MG TABLETS PO SCH (21:16)
[2022-04-13] MEDS: ATORVASTATIN CA 20 MG TABLET (FP) PO SCH (21:16)
[2022-04-14] MEDS: metFORMIN HCL 500 MG TABLET (FP) PO SCH (06:25)
[2022-04-14] MEDS: INSULIN SLIDING SCALE (NOVOLOG) 1 VIAL SQ SCH ×2 (06:26→16:36)
[2022-04-14] MEDS: VERAPAMIL HCL 120 MG E.R. TABLET PO SCH (09:16)
[2022-04-14] MEDS: ASPIRIN 81 MG CHEWABLE TABLETS PO SCH (09:16)
[2022-04-14] MEDS: LISINOPRIL 5 MG TABLET PO SCH (09:17)
[2022-04-14] MEDS: PRENATAL VITAMINS W/ FOLIC ACID TABLET (FP) PO SCH (09:17)
[2022-04-14] MEDS: DOCUSATE SODIUM 100 MG CAPSULE (FP) PO SCH ×2 (09:17→21:04)
[2022-04-14] MEDS: GABAPENTIN 400 MG CAPSULE PO SCH ×2 (09:17→21:04)
[2022-04-14] MEDS: MAGNESIUM HYDROX 2400MG/30ML ORAL SUSPENSION 30 ML CUP PO PRN (10:13)
[2022-04-14] MEDS: MELATONIN 5 MG TABLETS PO SCH (21:03)
[2022-04-14] MEDS: THIAMINE HCL 100 MG TABLET (FP) PO SCH (21:03)
[2022-04-14] MEDS: MIRTAZAPINE 15 MG TABLET (FP) PO SCH (21:04)
[2022-04-14] MEDS: ATORVASTATIN CA 20 MG TABLET (FP) PO SCH (21:04)
[2022-04-14] MEDS: HALOPERIDOL 5 MG TABLET PO SCH (21:04)
[2022-04-15] MEDS: metFORMIN HCL 500 MG TABLET (FP) PO SCH (06:54)
[2022-04-15] MEDS: INSULIN SLIDING SCALE (NOVOLOG) 1 VIAL SQ SCH ×2 (06:55→16:26)
[2022-04-15] MEDS: DOCUSATE SODIUM 100 MG CAPSULE (FP) PO SCH ×2 (09:52→21:18)
[2022-04-15] MEDS: GABAPENTIN 400 MG CAPSULE PO SCH ×2 (09:52→21:18)
[2022-04-15] MEDS: PRENATAL VITAMINS W/ FOLIC ACID TABLET (FP) PO SCH (09:52)
[2022-04-15] MEDS: ASPIRIN 81 MG CHEWABLE TABLETS PO SCH (09:52)
[2022-04-15] MEDS: LISINOPRIL 5 MG TABLET PO SCH (09:53)
[2022-04-15] MEDS: VERAPAMIL HCL 120 MG E.R. TABLET PO SCH (09:53)
[2022-04-15] MEDS: MAGNESIUM HYDROX 2400MG/30ML ORAL SUSPENSION 30 ML CUP PO PRN (12:40)
[2022-04-15] MEDS ORDERED: INSULIN (NOVOLOG) ASPART 100 UNITS/ML 10ML VIAL ONE (16:25)
[2022-04-15] MEDS: MELATONIN 5 MG TABLETS PO SCH (21:18)
[2022-04-15] MEDS: HALOPERIDOL 5 MG TABLET PO SCH (21:18)
[2022-04-15] MEDS: MIRTAZAPINE 15 MG TABLET (FP) PO SCH (21:18)
[2022-04-15] MEDS: THIAMINE HCL 100 MG TABLET (FP) PO SCH (21:18)
[2022-04-15] MEDS: ATORVASTATIN CA 20 MG TABLET (FP) PO SCH (21:19)
[2022-04-16] MEDS: metFORMIN HCL 500 MG TABLET (FP) PO SCH (06:34)
[2022-04-16] MEDS: INSULIN SLIDING SCALE (NOVOLOG) 1 VIAL SQ SCH ×2 (06:35→16:21)
[2022-04-16] MEDS: DOCUSATE SODIUM 100 MG CAPSULE (FP) PO SCH ×2 (10:06→21:09)
[2022-04-16] MEDS: PRENATAL VITAMINS W/ FOLIC ACID TABLET (FP) PO SCH (10:07)
[2022-04-16] MEDS: ASPIRIN 81 MG CHEWABLE TABLETS PO SCH (10:07)
[2022-04-16] MEDS: GABAPENTIN 400 MG CAPSULE PO SCH ×2 (10:07→21:09)
[2022-04-16] MEDS: VERAPAMIL HCL 120 MG E.R. TABLET PO SCH (10:48)
[2022-04-16] MEDS: LISINOPRIL 5 MG TABLET PO SCH (10:48)
[2022-04-16] MEDS: MAGNESIUM HYDROX 2400MG/30ML ORAL SUSPENSION 30 ML CUP PO PRN (11:52)
[2022-04-16] MEDS: THIAMINE HCL 100 MG TABLET (FP) PO SCH (21:07)
[2022-04-16] MEDS: MELATONIN 5 MG TABLETS PO SCH (21:07)
[2022-04-16] MEDS: HALOPERIDOL 5 MG TABLET PO SCH (21:07)
[2022-04-16] MEDS: ATORVASTATIN CA 20 MG TABLET (FP) PO SCH (21:08)
[2022-04-16] MEDS: MIRTAZAPINE 15 MG TABLET (FP) PO SCH (21:08)
[2022-04-17] MEDS: metFORMIN HCL 500 MG TABLET (FP) PO SCH (06:11)
[2022-04-17] MEDS: INSULIN SLIDING SCALE (NOVOLOG) 1 VIAL SQ SCH ×2 (06:42→16:29)
[2022-04-17] MEDS: MAGNESIUM HYDROX 2400MG/30ML ORAL SUSPENSION 30 ML CUP PO PRN (07:14)
[2022-04-17] MEDS: DOCUSATE SODIUM 100 MG CAPSULE (FP) PO SCH ×2 (09:46→21:13)
[2022-04-17] MEDS: VERAPAMIL HCL 120 MG E.R. TABLET PO SCH (09:46)
[2022-04-17] MEDS: GABAPENTIN 400 MG CAPSULE PO SCH ×2 (09:46→21:13)
[2022-04-17] MEDS: ASPIRIN 81 MG CHEWABLE TABLETS PO SCH (09:46)
[2022-04-17] MEDS: LISINOPRIL 5 MG TABLET PO SCH (09:47)
[2022-04-17] MEDS: PRENATAL VITAMINS W/ FOLIC ACID TABLET (FP) PO SCH (09:47)
[2022-04-17] MEDS: THIAMINE HCL 100 MG TABLET (FP) PO SCH (21:12)
[2022-04-17] MEDS: ATORVASTATIN CA 20 MG TABLET (FP) PO SCH (21:12)
[2022-04-17] MEDS: MELATONIN 5 MG TABLETS PO SCH (21:12)
[2022-04-17] MEDS: HALOPERIDOL 5 MG TABLET PO SCH (21:13)
[2022-04-17] MEDS: MIRTAZAPINE 15 MG TABLET (FP) PO SCH (21:13)
[2022-04-18] MEDS: INSULIN SLIDING SCALE (NOVOLOG) 1 VIAL SQ SCH ×2 (06:13→16:38)
[2022-04-18] MEDS: metFORMIN HCL 500 MG TABLET (FP) PO SCH (06:13)
[2022-04-18] MEDS: MAGNESIUM HYDROX 2400MG/30ML ORAL SUSPENSION 30 ML CUP PO PRN (06:52)
[2022-04-18] MEDS: ASPIRIN 81 MG CHEWABLE TABLETS PO SCH (09:54)
[2022-04-18] MEDS: DOCUSATE SODIUM 100 MG CAPSULE (FP) PO SCH ×2 (09:54→21:22)
[2022-04-18] MEDS: VERAPAMIL HCL 120 MG E.R. TABLET PO SCH (09:54)
[2022-04-18] MEDS: PRENATAL VITAMINS W/ FOLIC ACID TABLET (FP) PO SCH (09:54)
[2022-04-18] MEDS: LISINOPRIL 5 MG TABLET PO SCH (09:54)
[2022-04-18] MEDS: GABAPENTIN 400 MG CAPSULE PO SCH ×2 (09:54→21:23)
[2022-04-18] MEDS: THIAMINE HCL 100 MG TABLET (FP) PO SCH (21:22)
[2022-04-18] MEDS: MELATONIN 5 MG TABLETS PO SCH (21:22)
[2022-04-18] MEDS: MIRTAZAPINE 15 MG TABLET (FP) PO SCH (21:23)
[2022-04-18] MEDS: HALOPERIDOL 5 MG TABLET PO SCH (21:23)
[2022-04-18] MEDS: ATORVASTATIN CA 20 MG TABLET (FP) PO SCH (21:23)
[2022-04-19] MEDS: metFORMIN HCL 500 MG TABLET (FP) PO SCH (06:30)
[2022-04-19] MEDS: INSULIN SLIDING SCALE (NOVOLOG) 1 VIAL SQ SCH ×2 (06:31→16:41)
[2022-04-19] MEDS: DOCUSATE SODIUM 100 MG CAPSULE (FP) PO SCH ×2 (09:44→21:06)
[2022-04-19] MEDS: PRENATAL VITAMINS W/ FOLIC ACID TABLET (FP) PO SCH (09:44)
[2022-04-19] MEDS: GABAPENTIN 400 MG CAPSULE PO SCH ×2 (09:44→21:06)
[2022-04-19] MEDS: VERAPAMIL HCL 120 MG E.R. TABLET PO SCH (09:44)
[2022-04-19] MEDS: ASPIRIN 81 MG CHEWABLE TABLETS PO SCH (09:44)
[2022-04-19] MEDS: LISINOPRIL 5 MG TABLET PO SCH (09:45)
[2022-04-19] MEDS: HALOPERIDOL 5 MG TABLET PO SCH (21:06)
[2022-04-19] MEDS: ATORVASTATIN CA 80 MG TABLET (FP) PO SCH (21:06)
[2022-04-19] MEDS: MELATONIN 5 MG TABLETS PO SCH (21:06)
[2022-04-19] MEDS: THIAMINE HCL 100 MG TABLET (FP) PO SCH (21:06)
[2022-04-19] MEDS: MIRTAZAPINE 15 MG TABLET (FP) PO SCH (21:06)
[2022-04-20] MEDS: metFORMIN HCL 500 MG TABLET (FP) PO SCH (06:06)
[2022-04-20] MEDS: INSULIN SLIDING SCALE (NOVOLOG) 1 VIAL SQ SCH ×2 (06:06→17:00)
[2022-04-20] MEDS: GABAPENTIN 400 MG CAPSULE PO SCH ×2 (10:10→21:30)
[2022-04-20] MEDS: VERAPAMIL HCL 120 MG E.R. TABLET PO SCH (10:10)
[2022-04-20] MEDS: DOCUSATE SODIUM 100 MG CAPSULE (FP) PO SCH ×2 (10:10→21:30)
[2022-04-20] MEDS: PRENATAL VITAMINS W/ FOLIC ACID TABLET (FP) PO SCH (10:10)
[2022-04-20] MEDS: LISINOPRIL 5 MG TABLET PO SCH (10:10)
[2022-04-20] MEDS: ASPIRIN 81 MG CHEWABLE TABLETS PO SCH (10:10)
[2022-04-20] MEDS: MIRTAZAPINE 15 MG TABLET (FP) PO SCH (21:30)
[2022-04-20] MEDS: THIAMINE HCL 100 MG TABLET (FP) PO SCH (21:30)
[2022-04-20] MEDS: HALOPERIDOL 5 MG TABLET PO SCH (21:30)
[2022-04-20] MEDS: ATORVASTATIN CA 80 MG TABLET (FP) PO SCH (21:30)
[2022-04-20] MEDS: MELATONIN 5 MG TABLETS PO SCH (21:30)
[2022-04-21] MEDS: INSULIN SLIDING SCALE (NOVOLOG) 1 VIAL SQ SCH ×2 (06:20→17:00)
[2022-04-21] MEDS: metFORMIN HCL 500 MG TABLET (FP) PO SCH (06:20)
[2022-04-21] MEDS: ASPIRIN 81 MG CHEWABLE TABLETS PO SCH (10:01)
[2022-04-21] MEDS: GABAPENTIN 400 MG CAPSULE PO SCH ×2 (10:02→21:05)
[2022-04-21] MEDS: DOCUSATE SODIUM 100 MG CAPSULE (FP) PO SCH ×2 (10:02→21:05)
[2022-04-21] MEDS: PRENATAL VITAMINS W/ FOLIC ACID TABLET (FP) PO SCH (10:02)
[2022-04-21] MEDS: LISINOPRIL 5 MG TABLET PO SCH (10:03)
[2022-04-21] MEDS: VERAPAMIL HCL 120 MG E.R. TABLET PO SCH (10:03)
[2022-04-21] MEDS: MELATONIN 5 MG TABLETS PO SCH (21:05)
[2022-04-21] MEDS: ATORVASTATIN CA 80 MG TABLET (FP) PO SCH (21:05)
[2022-04-21] MEDS: MIRTAZAPINE 15 MG TABLET (FP) PO SCH (21:05)
[2022-04-21] MEDS: THIAMINE HCL 100 MG TABLET (FP) PO SCH (21:05)
[2022-04-21] MEDS: HALOPERIDOL 5 MG TABLET PO SCH (21:05)
[2022-04-22] MEDS: metFORMIN HCL 500 MG TABLET (FP) PO SCH (06:43)
[2022-04-22] MEDS: INSULIN SLIDING SCALE (NOVOLOG) 1 VIAL SQ SCH ×2 (06:44→16:25)
[2022-04-22] MEDS: LISINOPRIL 5 MG TABLET PO SCH (09:38)
[2022-04-22] MEDS: VERAPAMIL HCL 120 MG E.R. TABLET PO SCH (09:38)
[2022-04-22] MEDS: DOCUSATE SODIUM 100 MG CAPSULE (FP) PO SCH ×2 (09:39→21:09)
[2022-04-22] MEDS: GABAPENTIN 400 MG CAPSULE PO SCH ×2 (09:39→21:09)
[2022-04-22] MEDS: ASPIRIN 81 MG CHEWABLE TABLETS PO SCH (09:40)
[2022-04-22] MEDS: PRENATAL VITAMINS W/ FOLIC ACID TABLET (FP) PO SCH (09:40)
[2022-04-22] MEDS ORDERED: INSULIN (NOVOLOG) ASPART 100 UNITS/ML 10ML VIAL ONE (16:23)
[2022-04-22] MEDS: THIAMINE HCL 100 MG TABLET (FP) PO SCH (21:08)
[2022-04-22] MEDS: MELATONIN 5 MG TABLETS PO SCH (21:08)
[2022-04-22] MEDS: MIRTAZAPINE 15 MG TABLET (FP) PO SCH (21:09)
[2022-04-22] MEDS: HALOPERIDOL 5 MG TABLET PO SCH (21:09)
[2022-04-22] MEDS: ATORVASTATIN CA 80 MG TABLET (FP) PO SCH (21:10)
[2022-04-23] MEDS: INSULIN SLIDING SCALE (NOVOLOG) 1 VIAL SQ SCH ×2 (06:20→16:21)
[2022-04-23] MEDS: metFORMIN HCL 500 MG TABLET (FP) PO SCH (06:20)
[2022-04-23] MEDS: ASPIRIN 81 MG CHEWABLE TABLETS PO SCH (09:55)
[2022-04-23] MEDS: DOCUSATE SODIUM 100 MG CAPSULE (FP) PO SCH ×2 (09:56→21:05)
[2022-04-23] MEDS: VERAPAMIL HCL 120 MG E.R. TABLET PO SCH (09:56)
[2022-04-23] MEDS: LISINOPRIL 5 MG TABLET PO SCH (09:57)
[2022-04-23] MEDS: GABAPENTIN 400 MG CAPSULE PO SCH ×2 (09:57→21:05)
[2022-04-23] MEDS: PRENATAL VITAMINS W/ FOLIC ACID TABLET (FP) PO SCH (09:57)
[2022-04-23] MEDS: ATORVASTATIN CA 80 MG TABLET (FP) PO SCH (21:05)
[2022-04-23] MEDS: THIAMINE HCL 100 MG TABLET (FP) PO SCH (21:05)
[2022-04-23] MEDS: MELATONIN 5 MG TABLETS PO SCH (21:05)
[2022-04-23] MEDS: MIRTAZAPINE 15 MG TABLET (FP) PO SCH (21:05)
[2022-04-23] MEDS: HALOPERIDOL 5 MG TABLET PO SCH (21:06)
[2022-04-24] MEDS: metFORMIN HCL 500 MG TABLET (FP) PO SCH (06:17)
[2022-04-24] MEDS: INSULIN SLIDING SCALE (NOVOLOG) 1 VIAL SQ SCH (06:44)
[2022-04-24 07:12] VITALS: TEMP 97.3
[2022-04-24 08:52] VITALS: BP 112/71; PULSE 70
[2022-04-24] MEDS: ASPIRIN 81 MG CHEWABLE TABLETS PO SCH (09:16)
[2022-04-24] MEDS: VERAPAMIL HCL 120 MG E.R. TABLET PO SCH (09:16)
[2022-04-24] MEDS: DOCUSATE SODIUM 100 MG CAPSULE (FP) PO SCH (09:16)
[2022-04-24] MEDS: GABAPENTIN 400 MG CAPSULE PO SCH (09:17)
[2022-04-24] MEDS: LISINOPRIL 5 MG TABLET PO SCH (09:17)
[2022-04-24] MEDS: PRENATAL VITAMINS W/ FOLIC ACID TABLET (FP) PO SCH (09:17)
== END 2022-04-24 09:20 | disposition home or self-care (01) | DRG 895 ==
LOC: YASAS 09:40 → Y6N 11:15 → Y3E 04-11 10:49
PROVIDERS: ADMIT Allergy & Immunology; ATTEND Psychiatry & Neurology Pain Medicine
PROC: HZ2ZZZZ Detoxification Services for Substance Abuse Treatment (ICD-10-PCS; 2022-04-06)
PROC: HZ42ZZZ Group Counseling for Substance Abuse Treatment, Cognitive-Behavioral (ICD-10-PCS; principal; 2022-04-11)
DX: F10.20 Alcohol dependence, uncomplicated (principal); F14.20 Cocaine dependence, uncomplicated; F10.282 Alcohol dependence with alcohol-induced sleep disorder; F20.9 Schizophrenia, unspecified; F32.A Depression, unspecified; I25.10 Atherosclerotic heart disease of native coronary artery without angina pectoris; I10 Essential (primary) hypertension; E11.9 Type 2 diabetes mellitus without complications; Z79.84 Long term (current) use of oral hypoglycemic drugs
CPT/HCPCS: 36415; 71046-TC-FY; 80053; 82962; 85027; 86780; 87811; C9803-CS; U0003; U0005

== ENCOUNTER 2022-07-14 11:32 | Inpatient (IN) | payer OTHER ==
[2022-07-14 12:32] VITALS: BMI 26.9
[2022-07-14] MEDS ORDERED: IBUPROFEN 600 MG TABLET (FP) PO PRN (13:18)
[2022-07-14] MEDS ORDERED: MAGNESIUM CITRATE 300 ML BOTTLE PO PRN (13:18)
[2022-07-14] MEDS ORDERED: chlordiazePOXIDE HCL 25 MG CAPSULE PO PRN (13:18)
[2022-07-14] MEDS ORDERED: MAGNESIUM HYDROX 2400MG/30ML ORAL SUSPENSION 30 ML CUP PO PRN (13:18)
[2022-07-14] MEDS ORDERED: ACETAMINOPHEN 325 MG TABLET (FP) PO PRN ×2 (13:18)
[2022-07-14] MEDS ORDERED: MAG HYDROX/AL HYDROX/SIMETH 30 ML UNIT-DOSE CUP PO PRN (13:18)
[2022-07-14] MEDS ORDERED: BISMUTH SUBSALICYLATE 524 MG/30 ML PO PRN (13:18)
[2022-07-14] MEDS ORDERED: METHOCARBAMOL 500 MG TABLET PO PRN (13:18)
[2022-07-14] MEDS ORDERED: IBUPROFEN 400 MG TABLET (FP) PO PRN (13:18)
[2022-07-14] MEDS ORDERED: BENZOCAINE/MENTHOL (CHLORASEPTIC ) LOZENGE MM PRN (13:18)
[2022-07-14] MEDS ORDERED: LOPERAMIDE HCL 2 MG CAPSULE PO PRN (13:18)
[2022-07-14] MEDS ORDERED: NICOTINE 10 MG CARTRIDGE (INHALER) IH PRN (13:18)
[2022-07-14] MEDS ORDERED: ONDANSETRON *ODT* 4 MG TABLET SL PRN (13:18)
[2022-07-14] MEDS ORDERED: DICYCLOMINE HCL 10 MG CAPSULE PO PRN (13:18)
[2022-07-14] MEDS ORDERED: hydrOXYzine PAMOATE 25 MG CAPSULE (FP) PO SCH (14:00)
[2022-07-14] MEDS: hydrOXYzine PAMOATE 25 MG CAPSULE (FP) PO PRN (15:56)
[2022-07-14] MEDS: chlordiazePOXIDE HCL 25 MG CAPSULE PO SCH (19:34)
[2022-07-15] MEDS: chlordiazePOXIDE HCL 25 MG CAPSULE PO SCH ×5 (00:05→22:48)
[2022-07-15] MEDS: MELATONIN 5 MG TABLETS PO SCH ×2 (00:05→23:47)
[2022-07-15] MEDS: VERAPAMIL HCL 120 MG TABLET PO SCH ×2 (00:05→10:30)
[2022-07-15] MEDS: THIAMINE HCL 100 MG TABLET (FP) PO SCH ×2 (00:05→22:48)
[2022-07-15] MEDS: PRENATAL VITAMINS W/ FOLIC ACID TABLET (FP) PO SCH (10:30)
[2022-07-15] MEDS: ASPIRIN 81 MG CHEWABLE TABLETS PO SCH (10:30)
[2022-07-15] MEDS: MIRTAZAPINE 15 MG TABLET (FP) PO SCH (22:48)
[2022-07-15] MEDS: HALOPERIDOL 5 MG TABLET PO SCH (22:48)
[2022-07-16] MEDS: chlordiazePOXIDE HCL 25 MG CAPSULE PO SCH ×3 (06:23→17:07)
[2022-07-16] MEDS: ASPIRIN 81 MG CHEWABLE TABLETS PO SCH (10:31)
[2022-07-16] MEDS: PRENATAL VITAMINS W/ FOLIC ACID TABLET (FP) PO SCH (10:31)
[2022-07-16] MEDS: VERAPAMIL HCL 120 MG TABLET PO SCH (10:31)
[2022-07-16 11:57] LABS: CALCIUM 9.1 mg/dL (8.5-10.1)
[2022-07-16 11:58] LABS: ALBUMIN 3.2 g/dl (3.4-5.0); BLOOD UREA NITROGEN 11.4 mg/dL (7-18)
[2022-07-16 12:02] LABS: TOT PROT 6.7 g/dl (6.4-8.2)
[2022-07-16 12:03] LABS: BILIRUBIN,TOTAL 0.2 mg/dL (0.2-1)
[2022-07-16 12:11] LABS: HEMATOCRIT 38.2 % (35.4-49); HEMOGLOBIN 12.9 GM/dL (11.7-16.9); MCH 31.4 pg (25.7-33.7); MCHC 33.9 g/dl (32.0-35.9); MEAN CELL VOLUME 92.7 fl (80-96); MEAN PLT VOLUME 6.7 fl (7.5-11.1); PLATELET COUNT 319 10^3/uL (134-434); RBC 4.12 M/mm3 (4.00-5.60); RDW 14.5 % (11.9-15.9); WHITE BLOOD COUNT 4.4 K/mm3 (4.0-10.0)
[2022-07-16] MEDS: hydrOXYzine PAMOATE 25 MG CAPSULE (FP) PO PRN (17:07)
[2022-07-17] MEDS ORDERED: chlordiazePOXIDE HCL 10 MG CAPSULE PO PRN
[2022-07-17] MEDS: chlordiazePOXIDE HCL 25 MG CAPSULE PO SCH (00:12)
[2022-07-17] MEDS: THIAMINE HCL 100 MG TABLET (FP) PO SCH ×2 (00:12→23:32)
[2022-07-17] MEDS: MELATONIN 5 MG TABLETS PO SCH ×2 (00:12→23:32)
[2022-07-17] MEDS: HALOPERIDOL 5 MG TABLET PO SCH ×2 (00:12→23:32)
[2022-07-17] MEDS: MIRTAZAPINE 15 MG TABLET (FP) PO SCH ×2 (00:12→23:32)
[2022-07-17] MEDS: chlordiazePOXIDE HCL 10 MG CAPSULE PO SCH ×4 (06:25→23:32)
[2022-07-17] MEDS: ASPIRIN 81 MG CHEWABLE TABLETS PO SCH (10:41)
[2022-07-17] MEDS: PRENATAL VITAMINS W/ FOLIC ACID TABLET (FP) PO SCH (10:41)
[2022-07-17] MEDS: VERAPAMIL HCL 120 MG E.R. TABLET PO SCH (15:23)
[2022-07-17] MEDS: hydrOXYzine PAMOATE 25 MG CAPSULE (FP) PO PRN (18:13)
[2022-07-18] MEDS: chlordiazePOXIDE HCL 10 MG CAPSULE PO SCH ×2 (05:18→17:55)
[2022-07-18] MEDS: PRENATAL VITAMINS W/ FOLIC ACID TABLET (FP) PO SCH (10:41)
[2022-07-18] MEDS: VERAPAMIL HCL 120 MG E.R. TABLET PO SCH (10:42)
[2022-07-18] MEDS: ASPIRIN 81 MG CHEWABLE TABLETS PO SCH (10:42)
[2022-07-18] MEDS: hydrOXYzine PAMOATE 25 MG CAPSULE (FP) PO PRN (10:42)
[2022-07-18] MEDS: MELATONIN 5 MG TABLETS PO SCH (23:20)
[2022-07-18] MEDS: MIRTAZAPINE 15 MG TABLET (FP) PO SCH (23:20)
[2022-07-18] MEDS: HALOPERIDOL 5 MG TABLET PO SCH (23:20)
[2022-07-18] MEDS: THIAMINE HCL 100 MG TABLET (FP) PO SCH (23:20)
[2022-07-19] MEDS ORDERED: chlordiazePOXIDE HCL 10 MG CAPSULE PO ONE (05:00)
[2022-07-19 10:01] VITALS: BP 104/52; PULSE 64; RESP 17; TEMP 97.7
[2022-07-19] MEDS: PRENATAL VITAMINS W/ FOLIC ACID TABLET (FP) PO SCH (10:58)
[2022-07-19] MEDS: VERAPAMIL HCL 120 MG E.R. TABLET PO SCH (10:58)
[2022-07-19] MEDS: ASPIRIN 81 MG CHEWABLE TABLETS PO SCH (10:58)
== END 2022-07-19 10:50 | disposition home or self-care (01) | DRG 897 ==
LOC: YASAS 11:32 → Y6N 15:02
PROVIDERS: ADMIT Allergy & Immunology; ATTEND Surgery
PROC: HZ2ZZZZ Detoxification Services for Substance Abuse Treatment (ICD-10-PCS; principal; 2022-07-14)
DX: F10.230 Alcohol dependence with withdrawal, uncomplicated (principal); F14.20 Cocaine dependence, uncomplicated; F10.282 Alcohol dependence with alcohol-induced sleep disorder; F25.1 Schizoaffective disorder, depressive type; I25.10 Atherosclerotic heart disease of native coronary artery without angina pectoris; I10 Essential (primary) hypertension; E11.9 Type 2 diabetes mellitus without complications; R76.11 Nonspecific reaction to tuberculin skin test without active tuberculosis; Z59.01 Sheltered homelessness; Z56.0 Unemployment, unspecified
CPT/HCPCS: 36415; 80053; 82962; 85027; 86780; 87811; C9803-CS; U0003; U0005

== ENCOUNTER 2022-08-11 12:09 | Inpatient (IN) | payer OTHER ==
[2022-08-11 12:54] VITALS: BMI 26.9
[2022-08-11] MEDS ORDERED: NALOXONE HCL (KLOXXADO) 8 MG SPRAY NS PRN (14:58)
[2022-08-11] MEDS ORDERED: ACETAMINOPHEN 325 MG TABLET (FP) PO PRN ×2 (14:58)
[2022-08-11] MEDS ORDERED: METHOCARBAMOL 500 MG TABLET PO PRN (14:58)
[2022-08-11] MEDS ORDERED: MAGNESIUM CITRATE 300 ML BOTTLE PO PRN (14:58)
[2022-08-11] MEDS ORDERED: BISMUTH SUBSALICYLATE 524 MG/30 ML PO PRN (14:58)
[2022-08-11] MEDS ORDERED: BENZOCAINE/MENTHOL (CHLORASEPTIC ) LOZENGE MM PRN (14:58)
[2022-08-11] MEDS ORDERED: MAG HYDROX/AL HYDROX/SIMETH 30 ML UNIT-DOSE CUP PO PRN (14:58)
[2022-08-11] MEDS ORDERED: DICYCLOMINE HCL 10 MG CAPSULE PO PRN (14:58)
[2022-08-11] MEDS ORDERED: IBUPROFEN 400 MG TABLET (FP) PO PRN (14:58)
[2022-08-11] MEDS ORDERED: chlordiazePOXIDE HCL 25 MG CAPSULE PO PRN (14:58)
[2022-08-11] MEDS ORDERED: ONDANSETRON *ODT* 4 MG TABLET SL PRN (14:58)
[2022-08-11] MEDS ORDERED: NICOTINE 10 MG CARTRIDGE (INHALER) IH PRN (14:58)
[2022-08-11] MEDS ORDERED: IBUPROFEN 600 MG TABLET (FP) PO PRN (14:58)
[2022-08-11] MEDS ORDERED: LOPERAMIDE HCL 2 MG CAPSULE PO PRN (14:58)
[2022-08-11] MEDS: chlordiazePOXIDE HCL 25 MG CAPSULE PO SCH ×2 (17:31→22:39)
[2022-08-11] MEDS: hydrOXYzine PAMOATE 25 MG CAPSULE (FP) PO SCH ×2 (17:32→22:39)
[2022-08-11] MEDS: THIAMINE HCL 100 MG TABLET (FP) PO SCH (22:39)
[2022-08-11] MEDS: MELATONIN 5 MG TABLETS PO SCH (22:39)
[2022-08-12] MEDS: hydrOXYzine PAMOATE 25 MG CAPSULE (FP) PO SCH ×5 (07:51→22:28)
[2022-08-12] MEDS: chlordiazePOXIDE HCL 25 MG CAPSULE PO SCH ×4 (07:51→22:28)
[2022-08-12] MEDS: ASPIRIN 81 MG CHEWABLE TABLETS PO SCH (10:31)
[2022-08-12] MEDS: VERAPAMIL HCL 120 MG E.R. TABLET PO SCH (10:31)
[2022-08-12] MEDS: PRENATAL VITAMINS W/ FOLIC ACID TABLET (FP) PO SCH (10:32)
[2022-08-12 11:24] LABS: HEMOGLOBIN 13.5 GM/dL (11.7-16.9); MCH 30.5 pg (25.7-33.7); MCHC 32.9 g/dl (32.0-35.9); MEAN CELL VOLUME 92.5 fl (80-96); MEAN PLT VOLUME 6.9 fl (7.5-11.1); PLATELET COUNT 375 10^3/uL (134-434); RBC 4.43 M/mm3 (4.00-5.60); WHITE BLOOD COUNT 4.3 K/mm3 (4.0-10.0)
[2022-08-12 11:43] LABS: ALBUMIN 3.5 g/dl (3.4-5.0); BLOOD UREA NITROGEN 9.4 mg/dL (7-18); CALCIUM 9.2 mg/dL (8.5-10.1)
[2022-08-12 11:46] LABS: CREATININE 1.1 mg/dL (0.55-1.3)
[2022-08-12 11:47] LABS: BILIRUBIN,TOTAL 0.5 mg/dL (0.2-1); TOT PROT 7.4 g/dl (6.4-8.2)
[2022-08-12] MEDS ORDERED: FLU VACC QS2022-23(6MOS UP)/PF 60 MCG/0.5 ML SYRINGE IM ONE (12:00)
[2022-08-12 12:34] LABS: HIV INTERPRETATION NEGATIVE (NEGATIVE)
[2022-08-12] MEDS: MELATONIN 5 MG TABLETS PO SCH (22:28)
[2022-08-12] MEDS: THIAMINE HCL 100 MG TABLET (FP) PO SCH (22:28)
[2022-08-13] MEDS: hydrOXYzine PAMOATE 25 MG CAPSULE (FP) PO SCH ×5 (06:07→22:43)
[2022-08-13] MEDS: chlordiazePOXIDE HCL 25 MG CAPSULE PO SCH ×4 (06:07→22:43)
[2022-08-13] MEDS: VERAPAMIL HCL 120 MG E.R. TABLET PO SCH (10:19)
[2022-08-13] MEDS: PRENATAL VITAMINS W/ FOLIC ACID TABLET (FP) PO SCH (10:20)
[2022-08-13] MEDS: ASPIRIN 81 MG CHEWABLE TABLETS PO SCH (10:20)
[2022-08-13] MEDS: MELATONIN 5 MG TABLETS PO SCH (22:43)
[2022-08-13] MEDS: THIAMINE HCL 100 MG TABLET (FP) PO SCH (22:43)
[2022-08-14] MEDS ORDERED: chlordiazePOXIDE HCL 10 MG CAPSULE PO PRN
[2022-08-14] MEDS: chlordiazePOXIDE HCL 10 MG CAPSULE PO SCH ×4 (05:16→22:23)
[2022-08-14] MEDS: hydrOXYzine PAMOATE 25 MG CAPSULE (FP) PO SCH ×5 (05:16→22:24)
[2022-08-14] MEDS: VERAPAMIL HCL 120 MG E.R. TABLET PO SCH (10:46)
[2022-08-14] MEDS: PRENATAL VITAMINS W/ FOLIC ACID TABLET (FP) PO SCH (10:46)
[2022-08-14] MEDS: ASPIRIN 81 MG CHEWABLE TABLETS PO SCH (10:46)
[2022-08-14] MEDS: HALOPERIDOL 5 MG TABLET PO SCH (22:23)
[2022-08-14] MEDS: MIRTAZAPINE 15 MG TABLET (FP) PO SCH (22:23)
[2022-08-14] MEDS: THIAMINE HCL 100 MG TABLET (FP) PO SCH (22:24)
[2022-08-15] MEDS: chlordiazePOXIDE HCL 10 MG CAPSULE PO SCH ×2 (06:21→17:57)
[2022-08-15] MEDS: hydrOXYzine PAMOATE 25 MG CAPSULE (FP) PO SCH ×5 (06:22→22:26)
[2022-08-15] MEDS: ASPIRIN 81 MG CHEWABLE TABLETS PO SCH (10:21)
[2022-08-15] MEDS: PRENATAL VITAMINS W/ FOLIC ACID TABLET (FP) PO SCH (10:21)
[2022-08-15] MEDS: VERAPAMIL HCL 120 MG E.R. TABLET PO SCH (12:39)
[2022-08-15] MEDS: MIRTAZAPINE 15 MG TABLET (FP) PO SCH (22:26)
[2022-08-15] MEDS: HALOPERIDOL 5 MG TABLET PO SCH (22:26)
[2022-08-15] MEDS: THIAMINE HCL 100 MG TABLET (FP) PO SCH (22:26)
[2022-08-16] MEDS ORDERED: chlordiazePOXIDE HCL 10 MG CAPSULE PO ONE (05:00)
[2022-08-16] MEDS: hydrOXYzine PAMOATE 25 MG CAPSULE (FP) PO SCH ×3 (06:21→13:33)
[2022-08-16] MEDS: VERAPAMIL HCL 120 MG E.R. TABLET PO SCH (10:19)
[2022-08-16] MEDS: ASPIRIN 81 MG CHEWABLE TABLETS PO SCH (10:19)
[2022-08-16] MEDS: PRENATAL VITAMINS W/ FOLIC ACID TABLET (FP) PO SCH (10:19)
[2022-08-16] MEDS ORDERED: hydrOXYzine PAMOATE 25 MG CAPSULE (FP) PO PRN (13:41)
[2022-08-16] MEDS: MIRTAZAPINE 15 MG TABLET (FP) PO SCH (21:32)
[2022-08-16] MEDS: HALOPERIDOL 5 MG TABLET PO SCH (21:32)
[2022-08-16] MEDS: THIAMINE HCL 100 MG TABLET (FP) PO SCH (21:32)
[2022-08-16] MEDS: MAGNESIUM HYDROX 2400MG/30ML ORAL SUSPENSION 30 ML CUP PO PRN (21:43)
[2022-08-17] MEDS: PRENATAL VITAMINS W/ FOLIC ACID TABLET (FP) PO SCH (10:14)
[2022-08-17] MEDS: ASPIRIN 81 MG CHEWABLE TABLETS PO SCH (10:14)
[2022-08-17] MEDS: VERAPAMIL HCL 120 MG E.R. TABLET PO SCH (11:00)
[2022-08-17] MEDS: MAGNESIUM HYDROX 2400MG/30ML ORAL SUSPENSION 30 ML CUP PO PRN (11:58)
[2022-08-17] MEDS: THIAMINE HCL 100 MG TABLET (FP) PO SCH (21:45)
[2022-08-17] MEDS: HALOPERIDOL 5 MG TABLET PO SCH (21:45)
[2022-08-17] MEDS: MIRTAZAPINE 15 MG TABLET (FP) PO SCH (21:45)
[2022-08-18] MEDS: ASPIRIN 81 MG CHEWABLE TABLETS PO SCH (10:11)
[2022-08-18] MEDS: VERAPAMIL HCL 120 MG E.R. TABLET PO SCH (10:11)
[2022-08-18] MEDS: PRENATAL VITAMINS W/ FOLIC ACID TABLET (FP) PO SCH (10:11)
[2022-08-18] MEDS: MAGNESIUM HYDROX 2400MG/30ML ORAL SUSPENSION 30 ML CUP PO PRN (10:13)
[2022-08-18] MEDS: THIAMINE HCL 100 MG TABLET (FP) PO SCH (21:18)
[2022-08-18] MEDS: MIRTAZAPINE 15 MG TABLET (FP) PO SCH (21:18)
[2022-08-18] MEDS: HALOPERIDOL 5 MG TABLET PO SCH (21:18)
[2022-08-19] MEDS: ASPIRIN 81 MG CHEWABLE TABLETS PO SCH (10:09)
[2022-08-19] MEDS: PRENATAL VITAMINS W/ FOLIC ACID TABLET (FP) PO SCH (10:09)
[2022-08-19] MEDS: VERAPAMIL HCL 120 MG E.R. TABLET PO SCH (10:10)
[2022-08-19] MEDS: MAGNESIUM HYDROX 2400MG/30ML ORAL SUSPENSION 30 ML CUP PO PRN (10:11)
[2022-08-19] MEDS: HALOPERIDOL 5 MG TABLET PO SCH (21:32)
[2022-08-19] MEDS: THIAMINE HCL 100 MG TABLET (FP) PO SCH (21:32)
[2022-08-19] MEDS: MIRTAZAPINE 15 MG TABLET (FP) PO SCH (21:32)
[2022-08-20] MEDS: VERAPAMIL HCL 120 MG E.R. TABLET PO SCH (09:55)
[2022-08-20] MEDS: PRENATAL VITAMINS W/ FOLIC ACID TABLET (FP) PO SCH (09:55)
[2022-08-20] MEDS: ASPIRIN 81 MG CHEWABLE TABLETS PO SCH (09:55)
[2022-08-20] MEDS: BACLOFEN 10 MG TABLET (FP) PO SCH ×2 (13:32→21:25)
[2022-08-20] MEDS: MIRTAZAPINE 15 MG TABLET (FP) PO SCH (21:25)
[2022-08-20] MEDS: THIAMINE HCL 100 MG TABLET (FP) PO SCH (21:25)
[2022-08-20] MEDS: HALOPERIDOL 5 MG TABLET PO SCH (21:25)
[2022-08-21] MEDS: BACLOFEN 10 MG TABLET (FP) PO SCH ×3 (06:17→21:27)
[2022-08-21] MEDS: PRENATAL VITAMINS W/ FOLIC ACID TABLET (FP) PO SCH (09:46)
[2022-08-21] MEDS: VERAPAMIL HCL 120 MG E.R. TABLET PO SCH (09:47)
[2022-08-21] MEDS: ASPIRIN 81 MG CHEWABLE TABLETS PO SCH (09:47)
[2022-08-21] MEDS: MIRTAZAPINE 15 MG TABLET (FP) PO SCH (21:27)
[2022-08-21] MEDS: THIAMINE HCL 100 MG TABLET (FP) PO SCH (21:27)
[2022-08-21] MEDS: HALOPERIDOL 5 MG TABLET PO SCH (21:27)
[2022-08-21] MEDS: ATORVASTATIN CA 80 MG TABLET (FP) PO SCH (21:28)
[2022-08-22] MEDS: BACLOFEN 10 MG TABLET (FP) PO SCH (06:05)
[2022-08-22] MEDS: ASPIRIN 81 MG CHEWABLE TABLETS PO SCH (09:38)
[2022-08-22] MEDS: PRENATAL VITAMINS W/ FOLIC ACID TABLET (FP) PO SCH (09:38)
[2022-08-22] MEDS: VERAPAMIL HCL 120 MG E.R. TABLET PO SCH (09:38)
[2022-08-22] MEDS ORDERED: ATORVASTATIN CA 40 MG TABLET (FP) ONE (18:35)
[2022-08-22] MEDS: THIAMINE HCL 100 MG TABLET (FP) PO SCH (21:25)
[2022-08-22] MEDS: MIRTAZAPINE 15 MG TABLET (FP) PO SCH (21:25)
[2022-08-22] MEDS: HALOPERIDOL 5 MG TABLET PO SCH (21:26)
[2022-08-22] MEDS: ATORVASTATIN CA 80 MG TABLET (FP) PO SCH (21:26)
[2022-08-23] MEDS: ASPIRIN 81 MG CHEWABLE TABLETS PO SCH (10:11)
[2022-08-23] MEDS: VERAPAMIL HCL 120 MG E.R. TABLET PO SCH (10:11)
[2022-08-23] MEDS: PRENATAL VITAMINS W/ FOLIC ACID TABLET (FP) PO SCH (10:11)
[2022-08-23] MEDS ORDERED: ATORVASTATIN CA 40 MG TABLET (FP) ONE (18:39)
[2022-08-23] MEDS: HALOPERIDOL 5 MG TABLET PO SCH (21:18)
[2022-08-23] MEDS: MIRTAZAPINE 15 MG TABLET (FP) PO SCH (21:18)
[2022-08-23] MEDS: ATORVASTATIN CA 80 MG TABLET (FP) PO SCH (21:18)
[2022-08-23] MEDS: THIAMINE HCL 100 MG TABLET (FP) PO SCH (21:18)
[2022-08-24] MEDS: PRENATAL VITAMINS W/ FOLIC ACID TABLET (FP) PO SCH (10:21)
[2022-08-24] MEDS: ASPIRIN 81 MG CHEWABLE TABLETS PO SCH (10:22)
[2022-08-24] MEDS: VERAPAMIL HCL 120 MG E.R. TABLET PO SCH (10:22)
[2022-08-24] MEDS ORDERED: ATORVASTATIN CA 40 MG TABLET (FP) ONE (18:21)
[2022-08-24] MEDS: MIRTAZAPINE 15 MG TABLET (FP) PO SCH (21:15)
[2022-08-24] MEDS: HALOPERIDOL 5 MG TABLET PO SCH (21:15)
[2022-08-24] MEDS: THIAMINE HCL 100 MG TABLET (FP) PO SCH (21:16)
[2022-08-24] MEDS: ATORVASTATIN CA 80 MG TABLET (FP) PO SCH (21:16)
[2022-08-25] MEDS: PRENATAL VITAMINS W/ FOLIC ACID TABLET (FP) PO SCH (10:30)
[2022-08-25] MEDS: ASPIRIN 81 MG CHEWABLE TABLETS PO SCH (10:31)
[2022-08-25] MEDS: VERAPAMIL HCL 120 MG E.R. TABLET PO SCH (10:31)
[2022-08-25] MEDS: MAGNESIUM HYDROX 2400MG/30ML ORAL SUSPENSION 30 ML CUP PO PRN (10:32)
[2022-08-25] MEDS ORDERED: ATORVASTATIN CA 40 MG TABLET (FP) ONE (20:52)
[2022-08-25] MEDS: THIAMINE HCL 100 MG TABLET (FP) PO SCH (21:55)
[2022-08-25] MEDS: ATORVASTATIN CA 80 MG TABLET (FP) PO SCH (21:55)
[2022-08-25] MEDS: MIRTAZAPINE 15 MG TABLET (FP) PO SCH ×2 (21:55→21:56)
[2022-08-25] MEDS: HALOPERIDOL 5 MG TABLET PO SCH (21:55)
[2022-08-26] MEDS: ASPIRIN 81 MG CHEWABLE TABLETS PO SCH (09:57)
[2022-08-26] MEDS: PRENATAL VITAMINS W/ FOLIC ACID TABLET (FP) PO SCH (09:57)
[2022-08-26] MEDS: VERAPAMIL HCL 120 MG E.R. TABLET PO SCH (09:57)
[2022-08-26] MEDS ORDERED: ATORVASTATIN CA 40 MG TABLET (FP) ONE (20:33)
[2022-08-26] MEDS: HALOPERIDOL 5 MG TABLET PO SCH (21:37)
[2022-08-26] MEDS: MIRTAZAPINE 15 MG TABLET (FP) PO SCH (21:37)
[2022-08-26] MEDS: THIAMINE HCL 100 MG TABLET (FP) PO SCH (21:38)
[2022-08-26] MEDS: ATORVASTATIN CA 80 MG TABLET (FP) PO SCH (21:38)
[2022-08-26] MEDS: MAGNESIUM HYDROX 2400MG/30ML ORAL SUSPENSION 30 ML CUP PO PRN (21:39)
[2022-08-27] MEDS: VERAPAMIL HCL 120 MG E.R. TABLET PO SCH (10:13)
[2022-08-27] MEDS: PRENATAL VITAMINS W/ FOLIC ACID TABLET (FP) PO SCH (10:13)
[2022-08-27] MEDS: ASPIRIN 81 MG CHEWABLE TABLETS PO SCH (10:13)
[2022-08-27] MEDS: MAGNESIUM HYDROX 2400MG/30ML ORAL SUSPENSION 30 ML CUP PO PRN (10:14)
[2022-08-27] MEDS ORDERED: ATORVASTATIN CA 40 MG TABLET (FP) ONE (18:47)
[2022-08-27] MEDS: ATORVASTATIN CA 80 MG TABLET (FP) PO SCH (21:18)
[2022-08-27] MEDS: HALOPERIDOL 5 MG TABLET PO SCH (21:18)
[2022-08-27] MEDS: MIRTAZAPINE 15 MG TABLET (FP) PO SCH (21:18)
[2022-08-27] MEDS: THIAMINE HCL 100 MG TABLET (FP) PO SCH (21:18)
[2022-08-28] MEDS: VERAPAMIL HCL 120 MG E.R. TABLET PO SCH (09:52)
[2022-08-28] MEDS: ASPIRIN 81 MG CHEWABLE TABLETS PO SCH (09:52)
[2022-08-28] MEDS: MAGNESIUM HYDROX 2400MG/30ML ORAL SUSPENSION 30 ML CUP PO PRN (09:52)
[2022-08-28] MEDS: PRENATAL VITAMINS W/ FOLIC ACID TABLET (FP) PO SCH (09:52)
[2022-08-28] MEDS ORDERED: ATORVASTATIN CA 40 MG TABLET (FP) ONE (18:39)
[2022-08-28] MEDS: THIAMINE HCL 100 MG TABLET (FP) PO SCH (21:33)
[2022-08-28] MEDS: ATORVASTATIN CA 80 MG TABLET (FP) PO SCH (21:33)
[2022-08-28] MEDS: HALOPERIDOL 5 MG TABLET PO SCH (21:33)
[2022-08-28] MEDS: MIRTAZAPINE 15 MG TABLET (FP) PO SCH (21:33)
[2022-08-29] MEDS: ASPIRIN 81 MG CHEWABLE TABLETS PO SCH (10:36)
[2022-08-29] MEDS: VERAPAMIL HCL 120 MG E.R. TABLET PO SCH (10:36)
[2022-08-29] MEDS: PRENATAL VITAMINS W/ FOLIC ACID TABLET (FP) PO SCH (10:36)
[2022-08-29] MEDS: MAGNESIUM HYDROX 2400MG/30ML ORAL SUSPENSION 30 ML CUP PO PRN (10:37)
[2022-08-29] MEDS ORDERED: ATORVASTATIN CA 40 MG TABLET (FP) ONE (18:32)
[2022-08-29] MEDS: HALOPERIDOL 5 MG TABLET PO SCH (21:28)
[2022-08-29] MEDS: ATORVASTATIN CA 80 MG TABLET (FP) PO SCH (21:28)
[2022-08-29] MEDS: MIRTAZAPINE 15 MG TABLET (FP) PO SCH (21:28)
[2022-08-29] MEDS: THIAMINE HCL 100 MG TABLET (FP) PO SCH (21:28)
[2022-08-30] MEDS: PRENATAL VITAMINS W/ FOLIC ACID TABLET (FP) PO SCH (09:44)
[2022-08-30] MEDS: ASPIRIN 81 MG CHEWABLE TABLETS PO SCH (09:45)
[2022-08-30] MEDS: VERAPAMIL HCL 120 MG E.R. TABLET PO SCH (09:45)
[2022-08-30] MEDS ORDERED: ATORVASTATIN CA 40 MG TABLET (FP) ONE (18:49)
[2022-08-30] MEDS: THIAMINE HCL 100 MG TABLET (FP) PO SCH (21:15)
[2022-08-30] MEDS: MIRTAZAPINE 15 MG TABLET (FP) PO SCH (21:15)
[2022-08-30] MEDS: MAGNESIUM HYDROX 2400MG/30ML ORAL SUSPENSION 30 ML CUP PO PRN (21:16)
[2022-08-30] MEDS: ATORVASTATIN CA 80 MG TABLET (FP) PO SCH (21:16)
[2022-08-30] MEDS: HALOPERIDOL 5 MG TABLET PO SCH (21:16)
[2022-08-31] MEDS: ASPIRIN 81 MG CHEWABLE TABLETS PO SCH (10:36)
[2022-08-31] MEDS: VERAPAMIL HCL 120 MG E.R. TABLET PO SCH (10:36)
[2022-08-31] MEDS: PRENATAL VITAMINS W/ FOLIC ACID TABLET (FP) PO SCH (10:36)
[2022-08-31] MEDS: MAGNESIUM HYDROX 2400MG/30ML ORAL SUSPENSION 30 ML CUP PO PRN (10:38)
[2022-08-31] MEDS ORDERED: ATORVASTATIN CA 40 MG TABLET (FP) ONE (20:43)
[2022-08-31] MEDS: MIRTAZAPINE 15 MG TABLET (FP) PO SCH (22:06)
[2022-08-31] MEDS: ATORVASTATIN CA 80 MG TABLET (FP) PO SCH (22:06)
[2022-08-31] MEDS: HALOPERIDOL 5 MG TABLET PO SCH (22:06)
[2022-08-31] MEDS: THIAMINE HCL 100 MG TABLET (FP) PO SCH (22:06)
[2022-09-01] MEDS: VERAPAMIL HCL 120 MG E.R. TABLET PO SCH (10:02)
[2022-09-01] MEDS: ASPIRIN 81 MG CHEWABLE TABLETS PO SCH (10:02)
[2022-09-01] MEDS: PRENATAL VITAMINS W/ FOLIC ACID TABLET (FP) PO SCH (10:02)
[2022-09-01] MEDS ORDERED: ATORVASTATIN CA 40 MG TABLET (FP) ONE (18:52)
[2022-09-01] MEDS: THIAMINE HCL 100 MG TABLET (FP) PO SCH (21:40)
[2022-09-01] MEDS: ATORVASTATIN CA 80 MG TABLET (FP) PO SCH (21:40)
[2022-09-01] MEDS: HALOPERIDOL 5 MG TABLET PO SCH (21:40)
[2022-09-01] MEDS: MIRTAZAPINE 15 MG TABLET (FP) PO SCH (21:40)
[2022-09-02] MEDS: PRENATAL VITAMINS W/ FOLIC ACID TABLET (FP) PO SCH (10:07)
[2022-09-02] MEDS: VERAPAMIL HCL 120 MG E.R. TABLET PO SCH (10:08)
[2022-09-02] MEDS: ASPIRIN 81 MG CHEWABLE TABLETS PO SCH (10:08)
[2022-09-02] MEDS: MAGNESIUM HYDROX 2400MG/30ML ORAL SUSPENSION 30 ML CUP PO PRN (10:09)
[2022-09-02] MEDS ORDERED: ATORVASTATIN CA 40 MG TABLET (FP) ONE (18:56)
[2022-09-02] MEDS: THIAMINE HCL 100 MG TABLET (FP) PO SCH (21:26)
[2022-09-02] MEDS: MIRTAZAPINE 15 MG TABLET (FP) PO SCH (21:26)
[2022-09-02] MEDS: ATORVASTATIN CA 80 MG TABLET (FP) PO SCH (21:26)
[2022-09-02] MEDS: HALOPERIDOL 5 MG TABLET PO SCH (21:26)
[2022-09-03 06:42] VITALS: RESP 18; TEMP 98.6
[2022-09-03] MEDS: PRENATAL VITAMINS W/ FOLIC ACID TABLET (FP) PO SCH (09:11)
[2022-09-03] MEDS: ASPIRIN 81 MG CHEWABLE TABLETS PO SCH (09:12)
[2022-09-03] MEDS: VERAPAMIL HCL 120 MG E.R. TABLET PO SCH (09:45)
[2022-09-03 13:12] VITALS: BP 100/69; PULSE 68
== END 2022-09-03 10:07 | disposition home or self-care (01) | DRG 895 ==
LOC: YASAS 12:09 → Y3N 14:52 → Y3W 08-16 12:53
PROVIDERS: ADMIT Allergy & Immunology; ATTEND Psychiatry & Neurology Psychiatry
PROC: HZ2ZZZZ Detoxification Services for Substance Abuse Treatment (ICD-10-PCS; 2022-08-11)
PROC: HZ42ZZZ Group Counseling for Substance Abuse Treatment, Cognitive-Behavioral (ICD-10-PCS; principal; 2022-08-16)
DX: F10.20 Alcohol dependence, uncomplicated (principal); F14.20 Cocaine dependence, uncomplicated; F25.1 Schizoaffective disorder, depressive type; G47.00 Insomnia, unspecified; I25.10 Atherosclerotic heart disease of native coronary artery without angina pectoris; I10 Essential (primary) hypertension; E11.9 Type 2 diabetes mellitus without complications; Z79.84 Long term (current) use of oral hypoglycemic drugs; R76.11 Nonspecific reaction to tuberculin skin test without active tuberculosis; Z59.01 Sheltered homelessness
CPT/HCPCS: 36415; 80053; 82962; 85027; 86780; 87389; 87811; C9803-CS; G0008; J0475; Q2036; U0003; U0005

== ENCOUNTER 2023-01-17 09:33 | Inpatient (IN) | payer OTHER ==
[2023-01-17 10:14] VITALS: BMI 26.6
[2023-01-17] MEDS ORDERED: BISMUTH SUBSALICYLATE 262 MG/15 ML BTL PO PRN (10:38)
[2023-01-17] MEDS ORDERED: POLYETHYLENE GLYCOL (HEALTHYLAX) 3350 17 GM PACKET PO PRN (10:38)
[2023-01-17] MEDS ORDERED: LOPERAMIDE HCL 2 MG CAPSULE PO PRN (10:38)
[2023-01-17] MEDS ORDERED: ACETAMINOPHEN 325 MG TABLET (FP) PO PRN (10:38)
[2023-01-17] MEDS ORDERED: IBUPROFEN 400 MG TABLET (FP) PO PRN (10:38)
[2023-01-17] MEDS ORDERED: hydrOXYzine PAMOATE 25 MG CAPSULE (FP) PO PRN (10:38)
[2023-01-17] MEDS ORDERED: METHOCARBAMOL 500 MG TABLET PO PRN (10:38)
[2023-01-17] MEDS ORDERED: ONDANSETRON *ODT* 4 MG TABLET SL PRN (10:38)
[2023-01-17] MEDS ORDERED: BENZONATATE 200 MG CAPSULE PO PRN (10:38)
[2023-01-17] MEDS ORDERED: DICYCLOMINE HCL 10 MG CAPSULE PO PRN (10:38)
[2023-01-17] MEDS ORDERED: IBUPROFEN 600 MG TABLET (FP) PO PRN (10:38)
[2023-01-17] MEDS ORDERED: guaiFENesin 600 MG TABLET.ER (FP) PO PRN (10:38)
[2023-01-17] MEDS ORDERED: MAG HYDROX/AL HYDROX/SIMETH 30 ML UNIT-DOSE CUP PO PRN (10:38)
[2023-01-17] MEDS ORDERED: MAGNESIUM HYDROX 2400MG/30ML ORAL SUSPENSION 30 ML CUP PO PRN (10:38)
[2023-01-17] MEDS ORDERED: BENZOCAINE/MENTHOL (CHLORASEPTIC ) LOZENGE MM PRN (10:38)
[2023-01-17 15:14] LABS: HEMATOCRIT 39.2 % (35.4-49); HEMOGLOBIN 13.4 GM/dL (11.7-16.9); MCH 30.9 pg (25.7-33.7); MCHC 34.2 g/dl (32.0-35.9); MEAN CELL VOLUME 90.4 fl (80-96); MEAN PLT VOLUME 6.3 fl (7.5-11.1); PLATELET COUNT 559 10^3/uL (134-434); RBC 4.33 M/mm3 (4.00-5.60); RDW 13.7 % (11.9-15.9); WHITE BLOOD COUNT 4.4 K/mm3 (4.0-10.0)
[2023-01-17 15:19] LABS: ALBUMIN 3.2 g/dl (3.4-5.0)
[2023-01-17 15:22] LABS: CALCIUM 9.3 mg/dL (8.5-10.1)
[2023-01-17 15:26] LABS: BILIRUBIN,TOTAL 0.9 mg/dL (0.2-1); CREATININE 1.3 mg/dL (0.55-1.3)
[2023-01-17 15:27] LABS: TOT PROT 7.6 g/dl (6.4-8.2)
[2023-01-17] MEDS: diazePAM 5 MG TABLET PO SCH ×2 (17:49→22:47)
[2023-01-17] MEDS ORDERED: MELATONIN 5 MG TABLETS PO SCH (22:00)
[2023-01-17] MEDS: THIAMINE HCL 100 MG TABLET (FP) PO SCH (22:46)
[2023-01-17] MEDS: MIRTAZAPINE 15 MG TABLET (FP) PO SCH (22:46)
[2023-01-17] MEDS: HALOPERIDOL 5 MG TABLET PO SCH (22:47)
[2023-01-18] MEDS: diazePAM 5 MG TABLET PO SCH ×4 (05:47→22:43)
[2023-01-18] MEDS ORDERED: DICYCLOMINE HCL 10 MG CAPSULE PO PRN (09:44)
[2023-01-18] MEDS: ASPIRIN 81 MG CHEWABLE TABLETS PO SCH (10:14)
[2023-01-18] MEDS: PRENATAL VITAMINS W/ FOLIC ACID TABLET (FP) PO SCH (10:14)
[2023-01-18] MEDS: ATORVASTATIN CA 80 MG TABLET (FP) PO SCH (22:42)
[2023-01-18] MEDS: THIAMINE HCL 100 MG TABLET (FP) PO SCH (22:43)
[2023-01-18] MEDS: MIRTAZAPINE 15 MG TABLET (FP) PO SCH (22:43)
[2023-01-18] MEDS: HALOPERIDOL 5 MG TABLET PO SCH (22:50)
[2023-01-19] MEDS: diazePAM 5 MG TABLET PO SCH ×3 (05:27→22:09)
[2023-01-19] MEDS: PRENATAL VITAMINS W/ FOLIC ACID TABLET (FP) PO SCH (10:17)
[2023-01-19] MEDS: ASPIRIN 81 MG CHEWABLE TABLETS PO SCH (10:17)
[2023-01-19] MEDS: MIRTAZAPINE 15 MG TABLET (FP) PO SCH (22:10)
[2023-01-19] MEDS: THIAMINE HCL 100 MG TABLET (FP) PO SCH (22:10)
[2023-01-19] MEDS: ATORVASTATIN CA 80 MG TABLET (FP) PO SCH (22:10)
[2023-01-19] MEDS: HALOPERIDOL 5 MG TABLET PO SCH (22:11)
[2023-01-20] MEDS ORDERED: diazePAM 5 MG TABLET PO ONE (06:00)
[2023-01-20] MEDS ORDERED: diazePAM 5 MG TABLET PO SCH (06:00)
[2023-01-20 09:32] VITALS: RESP 16
[2023-01-20] MEDS: PRENATAL VITAMINS W/ FOLIC ACID TABLET (FP) PO SCH (10:19)
[2023-01-20] MEDS: ASPIRIN 81 MG CHEWABLE TABLETS PO SCH (10:19)
[2023-01-20 10:20] VITALS: BP 104/65; PULSE 67; TEMP 97.3
[2023-01-21] MEDS ORDERED: diazePAM 5 MG TABLET PO ONE (06:00)
== END 2023-01-20 12:23 | disposition home or self-care (01) | DRG 897 ==
LOC: YASAS 09:33 → Y6N 11:09
PROVIDERS: ADMIT Allergy & Immunology; ATTEND Surgery
PROC: HZ2ZZZZ Detoxification Services for Substance Abuse Treatment (ICD-10-PCS; principal; 2023-01-17)
DX: F10.230 Alcohol dependence with withdrawal, uncomplicated (principal); F14.20 Cocaine dependence, uncomplicated; F19.282 Other psychoactive substance dependence with psychoactive substance-induced sleep disorder; F19.24 Other psychoactive substance dependence with psychoactive substance-induced mood disorder; F25.9 Schizoaffective disorder, unspecified; I25.10 Atherosclerotic heart disease of native coronary artery without angina pectoris; I10 Essential (primary) hypertension; E78.5 Hyperlipidemia, unspecified; E11.9 Type 2 diabetes mellitus without complications; R76.11 Nonspecific reaction to tuberculin skin test without active tuberculosis
CPT/HCPCS: 36415; 80053; 82962; 85027; 86780; 87811; 93005; 93010; C9803-CS; U0003; U0005

== ENCOUNTER 2023-02-25 11:03 | Inpatient (IN) | payer OTHER ==
[2023-02-25 11:32] VITALS: BMI 24.3
[2023-02-25] MEDS ORDERED: guaiFENesin 600 MG TABLET.ER (FP) PO PRN (13:31)
[2023-02-25] MEDS ORDERED: METHOCARBAMOL 500 MG TABLET PO PRN (13:31)
[2023-02-25] MEDS ORDERED: BENZONATATE 200 MG CAPSULE PO PRN (13:31)
[2023-02-25] MEDS ORDERED: BENZOCAINE/MENTHOL (CHLORASEPTIC ) LOZENGE MM PRN (13:31)
[2023-02-25] MEDS ORDERED: MAGNESIUM HYDROX 2400MG/30ML ORAL SUSPENSION 30 ML CUP PO PRN (13:31)
[2023-02-25] MEDS ORDERED: IBUPROFEN 400 MG TABLET (FP) PO PRN (13:31)
[2023-02-25] MEDS ORDERED: ACETAMINOPHEN 325 MG TABLET (FP) PO PRN (13:31)
[2023-02-25] MEDS ORDERED: BISMUTH SUBSALICYLATE 262 MG/15 ML BTL PO PRN (13:31)
[2023-02-25] MEDS ORDERED: IBUPROFEN 600 MG TABLET (FP) PO PRN (13:31)
[2023-02-25] MEDS ORDERED: MAG HYDROX/AL HYDROX/SIMETH 30 ML UNIT-DOSE CUP PO PRN (13:31)
[2023-02-25] MEDS ORDERED: hydrOXYzine PAMOATE 25 MG CAPSULE (FP) PO PRN (13:31)
[2023-02-25] MEDS ORDERED: POLYETHYLENE GLYCOL (HEALTHYLAX) 3350 17 GM PACKET PO PRN (13:31)
[2023-02-25] MEDS ORDERED: DICYCLOMINE HCL 10 MG CAPSULE PO PRN (13:31)
[2023-02-25] MEDS ORDERED: LOPERAMIDE HCL 2 MG CAPSULE PO PRN (13:31)
[2023-02-25] MEDS: PRENATAL VITAMINS W/ FOLIC ACID TABLET (FP) PO SCH (15:57)
[2023-02-25 17:27] LABS: HEMOGLOBIN 14.1 GM/dL (11.7-16.9); MCH 31.1 pg (25.7-33.7); MCHC 34.4 g/dl (32.0-35.9); MEAN CELL VOLUME 90.4 fl (80-96); MEAN PLT VOLUME 6.9 fl (7.5-11.1); PLATELET COUNT 326 10^3/uL (134-434); RBC 4.54 M/mm3 (4.00-5.60); RDW 14.8 % (11.9-15.9); WHITE BLOOD COUNT 4.6 K/mm3 (4.0-10.0)
[2023-02-25 17:57] LABS: ALBUMIN 3.7 g/dl (3.4-5.0); BLOOD UREA NITROGEN 10.8 mg/dL (7-18); CALCIUM 9.4 mg/dL (8.5-10.1)
[2023-02-25 18:00] LABS: CREATININE 1.4 mg/dL (0.55-1.3)
[2023-02-25 18:02] LABS: BILIRUBIN,TOTAL 1.1 mg/dL (0.2-1); TOT PROT 7.6 g/dl (6.4-8.2)
[2023-02-25] MEDS: THIAMINE HCL 100 MG TABLET (FP) PO SCH (22:16)
[2023-02-25] MEDS: MELATONIN 5 MG TABLETS PO SCH (22:16)
[2023-02-26] MEDS: PRENATAL VITAMINS W/ FOLIC ACID TABLET (FP) PO SCH (10:28)
[2023-02-26] MEDS ORDERED: LORazepam 1 MG TABLET PO PRN (13:06)
[2023-02-26] MEDS: LORazepam 2 MG TABLET PO SCH ×2 (17:34→22:38)
[2023-02-26] MEDS: MELATONIN 5 MG TABLETS PO SCH (22:37)
[2023-02-26] MEDS: THIAMINE HCL 100 MG TABLET (FP) PO SCH (22:37)
[2023-02-27] MEDS: LORazepam 2 MG TABLET PO SCH ×4 (05:51→22:18)
[2023-02-27] MEDS: PRENATAL VITAMINS W/ FOLIC ACID TABLET (FP) PO SCH (10:12)
[2023-02-27] MEDS: ATORVASTATIN CA 80 MG TABLET (FP) PO SCH (22:18)
[2023-02-27] MEDS: MELATONIN 5 MG TABLETS PO SCH (22:18)
[2023-02-27] MEDS: THIAMINE HCL 100 MG TABLET (FP) PO SCH (22:18)
[2023-02-28] MEDS: LORazepam 1 MG TABLET PO SCH ×4 (05:47→22:20)
[2023-02-28] MEDS: PRENATAL VITAMINS W/ FOLIC ACID TABLET (FP) PO SCH (10:44)
[2023-02-28] MEDS: ASPIRIN 81 MG CHEWABLE TABLETS PO SCH (10:44)
[2023-02-28] MEDS: MELATONIN 5 MG TABLETS PO SCH (22:20)
[2023-02-28] MEDS: THIAMINE HCL 100 MG TABLET (FP) PO SCH (22:20)
[2023-02-28] MEDS: ATORVASTATIN CA 80 MG TABLET (FP) PO SCH (22:20)
[2023-03-01] MEDS ORDERED: LORazepam 0.5 MG TABLET PO PRN
[2023-03-01] MEDS: LORazepam 0.5 MG TABLET PO SCH ×4 (05:46→22:56)
[2023-03-01] MEDS: PRENATAL VITAMINS W/ FOLIC ACID TABLET (FP) PO SCH (10:19)
[2023-03-01] MEDS: ASPIRIN 81 MG CHEWABLE TABLETS PO SCH (10:19)
[2023-03-01 12:08] LABS: CALCIUM 9.1 mg/dL (8.5-10.1)
[2023-03-01 12:09] LABS: BLOOD UREA NITROGEN 8.8 mg/dL (7-18)
[2023-03-01 12:12] LABS: CREATININE 0.7 mg/dL (0.55-1.3)
[2023-03-01] MEDS: MELATONIN 5 MG TABLETS PO SCH (22:56)
[2023-03-01] MEDS: THIAMINE HCL 100 MG TABLET (FP) PO SCH (22:56)
[2023-03-01] MEDS: ATORVASTATIN CA 80 MG TABLET (FP) PO SCH (22:56)
[2023-03-02] MEDS ORDERED: LORazepam 0.5 MG TABLET PO ONE (05:00)
[2023-03-02 10:02] VITALS: BP 115/70; PULSE 72; RESP 16; TEMP 98
[2023-03-02] MEDS: PRENATAL VITAMINS W/ FOLIC ACID TABLET (FP) PO SCH (10:36)
[2023-03-02] MEDS: ASPIRIN 81 MG CHEWABLE TABLETS PO SCH (10:36)
== END 2023-03-02 12:37 | disposition home or self-care (01) | DRG 897 ==
LOC: YASAS 11:03 → Y3N 13:31 → UNDOADMIN 14:59 → Y3N 14:59
PROVIDERS: ADMIT Allergy & Immunology; ATTEND Surgery
PROC: HZ2ZZZZ Detoxification Services for Substance Abuse Treatment (ICD-10-PCS; principal; 2023-02-25)
DX: F10.230 Alcohol dependence with withdrawal, uncomplicated (principal); F14.20 Cocaine dependence, uncomplicated; F13.20 Sedative, hypnotic or anxiolytic dependence, uncomplicated; F25.9 Schizoaffective disorder, unspecified; E78.5 Hyperlipidemia, unspecified; I25.10 Atherosclerotic heart disease of native coronary artery without angina pectoris; I10 Essential (primary) hypertension; E11.9 Type 2 diabetes mellitus without complications; R76.11 Nonspecific reaction to tuberculin skin test without active tuberculosis; Z87.891 Personal history of nicotine dependence
CPT/HCPCS: 36415; 80048; 80053; 85027; 86780; 87811; C9803-CS; U0003; U0005

== ENCOUNTER 2023-03-23 11:16 | Inpatient (IN) | payer OTHER ==
[2023-03-23 11:38] VITALS: BMI 26.5
[2023-03-23] MEDS ORDERED: chlordiazePOXIDE HCL 25 MG CAPSULE PO PRN (12:46)
[2023-03-23] MEDS ORDERED: MAGNESIUM HYDROX 2400MG/30ML ORAL SUSPENSION 30 ML CUP PO PRN (12:48)
[2023-03-23] MEDS ORDERED: DICYCLOMINE HCL 10 MG CAPSULE PO PRN (12:48)
[2023-03-23] MEDS ORDERED: NICOTINE 10 MG CARTRIDGE (INHALER) IH PRN (12:48)
[2023-03-23] MEDS ORDERED: IBUPROFEN 600 MG TABLET (FP) PO PRN (12:48)
[2023-03-23] MEDS ORDERED: LOPERAMIDE HCL 2 MG CAPSULE PO PRN (12:48)
[2023-03-23] MEDS ORDERED: ACETAMINOPHEN 325 MG TABLET (FP) PO PRN (12:48)
[2023-03-23] MEDS ORDERED: BISMUTH SUBSALICYLATE 524 MG/30 ML PO PRN (12:48)
[2023-03-23] MEDS ORDERED: ONDANSETRON *ODT* 4 MG TABLET SL PRN (12:48)
[2023-03-23] MEDS ORDERED: BENZOCAINE/MENTHOL (CHLORASEPTIC ) LOZENGE MM PRN (12:48)
[2023-03-23] MEDS ORDERED: IBUPROFEN 400 MG TABLET (FP) PO PRN (12:48)
[2023-03-23] MEDS ORDERED: MAG HYDROX/AL HYDROX/SIMETH 30 ML UNIT-DOSE CUP PO PRN (12:48)
[2023-03-23] MEDS ORDERED: POLYETHYLENE GLYCOL (HEALTHYLAX) 3350 17 GM PACKET PO PRN (12:48)
[2023-03-23] MEDS ORDERED: NALOXONE HCL 0.4 MG/ML VIAL IM PRN (12:48)
[2023-03-23] MEDS ORDERED: hydrOXYzine PAMOATE 25 MG CAPSULE (FP) PO PRN (12:48)
[2023-03-23] MEDS ORDERED: BENZONATATE 200 MG CAPSULE PO PRN (12:48)
[2023-03-23] MEDS ORDERED: guaiFENesin 600 MG TABLET.ER (FP) PO PRN (12:48)
[2023-03-23] MEDS ORDERED: METHOCARBAMOL 500 MG TABLET PO PRN (12:48)
[2023-03-23] MEDS ORDERED: NALOXONE HCL (KLOXXADO) 8 MG SPRAY NS PRN (12:48)
[2023-03-23] MEDS: chlordiazePOXIDE HCL 25 MG CAPSULE PO SCH ×2 (17:31→22:36)
[2023-03-23] MEDS: MELATONIN 5 MG TABLETS PO SCH (22:36)
[2023-03-23] MEDS: THIAMINE HCL 100 MG TABLET (FP) PO SCH (22:36)
[2023-03-23] MEDS ORDERED: ATORVASTATIN CA 40 MG TABLET (FP) ONE (22:37)
[2023-03-23] MEDS: ATORVASTATIN CA 80 MG TABLET (FP) PO SCH (22:37)
[2023-03-24] MEDS: chlordiazePOXIDE HCL 25 MG CAPSULE PO SCH ×4 (05:18→22:36)
[2023-03-24] MEDS: ASPIRIN 81 MG CHEWABLE TABLETS PO SCH (10:14)
[2023-03-24] MEDS: PRENATAL VITAMINS W/ FOLIC ACID TABLET (FP) PO SCH (10:14)
[2023-03-24 17:49] LABS: HEMATOCRIT 34.4 % (35.4-49); HEMOGLOBIN 11.7 GM/dL (11.7-16.9); MCH 30.9 pg (25.7-33.7); MCHC 34.2 g/dl (32.0-35.9); MEAN CELL VOLUME 90.5 fl (80-96); MEAN PLT VOLUME 6.3 fl (7.5-11.1); PLATELET COUNT 343 10^3/uL (134-434); RDW 14.9 % (11.9-15.9); WHITE BLOOD COUNT 4.5 K/mm3 (4.0-10.0)
[2023-03-24 18:00] LABS: POTASSIUM 4.6 mmol/L (3.5-5.1)
[2023-03-24 18:06] LABS: ALBUMIN 2.9 g/dl (3.4-5.0); BLOOD UREA NITROGEN 12.1 mg/dL (7-18); CALCIUM 8.7 mg/dL (8.5-10.1)
[2023-03-24 18:09] LABS: CREATININE 0.8 mg/dL (0.55-1.3)
[2023-03-24 18:11] LABS: TOT PROT 6.5 g/dl (6.4-8.2)
[2023-03-24 18:12] LABS: BILIRUBIN,TOTAL 0.5 mg/dL (0.2-1)
[2023-03-24] MEDS: MELATONIN 5 MG TABLETS PO SCH (22:35)
[2023-03-24] MEDS: ATORVASTATIN CA 80 MG TABLET (FP) PO SCH (22:35)
[2023-03-24] MEDS: THIAMINE HCL 100 MG TABLET (FP) PO SCH (22:35)
[2023-03-25] MEDS: chlordiazePOXIDE HCL 25 MG CAPSULE PO SCH ×4 (05:20→22:12)
[2023-03-25] MEDS: PRENATAL VITAMINS W/ FOLIC ACID TABLET (FP) PO SCH (10:09)
[2023-03-25] MEDS: ASPIRIN 81 MG CHEWABLE TABLETS PO SCH (10:09)
[2023-03-25] MEDS: MELATONIN 5 MG TABLETS PO SCH (22:11)
[2023-03-25] MEDS: ATORVASTATIN CA 80 MG TABLET (FP) PO SCH (22:11)
[2023-03-25] MEDS: THIAMINE HCL 100 MG TABLET (FP) PO SCH (22:11)
[2023-03-26] MEDS ORDERED: chlordiazePOXIDE HCL 10 MG CAPSULE PO PRN
[2023-03-26] MEDS: chlordiazePOXIDE HCL 10 MG CAPSULE PO SCH ×4 (05:35→22:28)
[2023-03-26] MEDS: ASPIRIN 81 MG CHEWABLE TABLETS PO SCH (10:11)
[2023-03-26] MEDS: PRENATAL VITAMINS W/ FOLIC ACID TABLET (FP) PO SCH (10:11)
[2023-03-26] MEDS: guaiFENesin 200 MG/10 ML 10 ML UNIT-DOSE CUPS PO PRN ×3 (11:04→22:30)
[2023-03-26 17:53] VITALS: RESP 18
[2023-03-26] MEDS: ATORVASTATIN CA 80 MG TABLET (FP) PO SCH (22:28)
[2023-03-26] MEDS: THIAMINE HCL 100 MG TABLET (FP) PO SCH (22:28)
[2023-03-26] MEDS: MELATONIN 5 MG TABLETS PO SCH (22:28)
[2023-03-27] MEDS: chlordiazePOXIDE HCL 10 MG CAPSULE PO SCH ×2 (05:31→17:52)
[2023-03-27] MEDS: PRENATAL VITAMINS W/ FOLIC ACID TABLET (FP) PO SCH (10:10)
[2023-03-27] MEDS: guaiFENesin 200 MG/10 ML 10 ML UNIT-DOSE CUPS PO PRN ×3 (10:10→22:22)
[2023-03-27] MEDS: ASPIRIN 81 MG CHEWABLE TABLETS PO SCH (10:10)
[2023-03-27] MEDS: ATORVASTATIN CA 80 MG TABLET (FP) PO SCH (22:20)
[2023-03-27] MEDS: THIAMINE HCL 100 MG TABLET (FP) PO SCH (22:20)
[2023-03-27] MEDS: MELATONIN 5 MG TABLETS PO SCH (22:21)
[2023-03-28] MEDS ORDERED: chlordiazePOXIDE HCL 10 MG CAPSULE PO ONE (05:00)
[2023-03-28] MEDS: guaiFENesin 200 MG/10 ML 10 ML UNIT-DOSE CUPS PO PRN ×2 (05:42→10:11)
[2023-03-28 09:57] VITALS: BP 127/85; PULSE 64; TEMP 96
[2023-03-28] MEDS: ASPIRIN 81 MG CHEWABLE TABLETS PO SCH (10:11)
[2023-03-28] MEDS: PRENATAL VITAMINS W/ FOLIC ACID TABLET (FP) PO SCH (10:11)
== END 2023-03-28 10:14 | disposition home or self-care (01) | DRG 897 ==
LOC: YASAS 11:16 → Y6N 13:12
PROVIDERS: ADMIT Allergy & Immunology; ATTEND Surgery
PROC: HZ2ZZZZ Detoxification Services for Substance Abuse Treatment (ICD-10-PCS; principal; 2023-03-23)
DX: F10.230 Alcohol dependence with withdrawal, uncomplicated (principal); F14.20 Cocaine dependence, uncomplicated; F25.1 Schizoaffective disorder, depressive type; E78.5 Hyperlipidemia, unspecified; I10 Essential (primary) hypertension; E11.9 Type 2 diabetes mellitus without complications
CPT/HCPCS: 36415; 80053; 85027; 86780; C9803-CS; U0003; U0005

== ENCOUNTER 2023-04-24 10:56 | Inpatient (IN) | payer OTHER ==
[2023-04-24 11:18] VITALS: BMI 25.2
[2023-04-24] MEDS ORDERED: METHOCARBAMOL 500 MG TABLET PO PRN (11:48)
[2023-04-24] MEDS ORDERED: MAGNESIUM HYDROX 2400MG/30ML ORAL SUSPENSION 30 ML CUP PO PRN (11:48)
[2023-04-24] MEDS ORDERED: guaiFENesin 600 MG TABLET.ER (FP) PO PRN (11:48)
[2023-04-24] MEDS ORDERED: LOPERAMIDE HCL 2 MG CAPSULE PO PRN (11:48)
[2023-04-24] MEDS ORDERED: POLYETHYLENE GLYCOL (HEALTHYLAX) 3350 17 GM PACKET PO PRN (11:48)
[2023-04-24] MEDS ORDERED: IBUPROFEN 600 MG TABLET (FP) PO PRN (11:48)
[2023-04-24] MEDS ORDERED: IBUPROFEN 400 MG TABLET (FP) PO PRN (11:48)
[2023-04-24] MEDS ORDERED: DICYCLOMINE HCL 10 MG CAPSULE PO PRN (11:48)
[2023-04-24] MEDS ORDERED: ONDANSETRON *ODT* 4 MG TABLET SL PRN (11:48)
[2023-04-24] MEDS ORDERED: NALOXONE HCL 0.4 MG/ML VIAL IM PRN (11:48)
[2023-04-24] MEDS ORDERED: BENZONATATE 200 MG CAPSULE PO PRN (11:48)
[2023-04-24] MEDS ORDERED: BENZOCAINE/MENTHOL (CHLORASEPTIC ) LOZENGE MM PRN (11:48)
[2023-04-24] MEDS ORDERED: MAG HYDROX/AL HYDROX/SIMETH 30 ML UNIT-DOSE CUP PO PRN (11:48)
[2023-04-24] MEDS ORDERED: hydrOXYzine PAMOATE 25 MG CAPSULE (FP) PO PRN (11:48)
[2023-04-24] MEDS ORDERED: NALOXONE HCL (KLOXXADO) 8 MG SPRAY NS PRN (11:48)
[2023-04-24] MEDS ORDERED: chlordiazePOXIDE HCL 25 MG CAPSULE PO PRN (11:48)
[2023-04-24] MEDS ORDERED: ACETAMINOPHEN 325 MG TABLET (FP) PO PRN (11:48)
[2023-04-24] MEDS ORDERED: chlordiazePOXIDE HCL 25 MG CAPSULE ONE (12:21)
[2023-04-24] MEDS: chlordiazePOXIDE HCL 25 MG CAPSULE PO SCH ×3 (12:25→22:17)
[2023-04-24 17:09] LABS: HEMATOCRIT 43.5 % (35.4-49); HEMOGLOBIN 14.7 GM/dL (11.7-16.9); MCHC 33.9 g/dl (32.0-35.9); MEAN CELL VOLUME 91.4 fl (80-96); MEAN PLT VOLUME 6.6 fl (7.5-11.1); PLATELET COUNT 306 10^3/uL (134-434); RBC 4.76 M/mm3 (4.00-5.60); RDW 15.2 % (11.9-15.9); WHITE BLOOD COUNT 5.1 K/mm3 (4.0-10.0)
[2023-04-24 17:10] LABS: POTASSIUM 3.9 mmol/L (3.5-5.1)
[2023-04-24 17:14] LABS: CALCIUM 9.5 mg/dL (8.5-10.1)
[2023-04-24 17:15] LABS: ALBUMIN 3.7 g/dl (3.4-5.0)
[2023-04-24 17:18] LABS: CREATININE 1.2 mg/dL (0.55-1.3)
[2023-04-24 17:20] LABS: BILIRUBIN,TOTAL 0.7 mg/dL (0.2-1); TOT PROT 7.8 g/dl (6.4-8.2)
[2023-04-24] MEDS: THIAMINE HCL 100 MG TABLET (FP) PO SCH (22:17)
[2023-04-24] MEDS: ATORVASTATIN CA 80 MG TABLET (FP) PO SCH (22:17)
[2023-04-24] MEDS: MELATONIN 5 MG TABLETS PO SCH (22:17)
[2023-04-25] MEDS: chlordiazePOXIDE HCL 25 MG CAPSULE PO SCH ×4 (05:27→22:46)
[2023-04-25] MEDS: PRENATAL VITAMINS W/ FOLIC ACID TABLET (FP) PO SCH (10:30)
[2023-04-25] MEDS: ASPIRIN 81 MG CHEWABLE TABLETS PO SCH (10:30)
[2023-04-25] MEDS: THIAMINE HCL 100 MG TABLET (FP) PO SCH (22:32)
[2023-04-25] MEDS: MIRTAZAPINE 15 MG TABLET (FP) PO SCH (22:33)
[2023-04-25] MEDS: ATORVASTATIN CA 80 MG TABLET (FP) PO SCH (22:33)
[2023-04-25] MEDS: HALOPERIDOL 5 MG TABLET PO SCH (22:33)
[2023-04-25] MEDS: MELATONIN 5 MG TABLETS PO SCH (22:46)
[2023-04-26] MEDS: chlordiazePOXIDE HCL 25 MG CAPSULE PO SCH ×4 (05:46→22:10)
[2023-04-26] MEDS: BISMUTH SUBSALICYLATE 262 MG/15 ML BTL PO PRN ×2 (07:49→10:27)
[2023-04-26] MEDS: PRENATAL VITAMINS W/ FOLIC ACID TABLET (FP) PO SCH (10:25)
[2023-04-26] MEDS: ASPIRIN 81 MG CHEWABLE TABLETS PO SCH (10:25)
[2023-04-26] MEDS: THIAMINE HCL 100 MG TABLET (FP) PO SCH (22:10)
[2023-04-26] MEDS: MIRTAZAPINE 15 MG TABLET (FP) PO SCH (22:10)
[2023-04-26] MEDS: HALOPERIDOL 5 MG TABLET PO SCH (22:10)
[2023-04-26] MEDS: ATORVASTATIN CA 80 MG TABLET (FP) PO SCH (22:10)
[2023-04-26] MEDS: MELATONIN 5 MG TABLETS PO SCH (22:10)
[2023-04-27] MEDS ORDERED: chlordiazePOXIDE HCL 10 MG CAPSULE PO PRN
[2023-04-27] MEDS: chlordiazePOXIDE HCL 10 MG CAPSULE PO SCH ×4 (05:52→22:43)
[2023-04-27] MEDS: PRENATAL VITAMINS W/ FOLIC ACID TABLET (FP) PO SCH (10:10)
[2023-04-27] MEDS: ASPIRIN 81 MG CHEWABLE TABLETS PO SCH (10:11)
[2023-04-27] MEDS: MIRTAZAPINE 15 MG TABLET (FP) PO SCH (22:43)
[2023-04-27] MEDS: MELATONIN 5 MG TABLETS PO SCH (22:43)
[2023-04-27] MEDS: ATORVASTATIN CA 80 MG TABLET (FP) PO SCH (22:43)
[2023-04-27] MEDS: HALOPERIDOL 5 MG TABLET PO SCH (22:43)
[2023-04-27] MEDS: THIAMINE HCL 100 MG TABLET (FP) PO SCH (22:43)
[2023-04-28] MEDS: chlordiazePOXIDE HCL 10 MG CAPSULE PO SCH ×2 (06:01→17:10)
[2023-04-28] MEDS: ASPIRIN 81 MG CHEWABLE TABLETS PO SCH (10:55)
[2023-04-28] MEDS: PRENATAL VITAMINS W/ FOLIC ACID TABLET (FP) PO SCH (10:55)
[2023-04-28] MEDS: MELATONIN 5 MG TABLETS PO SCH (22:38)
[2023-04-28] MEDS: ATORVASTATIN CA 80 MG TABLET (FP) PO SCH (22:38)
[2023-04-28] MEDS: THIAMINE HCL 100 MG TABLET (FP) PO SCH (22:39)
[2023-04-28] MEDS: HALOPERIDOL 5 MG TABLET PO SCH (22:39)
[2023-04-28] MEDS: MIRTAZAPINE 15 MG TABLET (FP) PO SCH (22:39)
[2023-04-29] MEDS ORDERED: chlordiazePOXIDE HCL 10 MG CAPSULE PO ONE (05:00)
[2023-04-29 06:53] VITALS: PULSE 72; RESP 18
[2023-04-29 09:40] VITALS: BP 104/68; TEMP 98
[2023-04-29] MEDS: ASPIRIN 81 MG CHEWABLE TABLETS PO SCH (11:18)
[2023-04-29] MEDS: PRENATAL VITAMINS W/ FOLIC ACID TABLET (FP) PO SCH (11:18)
== END 2023-04-29 13:33 | disposition home or self-care (01) | DRG 897 ==
LOC: YASAS 10:56 → Y6N 12:17
PROVIDERS: ADMIT Allergy & Immunology; ATTEND Surgery
PROC: HZ2ZZZZ Detoxification Services for Substance Abuse Treatment (ICD-10-PCS; principal; 2023-04-24)
DX: F13.230 Sedative, hypnotic or anxiolytic dependence with withdrawal, uncomplicated (principal); F14.20 Cocaine dependence, uncomplicated; F19.280 Other psychoactive substance dependence with psychoactive substance-induced anxiety disorder; F19.282 Other psychoactive substance dependence with psychoactive substance-induced sleep disorder; F25.1 Schizoaffective disorder, depressive type; F19.24 Other psychoactive substance dependence with psychoactive substance-induced mood disorder; E78.00 Pure hypercholesterolemia, unspecified; I10 Essential (primary) hypertension; E11.9 Type 2 diabetes mellitus without complications; R76.11 Nonspecific reaction to tuberculin skin test without active tuberculosis; W06.XXXA Fall from bed, initial encounter; Y92.230 Patient room in hospital as the place of occurrence of the external cause; Z87.891 Personal history of nicotine dependence
CPT/HCPCS: 36415; 80053; 83036; 85027; 86780; 87635; 87811

== ENCOUNTER 2023-05-07 09:28 | Inpatient (IN) | payer OTHER ==
[2023-05-07 09:55] VITALS: BMI 25.5
[2023-05-07] MEDS ORDERED: MAGNESIUM HYDROX 2400MG/30ML ORAL SUSPENSION 30 ML CUP PO PRN (10:29)
[2023-05-07] MEDS ORDERED: ACETAMINOPHEN 325 MG TABLET (FP) PO PRN (10:29)
[2023-05-07] MEDS ORDERED: guaiFENesin 600 MG TABLET.ER (FP) PO PRN (10:29)
[2023-05-07] MEDS ORDERED: LOPERAMIDE HCL 2 MG CAPSULE PO PRN (10:29)
[2023-05-07] MEDS ORDERED: NALOXONE HCL 0.4 MG/ML VIAL IM PRN (10:29)
[2023-05-07] MEDS ORDERED: BENZOCAINE/MENTHOL (CHLORASEPTIC ) LOZENGE MM PRN (10:29)
[2023-05-07] MEDS ORDERED: IBUPROFEN 400 MG TABLET (FP) PO PRN (10:29)
[2023-05-07] MEDS ORDERED: cloNIDine HCL 0.1 MG TABLET PO PRN (10:29)
[2023-05-07] MEDS ORDERED: METHOCARBAMOL 500 MG TABLET PO PRN (10:29)
[2023-05-07] MEDS ORDERED: NALOXONE HCL (KLOXXADO) 8 MG SPRAY NS PRN (10:29)
[2023-05-07] MEDS ORDERED: ONDANSETRON *ODT* 4 MG TABLET SL PRN (10:29)
[2023-05-07] MEDS ORDERED: DICYCLOMINE HCL 10 MG CAPSULE PO PRN (10:29)
[2023-05-07] MEDS ORDERED: BENZONATATE 200 MG CAPSULE PO PRN (10:29)
[2023-05-07] MEDS ORDERED: MAG HYDROX/AL HYDROX/SIMETH 30 ML UNIT-DOSE CUP PO PRN (10:29)
[2023-05-07] MEDS ORDERED: IBUPROFEN 600 MG TABLET (FP) PO PRN (10:29)
[2023-05-07] MEDS ORDERED: POLYETHYLENE GLYCOL (HEALTHYLAX) 3350 17 GM PACKET PO PRN (10:29)
[2023-05-07] MEDS ORDERED: methaDONE HCL 10 MG TABLET (FOR DETOX USE ONLY) PO ONE (11:30)
[2023-05-07] MEDS: MIRTAZAPINE 15 MG TABLET (FP) PO SCH (22:11)
[2023-05-07] MEDS: HALOPERIDOL 5 MG TABLET PO SCH (22:11)
[2023-05-07] MEDS: ATORVASTATIN CA 80 MG TABLET (FP) PO SCH (22:11)
[2023-05-07] MEDS: MELATONIN 5 MG TABLETS PO SCH (22:11)
[2023-05-07] MEDS: THIAMINE HCL 100 MG TABLET (FP) PO SCH (22:11)
[2023-05-08] MEDS: ASPIRIN 81 MG CHEWABLE TABLETS PO SCH (10:24)
[2023-05-08] MEDS: PRENATAL VITAMINS W/ FOLIC ACID TABLET (FP) PO SCH (10:26)
[2023-05-08 11:36] LABS: HEMATOCRIT 39.6 % (35.4-49); HEMOGLOBIN 13.3 GM/dL (11.7-16.9); MCH 30.6 pg (25.7-33.7); MCHC 33.7 g/dl (32.0-35.9); MEAN PLT VOLUME 6.5 fl (7.5-11.1); PLATELET COUNT 277 10^3/uL (134-434); RBC 4.35 M/mm3 (4.00-5.60); RDW 14.7 % (11.9-15.9); WHITE BLOOD COUNT 5.8 K/mm3 (4.0-10.0)
[2023-05-08 11:47] LABS: POTASSIUM 3.7 mmol/L (3.5-5.1)
[2023-05-08 11:56] LABS: BILIRUBIN,TOTAL 0.4 mg/dL (0.2-1)
[2023-05-08 11:57] LABS: BLOOD UREA NITROGEN 8.6 mg/dL (7-18); CALCIUM 9.5 mg/dL (8.5-10.1)
[2023-05-08 11:58] LABS: ALBUMIN 3.4 g/dl (3.4-5.0); CREATININE 0.9 mg/dL (0.55-1.3)
[2023-05-08] MEDS: VERAPAMIL HCL 120 MG E.R. TABLET PO SCH (12:52)
[2023-05-08] MEDS: ATORVASTATIN CA 80 MG TABLET (FP) PO SCH (22:29)
[2023-05-08] MEDS: HALOPERIDOL 5 MG TABLET PO SCH (22:29)
[2023-05-08] MEDS: MIRTAZAPINE 15 MG TABLET (FP) PO SCH (22:29)
[2023-05-08] MEDS: MELATONIN 5 MG TABLETS PO SCH (22:29)
[2023-05-08] MEDS: THIAMINE HCL 100 MG TABLET (FP) PO SCH (22:30)
[2023-05-09] MEDS ORDERED: methaDONE HCL 10 MG TABLET (FOR DETOX USE ONLY) PO ONE (10:00)
[2023-05-09] MEDS: ASPIRIN 81 MG CHEWABLE TABLETS PO SCH (10:38)
[2023-05-09] MEDS: PRENATAL VITAMINS W/ FOLIC ACID TABLET (FP) PO SCH (10:39)
[2023-05-09] MEDS: VERAPAMIL HCL 120 MG E.R. TABLET PO SCH (10:39)
[2023-05-09] MEDS: BISMUTH SUBSALICYLATE 524 MG/30 ML PO PRN ×2 (15:31→16:49)
[2023-05-09] MEDS: MELATONIN 5 MG TABLETS PO SCH (22:52)
[2023-05-09] MEDS: ATORVASTATIN CA 80 MG TABLET (FP) PO SCH (22:52)
[2023-05-09] MEDS: MIRTAZAPINE 15 MG TABLET (FP) PO SCH (22:52)
[2023-05-09] MEDS: HALOPERIDOL 5 MG TABLET PO SCH (22:52)
[2023-05-09] MEDS: THIAMINE HCL 100 MG TABLET (FP) PO SCH (22:52)
[2023-05-10] MEDS: VERAPAMIL HCL 120 MG E.R. TABLET PO SCH (10:30)
[2023-05-10] MEDS: PRENATAL VITAMINS W/ FOLIC ACID TABLET (FP) PO SCH (10:31)
[2023-05-10] MEDS: ASPIRIN 81 MG CHEWABLE TABLETS PO SCH (10:31)
[2023-05-10] MEDS: MELATONIN 5 MG TABLETS PO SCH (22:50)
[2023-05-10] MEDS: ATORVASTATIN CA 80 MG TABLET (FP) PO SCH (22:50)
[2023-05-10] MEDS: HALOPERIDOL 5 MG TABLET PO SCH (22:50)
[2023-05-10] MEDS: THIAMINE HCL 100 MG TABLET (FP) PO SCH (22:50)
[2023-05-10] MEDS: MIRTAZAPINE 15 MG TABLET (FP) PO SCH (22:51)
[2023-05-10] MEDS: BISMUTH SUBSALICYLATE 524 MG/30 ML PO PRN (22:53)
[2023-05-11] MEDS: BISMUTH SUBSALICYLATE 524 MG/30 ML PO PRN ×3 (06:59→16:55)
[2023-05-11] MEDS ORDERED: methaDONE HCL 10 MG TABLET (FOR DETOX USE ONLY) PO ONE (10:00)
[2023-05-11] MEDS: ASPIRIN 81 MG CHEWABLE TABLETS PO SCH (10:47)
[2023-05-11] MEDS: VERAPAMIL HCL 120 MG E.R. TABLET PO SCH (10:47)
[2023-05-11] MEDS: PRENATAL VITAMINS W/ FOLIC ACID TABLET (FP) PO SCH (10:47)
[2023-05-11] MEDS ORDERED: hydrOXYzine PAMOATE 25 MG CAPSULE (FP) PO PRN (16:16)
[2023-05-11] MEDS: MIRTAZAPINE 15 MG TABLET (FP) PO SCH (23:01)
[2023-05-11] MEDS: MELATONIN 5 MG TABLETS PO SCH (23:01)
[2023-05-11] MEDS: THIAMINE HCL 100 MG TABLET (FP) PO SCH (23:01)
[2023-05-11] MEDS: HALOPERIDOL 5 MG TABLET PO SCH (23:01)
[2023-05-11] MEDS: ATORVASTATIN CA 80 MG TABLET (FP) PO SCH (23:01)
[2023-05-12 09:24] VITALS: BP 116/69; PULSE 66; RESP 18; TEMP 97.4
[2023-05-12] MEDS: ASPIRIN 81 MG CHEWABLE TABLETS PO SCH (10:27)
[2023-05-12] MEDS: VERAPAMIL HCL 120 MG E.R. TABLET PO SCH (10:27)
[2023-05-12] MEDS: PRENATAL VITAMINS W/ FOLIC ACID TABLET (FP) PO SCH (10:27)
== END 2023-05-12 11:26 | disposition home or self-care (01) | DRG 897 ==
LOC: YASAS 09:28 → Y3N 10:44
PROVIDERS: ADMIT Allergy & Immunology; ATTEND Surgery
PROC: HZ2ZZZZ Detoxification Services for Substance Abuse Treatment (ICD-10-PCS; principal; 2023-05-07)
DX: F11.23 Opioid dependence with withdrawal (principal); F14.20 Cocaine dependence, uncomplicated; F25.9 Schizoaffective disorder, unspecified; F41.9 Anxiety disorder, unspecified; F32.A Depression, unspecified; I25.10 Atherosclerotic heart disease of native coronary artery without angina pectoris; I10 Essential (primary) hypertension; E78.5 Hyperlipidemia, unspecified; G47.00 Insomnia, unspecified; R76.11 Nonspecific reaction to tuberculin skin test without active tuberculosis; Z87.891 Personal history of nicotine dependence
CPT/HCPCS: 36415; 71046-TC-FY; 80053; 85027; 86780; 87635

== ENCOUNTER 2023-06-17 08:35 | Inpatient (IN) | payer OTHER ==
[2023-06-17 09:17] VITALS: BMI 25.1
[2023-06-17] MEDS ORDERED: POLYETHYLENE GLYCOL (HEALTHYLAX) 3350 17 GM PACKET PO PRN (10:09)
[2023-06-17] MEDS ORDERED: IBUPROFEN 400 MG TABLET (FP) PO PRN (10:09)
[2023-06-17] MEDS ORDERED: ONDANSETRON *ODT* 4 MG TABLET SL PRN (10:09)
[2023-06-17] MEDS ORDERED: LOPERAMIDE HCL 2 MG CAPSULE PO PRN (10:09)
[2023-06-17] MEDS ORDERED: BISMUTH SUBSALICYLATE 262 MG/15 ML BTL PO PRN (10:09)
[2023-06-17] MEDS ORDERED: ACETAMINOPHEN 325 MG TABLET (FP) PO PRN (10:09)
[2023-06-17] MEDS ORDERED: METHOCARBAMOL 500 MG TABLET PO PRN (10:09)
[2023-06-17] MEDS ORDERED: MAG HYDROX/AL HYDROX/SIMETH 30 ML UNIT-DOSE CUP PO PRN (10:09)
[2023-06-17] MEDS ORDERED: IBUPROFEN 600 MG TABLET (FP) PO PRN (10:09)
[2023-06-17] MEDS ORDERED: BENZOCAINE/MENTHOL (CHLORASEPTIC ) LOZENGE MM PRN (10:09)
[2023-06-17] MEDS ORDERED: NALOXONE HCL 0.4 MG/ML VIAL IM PRN (10:09)
[2023-06-17] MEDS ORDERED: guaiFENesin 600 MG TABLET.ER (FP) PO PRN (10:09)
[2023-06-17] MEDS ORDERED: MAGNESIUM HYDROX 2400MG/30ML ORAL SUSPENSION 30 ML CUP PO PRN (10:09)
[2023-06-17] MEDS ORDERED: BENZONATATE 200 MG CAPSULE PO PRN (10:09)
[2023-06-17] MEDS ORDERED: NALOXONE HCL (KLOXXADO) 8 MG SPRAY NS PRN (10:09)
[2023-06-17] MEDS: INSULIN SLIDING SCALE (NOVOLOG) 1 VIAL SQ SCH (17:23)
[2023-06-17] MEDS ORDERED: HALOPERIDOL 5 MG TABLET PO ONE (22:53)
[2023-06-17] MEDS ORDERED: MIRTAZAPINE 15 MG TABLET (FP) PO ONE (22:53)
[2023-06-17] MEDS: MELATONIN 5 MG TABLETS PO SCH (23:00)
[2023-06-17] MEDS: THIAMINE HCL 100 MG TABLET (FP) PO SCH (23:00)
[2023-06-18] MEDS: INSULIN SLIDING SCALE (NOVOLOG) 1 VIAL SQ SCH (07:18)
[2023-06-18] MEDS ORDERED: LORazepam 1 MG TABLET PO PRN (09:24)
[2023-06-18] MEDS: PRENATAL VITAMINS W/ FOLIC ACID TABLET (FP) PO SCH (10:17)
[2023-06-18] MEDS: ASPIRIN 81 MG CHEWABLE TABLETS PO SCH (10:17)
[2023-06-18 10:18] LABS: HEMATOCRIT 39.8 % (35.4-49); HEMOGLOBIN 13.7 GM/dL (11.7-16.9); MCH 31.1 pg (25.7-33.7); MCHC 34.5 g/dl (32.0-35.9); MEAN PLT VOLUME 6.6 fl (7.5-11.1); PLATELET COUNT 313 10^3/uL (134-434); RBC 4.42 M/mm3 (4.00-5.60); RDW 14.3 % (11.9-15.9); WHITE BLOOD COUNT 5.1 K/mm3 (4.0-10.0)
[2023-06-18] MEDS: LORazepam 1 MG TABLET PO SCH ×3 (10:18→22:21)
[2023-06-18 10:30] LABS: POTASSIUM 3.7 mmol/L (3.5-5.1)
[2023-06-18 10:32] LABS: ALBUMIN 3.7 g/dl (3.4-5.0); CALCIUM 8.6 mg/dL (8.5-10.1)
[2023-06-18 10:33] LABS: BLOOD UREA NITROGEN 7.1 mg/dL (7-18)
[2023-06-18 10:36] LABS: CREATININE 0.9 mg/dL (0.55-1.3)
[2023-06-18 10:37] LABS: TOT PROT 7.2 g/dl (6.4-8.2)
[2023-06-18 10:38] LABS: BILIRUBIN,TOTAL 1.3 mg/dL (0.2-1)
[2023-06-18] MEDS: MELATONIN 5 MG TABLETS PO SCH (22:19)
[2023-06-18] MEDS: THIAMINE HCL 100 MG TABLET (FP) PO SCH (22:19)
[2023-06-19] MEDS: LORazepam 0.5 MG TABLET PO SCH ×4 (05:21→22:10)
[2023-06-19] MEDS: ASPIRIN 81 MG CHEWABLE TABLETS PO SCH (10:09)
[2023-06-19] MEDS: PRENATAL VITAMINS W/ FOLIC ACID TABLET (FP) PO SCH (10:09)
[2023-06-19 13:09] LABS: CHOLESTEROL 171 mg/dL (50-200)
[2023-06-19 13:10] LABS: LDL CHOLESTEROL (ONLY SJRH) 92 mg/dL (5-100)
[2023-06-19 13:13] LABS: HDL CHOLESTEROL 60 mg/dL (40-60)
[2023-06-19] MEDS: MELATONIN 5 MG TABLETS PO SCH (22:10)
[2023-06-19] MEDS: THIAMINE HCL 100 MG TABLET (FP) PO SCH (22:10)
[2023-06-20] MEDS ORDERED: LORazepam 0.5 MG TABLET PO ONE (05:00)
[2023-06-20] MEDS: ASPIRIN 81 MG CHEWABLE TABLETS PO SCH (10:18)
[2023-06-20] MEDS: PRENATAL VITAMINS W/ FOLIC ACID TABLET (FP) PO SCH (10:18)
[2023-06-20 13:41] VITALS: BP 112/68; PULSE 71; RESP 17; TEMP 97.8
[2023-06-20] MEDS ORDERED: MIRTAZAPINE 15 MG TABLET (FP) PO SCH (22:00)
[2023-06-20] MEDS ORDERED: HALOPERIDOL 5 MG TABLET PO SCH (22:00)
== END 2023-06-20 14:01 | disposition other institution (70) | DRG 897 ==
LOC: YASAS 08:35 → Y6N 10:40
PROVIDERS: ADMIT Allergy & Immunology; ATTEND Allergy & Immunology
PROC: HZ2ZZZZ Detoxification Services for Substance Abuse Treatment (ICD-10-PCS; principal; 2023-06-17)
DX: F10.230 Alcohol dependence with withdrawal, uncomplicated (principal); F14.20 Cocaine dependence, uncomplicated; F19.282 Other psychoactive substance dependence with psychoactive substance-induced sleep disorder; F25.1 Schizoaffective disorder, depressive type; F19.24 Other psychoactive substance dependence with psychoactive substance-induced mood disorder; I25.84 Coronary atherosclerosis due to calcified coronary lesion; I10 Essential (primary) hypertension; E78.5 Hyperlipidemia, unspecified; E11.9 Type 2 diabetes mellitus without complications; R76.11 Nonspecific reaction to tuberculin skin test without active tuberculosis; Z96.0 Presence of urogenital implants; Z87.891 Personal history of nicotine dependence
CPT/HCPCS: 36415; 80053; 80061; 82962; 85027; 86780; 87635; 87811

== ENCOUNTER 2023-06-20 14:10 | Inpatient (IN) | payer OTHER ==
[~2023-06-20 14:10] MED LIST: ACETAMINOPHEN 325 MG TABLET (FP) PO PRN; AMMONIUM LACTATE 12% LOTION 225 GM BOTTLE TP PRN; BENZOCAINE/MENTHOL (CHLORASEPTIC ) LOZENGE MM PRN; BENZONATATE 200 MG CAPSULE PO PRN; COLLOIDAL OATMEAL 1 BAR EACH TP PRN; IBUPROFEN 400 MG TABLET (FP) PO PRN; IBUPROFEN 600 MG TABLET (FP) PO PRN; LOPERAMIDE HCL 2 MG CAPSULE PO PRN; MAG HYDROX/AL HYDROX/SIMETH 30 ML UNIT-DOSE CUP PO PRN; MAGNESIUM HYDROX 2400MG/30ML ORAL SUSPENSION 30 ML CUP PO PRN; METHOCARBAMOL 500 MG TABLET PO PRN; NICOTINE 7 MG/24 HOURS TOPICAL PATCH TD PRN; NICOTINE POLACRILEX 2 MG GUM BUC PRN; POLYETHYLENE GLYCOL (HEALTHYLAX) 3350 17 GM PACKET PO PRN; guaiFENesin 600 MG TABLET.ER (FP) PO PRN; hydrOXYzine PAMOATE 25 MG CAPSULE (FP) PO PRN
[2023-06-20] MEDS: MELATONIN 5 MG TABLETS PO SCH (21:22)
[2023-06-20] MEDS: THIAMINE HCL 100 MG TABLET (FP) PO SCH (21:22)
[2023-06-20] MEDS: HALOPERIDOL 5 MG TABLET PO SCH (21:23)
[2023-06-20] MEDS ORDERED: ATORVASTATIN CA 40 MG TABLET (FP) ONE (21:23)
[2023-06-20] MEDS: ATORVASTATIN CA 80 MG TABLET (FP) PO SCH (21:23)
[2023-06-20] MEDS: MIRTAZAPINE 15 MG TABLET (FP) PO SCH (21:23)
[2023-06-21] MEDS: ASPIRIN 81 MG CHEWABLE TABLETS PO SCH (09:58)
[2023-06-21] MEDS: PRENATAL VITAMINS W/ FOLIC ACID TABLET (FP) PO SCH (09:58)
[2023-06-21] MEDS: VERAPAMIL HCL 120 MG E.R. TABLET PO SCH (09:58)
[2023-06-21] MEDS: THIAMINE HCL 100 MG TABLET (FP) PO SCH (21:38)
[2023-06-21] MEDS: MELATONIN 5 MG TABLETS PO SCH (21:39)
[2023-06-21] MEDS: MIRTAZAPINE 15 MG TABLET (FP) PO SCH (21:39)
[2023-06-21] MEDS: HALOPERIDOL 5 MG TABLET PO SCH (21:39)
[2023-06-21] MEDS: ATORVASTATIN CA 80 MG TABLET (FP) PO SCH (21:39)
[2023-06-22] MEDS: VERAPAMIL HCL 120 MG E.R. TABLET PO SCH (09:32)
[2023-06-22] MEDS: PRENATAL VITAMINS W/ FOLIC ACID TABLET (FP) PO SCH (09:32)
[2023-06-22] MEDS: ASPIRIN 81 MG CHEWABLE TABLETS PO SCH (09:32)
[2023-06-22] MEDS ORDERED: ATORVASTATIN CA 40 MG TABLET (FP) ONE (18:45)
[2023-06-22] MEDS: MELATONIN 5 MG TABLETS PO SCH (21:33)
[2023-06-22] MEDS: MIRTAZAPINE 15 MG TABLET (FP) PO SCH (21:33)
[2023-06-22] MEDS: THIAMINE HCL 100 MG TABLET (FP) PO SCH (21:33)
[2023-06-22] MEDS: ATORVASTATIN CA 80 MG TABLET (FP) PO SCH (21:33)
[2023-06-22] MEDS: HALOPERIDOL 5 MG TABLET PO SCH (21:33)
[2023-06-23] MEDS: PRENATAL VITAMINS W/ FOLIC ACID TABLET (FP) PO SCH (09:11)
[2023-06-23] MEDS: VERAPAMIL HCL 120 MG E.R. TABLET PO SCH (09:12)
[2023-06-23] MEDS: ASPIRIN 81 MG CHEWABLE TABLETS PO SCH (09:47)
[2023-06-23] MEDS ORDERED: ATORVASTATIN CA 40 MG TABLET (FP) ONE (18:44)
[2023-06-23] MEDS: ATORVASTATIN CA 80 MG TABLET (FP) PO SCH (21:06)
[2023-06-23] MEDS: HALOPERIDOL 5 MG TABLET PO SCH (21:06)
[2023-06-23] MEDS: MELATONIN 5 MG TABLETS PO SCH (21:06)
[2023-06-23] MEDS: THIAMINE HCL 100 MG TABLET (FP) PO SCH (21:06)
[2023-06-23] MEDS: MIRTAZAPINE 15 MG TABLET (FP) PO SCH (21:06)
[2023-06-24] MEDS: PRENATAL VITAMINS W/ FOLIC ACID TABLET (FP) PO SCH (09:59)
[2023-06-24] MEDS: ASPIRIN 81 MG CHEWABLE TABLETS PO SCH (10:00)
[2023-06-24] MEDS: VERAPAMIL HCL 120 MG E.R. TABLET PO SCH (10:00)
[2023-06-24] MEDS: MIRTAZAPINE 15 MG TABLET (FP) PO SCH (21:19)
[2023-06-24] MEDS: ATORVASTATIN CA 80 MG TABLET (FP) PO SCH (21:19)
[2023-06-24] MEDS: THIAMINE HCL 100 MG TABLET (FP) PO SCH (21:19)
[2023-06-24] MEDS: HALOPERIDOL 5 MG TABLET PO SCH (21:19)
[2023-06-24] MEDS: MELATONIN 5 MG TABLETS PO SCH (21:19)
[2023-06-25] MEDS: PRENATAL VITAMINS W/ FOLIC ACID TABLET (FP) PO SCH (09:32)
[2023-06-25] MEDS: ASPIRIN 81 MG CHEWABLE TABLETS PO SCH (09:32)
[2023-06-25] MEDS: VERAPAMIL HCL 120 MG E.R. TABLET PO SCH (09:33)
[2023-06-25] MEDS ORDERED: ATORVASTATIN CA 40 MG TABLET (FP) ONE (18:43)
[2023-06-25] MEDS: HALOPERIDOL 5 MG TABLET PO SCH (21:20)
[2023-06-25] MEDS: ATORVASTATIN CA 80 MG TABLET (FP) PO SCH (21:20)
[2023-06-25] MEDS: THIAMINE HCL 100 MG TABLET (FP) PO SCH (21:20)
[2023-06-25] MEDS: MIRTAZAPINE 15 MG TABLET (FP) PO SCH (21:20)
[2023-06-25] MEDS: MELATONIN 5 MG TABLETS PO SCH (21:20)
[2023-06-26] MEDS: VERAPAMIL HCL 120 MG E.R. TABLET PO SCH (10:07)
[2023-06-26] MEDS: PRENATAL VITAMINS W/ FOLIC ACID TABLET (FP) PO SCH (10:07)
[2023-06-26] MEDS: ASPIRIN 81 MG CHEWABLE TABLETS PO SCH (10:07)
[2023-06-26] MEDS ORDERED: ATORVASTATIN CA 40 MG TABLET (FP) ONE (18:48)
[2023-06-26] MEDS: MELATONIN 5 MG TABLETS PO SCH (21:09)
[2023-06-26] MEDS: THIAMINE HCL 100 MG TABLET (FP) PO SCH (21:09)
[2023-06-26] MEDS: MIRTAZAPINE 15 MG TABLET (FP) PO SCH (21:09)
[2023-06-26] MEDS: HALOPERIDOL 5 MG TABLET PO SCH (21:09)
[2023-06-26] MEDS: ATORVASTATIN CA 80 MG TABLET (FP) PO SCH (21:10)
[2023-06-27] MEDS: ASPIRIN 81 MG CHEWABLE TABLETS PO SCH (09:44)
[2023-06-27] MEDS: PRENATAL VITAMINS W/ FOLIC ACID TABLET (FP) PO SCH (09:45)
[2023-06-27] MEDS: VERAPAMIL HCL 120 MG E.R. TABLET PO SCH (09:45)
[2023-06-27] MEDS ORDERED: ATORVASTATIN CA 40 MG TABLET (FP) ONE (18:36)
[2023-06-27] MEDS: THIAMINE HCL 100 MG TABLET (FP) PO SCH (21:09)
[2023-06-27] MEDS: ATORVASTATIN CA 80 MG TABLET (FP) PO SCH (21:09)
[2023-06-27] MEDS: MIRTAZAPINE 15 MG TABLET (FP) PO SCH (21:09)
[2023-06-27] MEDS: HALOPERIDOL 5 MG TABLET PO SCH (21:09)
[2023-06-27] MEDS: MELATONIN 5 MG TABLETS PO SCH (21:09)
[2023-06-28] MEDS: VERAPAMIL HCL 120 MG E.R. TABLET PO SCH (10:12)
[2023-06-28] MEDS: PRENATAL VITAMINS W/ FOLIC ACID TABLET (FP) PO SCH (10:12)
[2023-06-28] MEDS: ASPIRIN 81 MG CHEWABLE TABLETS PO SCH (10:13)
[2023-06-28] MEDS ORDERED: ATORVASTATIN CA 40 MG TABLET (FP) ONE (18:36)
[2023-06-28] MEDS: HALOPERIDOL 5 MG TABLET PO SCH (21:10)
[2023-06-28] MEDS: THIAMINE HCL 100 MG TABLET (FP) PO SCH (21:10)
[2023-06-28] MEDS: MIRTAZAPINE 15 MG TABLET (FP) PO SCH (21:10)
[2023-06-28] MEDS: ATORVASTATIN CA 80 MG TABLET (FP) PO SCH (21:10)
[2023-06-28] MEDS: MELATONIN 5 MG TABLETS PO SCH (21:10)
[2023-06-29] MEDS: PRENATAL VITAMINS W/ FOLIC ACID TABLET (FP) PO SCH (09:30)
[2023-06-29] MEDS: VERAPAMIL HCL 120 MG E.R. TABLET PO SCH (09:30)
[2023-06-29] MEDS: ASPIRIN 81 MG CHEWABLE TABLETS PO SCH (09:31)
[2023-06-29] MEDS: HALOPERIDOL 5 MG TABLET PO SCH (21:43)
[2023-06-29] MEDS: MIRTAZAPINE 15 MG TABLET (FP) PO SCH (21:43)
[2023-06-29] MEDS: THIAMINE HCL 100 MG TABLET (FP) PO SCH (21:43)
[2023-06-29] MEDS: ATORVASTATIN CA 80 MG TABLET (FP) PO SCH (21:43)
[2023-06-29] MEDS: MELATONIN 5 MG TABLETS PO SCH (21:43)
[2023-06-30] MEDS: PRENATAL VITAMINS W/ FOLIC ACID TABLET (FP) PO SCH (10:10)
[2023-06-30] MEDS: ASPIRIN 81 MG CHEWABLE TABLETS PO SCH (10:10)
[2023-06-30] MEDS: VERAPAMIL HCL 120 MG E.R. TABLET PO SCH (10:10)
[2023-06-30] MEDS: ATORVASTATIN CA 80 MG TABLET (FP) PO SCH (21:30)
[2023-06-30] MEDS: MELATONIN 5 MG TABLETS PO SCH (21:31)
[2023-06-30] MEDS: MIRTAZAPINE 15 MG TABLET (FP) PO SCH (21:31)
[2023-06-30] MEDS: THIAMINE HCL 100 MG TABLET (FP) PO SCH (21:31)
[2023-06-30] MEDS: HALOPERIDOL 5 MG TABLET PO SCH (21:31)
[2023-07-01] MEDS: PRENATAL VITAMINS W/ FOLIC ACID TABLET (FP) PO SCH (09:29)
[2023-07-01] MEDS: ASPIRIN 81 MG CHEWABLE TABLETS PO SCH (09:30)
[2023-07-01] MEDS: VERAPAMIL HCL 120 MG E.R. TABLET PO SCH (09:30)
[2023-07-01] MEDS ORDERED: ATORVASTATIN CA 40 MG TABLET (FP) ONE (18:31)
[2023-07-01] MEDS: ATORVASTATIN CA 80 MG TABLET (FP) PO SCH (21:08)
[2023-07-01] MEDS: THIAMINE HCL 100 MG TABLET (FP) PO SCH (21:08)
[2023-07-01] MEDS: MIRTAZAPINE 15 MG TABLET (FP) PO SCH (21:08)
[2023-07-01] MEDS: HALOPERIDOL 5 MG TABLET PO SCH (21:08)
[2023-07-01] MEDS: MELATONIN 5 MG TABLETS PO SCH (21:08)
[2023-07-02] MEDS: PRENATAL VITAMINS W/ FOLIC ACID TABLET (FP) PO SCH (09:44)
[2023-07-02] MEDS: VERAPAMIL HCL 120 MG E.R. TABLET PO SCH (09:44)
[2023-07-02] MEDS: ASPIRIN 81 MG CHEWABLE TABLETS PO SCH (09:44)
[2023-07-02] MEDS ORDERED: ATORVASTATIN CA 40 MG TABLET (FP) ONE (18:31)
[2023-07-02] MEDS: ATORVASTATIN CA 80 MG TABLET (FP) PO SCH (21:03)
[2023-07-02] MEDS: MIRTAZAPINE 15 MG TABLET (FP) PO SCH (21:03)
[2023-07-02] MEDS: THIAMINE HCL 100 MG TABLET (FP) PO SCH (21:03)
[2023-07-02] MEDS: HALOPERIDOL 5 MG TABLET PO SCH (21:03)
[2023-07-02] MEDS: MELATONIN 5 MG TABLETS PO SCH (21:03)
[2023-07-03] MEDS: VERAPAMIL HCL 120 MG E.R. TABLET PO SCH (09:24)
[2023-07-03] MEDS: ASPIRIN 81 MG CHEWABLE TABLETS PO SCH (09:24)
[2023-07-03] MEDS: PRENATAL VITAMINS W/ FOLIC ACID TABLET (FP) PO SCH (09:24)
[2023-07-03] MEDS: ATORVASTATIN CA 80 MG TABLET (FP) PO SCH (21:15)
[2023-07-03] MEDS: MIRTAZAPINE 15 MG TABLET (FP) PO SCH (21:15)
[2023-07-03] MEDS: HALOPERIDOL 5 MG TABLET PO SCH (21:15)
[2023-07-03] MEDS: THIAMINE HCL 100 MG TABLET (FP) PO SCH (21:16)
[2023-07-03] MEDS: MELATONIN 5 MG TABLETS PO SCH (21:16)
[2023-07-04 07:01] VITALS: TEMP 97.5
[2023-07-04] MEDS: ASPIRIN 81 MG CHEWABLE TABLETS PO SCH (09:12)
[2023-07-04] MEDS: PRENATAL VITAMINS W/ FOLIC ACID TABLET (FP) PO SCH (09:12)
[2023-07-04] MEDS: VERAPAMIL HCL 120 MG E.R. TABLET PO SCH (09:12)
[2023-07-04 09:46] VITALS: BP 114/59; PULSE 69; RESP 18
== END 2023-07-04 10:48 | disposition home or self-care (01) | DRG 895 ==
LOC: YASAS 14:10 → Y3W 14:12
PROVIDERS: ADMIT Allergy & Immunology; ATTEND Psychiatry & Neurology Pain Medicine
PROC: HZ42ZZZ Group Counseling for Substance Abuse Treatment, Cognitive-Behavioral (ICD-10-PCS; principal; 2023-06-20)
DX: F10.20 Alcohol dependence, uncomplicated (principal); F14.20 Cocaine dependence, uncomplicated; F25.1 Schizoaffective disorder, depressive type; F41.9 Anxiety disorder, unspecified; F32.A Depression, unspecified; E78.5 Hyperlipidemia, unspecified; I25.10 Atherosclerotic heart disease of native coronary artery without angina pectoris; I10 Essential (primary) hypertension; E11.9 Type 2 diabetes mellitus without complications; Z87.891 Personal history of nicotine dependence; Z86.11 Personal history of tuberculosis
CPT/HCPCS: 36415; 86803; 87635

== ENCOUNTER 2023-07-14 17:21 | Inpatient (IN) | payer OTHER ==
[2023-07-14 17:51] VITALS: BMI 25.2
[2023-07-14] MEDS ORDERED: DICYCLOMINE HCL 10 MG CAPSULE PO PRN (18:55)
[2023-07-14] MEDS ORDERED: BENZONATATE 200 MG CAPSULE PO PRN (18:55)
[2023-07-14] MEDS ORDERED: guaiFENesin 600 MG TABLET.ER (FP) PO PRN (18:55)
[2023-07-14] MEDS ORDERED: POLYETHYLENE GLYCOL (HEALTHYLAX) 3350 17 GM PACKET PO PRN (18:55)
[2023-07-14] MEDS ORDERED: METHOCARBAMOL 500 MG TABLET PO PRN (18:55)
[2023-07-14] MEDS ORDERED: BISMUTH SUBSALICYLATE 524 MG/30 ML PO PRN (18:55)
[2023-07-14] MEDS ORDERED: NALOXONE HCL (KLOXXADO) 8 MG SPRAY NS PRN (18:55)
[2023-07-14] MEDS ORDERED: IBUPROFEN 600 MG TABLET (FP) PO PRN (18:55)
[2023-07-14] MEDS ORDERED: BENZOCAINE/MENTHOL (CHLORASEPTIC ) LOZENGE MM PRN (18:55)
[2023-07-14] MEDS ORDERED: diazePAM 5 MG TABLET PO PRN (18:55)
[2023-07-14] MEDS ORDERED: IBUPROFEN 400 MG TABLET (FP) PO PRN (18:55)
[2023-07-14] MEDS ORDERED: LOPERAMIDE HCL 2 MG CAPSULE PO PRN (18:55)
[2023-07-14] MEDS ORDERED: MAGNESIUM HYDROX 2400MG/30ML ORAL SUSPENSION 30 ML CUP PO PRN (18:55)
[2023-07-14] MEDS ORDERED: hydrOXYzine PAMOATE 25 MG CAPSULE (FP) PO PRN (18:55)
[2023-07-14] MEDS ORDERED: ONDANSETRON *ODT* 4 MG TABLET SL PRN (18:55)
[2023-07-14] MEDS ORDERED: ACETAMINOPHEN 325 MG TABLET (FP) PO PRN (18:55)
[2023-07-14] MEDS ORDERED: NALOXONE HCL 0.4 MG/ML VIAL IM PRN (18:55)
[2023-07-14] MEDS ORDERED: MAG HYDROX/AL HYDROX/SIMETH 30 ML UNIT-DOSE CUP PO PRN (18:55)
[2023-07-14] MEDS: MELATONIN 5 MG TABLETS PO SCH (22:36)
[2023-07-14] MEDS: THIAMINE HCL 100 MG TABLET (FP) PO SCH (22:36)
[2023-07-14] MEDS: diazePAM 5 MG TABLET PO SCH (22:38)
[2023-07-15] MEDS: diazePAM 5 MG TABLET PO SCH (05:27)
[2023-07-15] MEDS ORDERED: chlordiazePOXIDE HCL 25 MG CAPSULE PO PRN (09:35)
[2023-07-15] MEDS: chlordiazePOXIDE HCL 25 MG CAPSULE PO SCH ×3 (10:19→22:25)
[2023-07-15] MEDS: VERAPAMIL HCL 120 MG E.R. TABLET PO SCH (10:19)
[2023-07-15] MEDS: PRENATAL VITAMINS W/ FOLIC ACID TABLET (FP) PO SCH (10:19)
[2023-07-15] MEDS: ASPIRIN 81 MG CHEWABLE TABLETS PO SCH (10:22)
[2023-07-15 10:28] LABS: POTASSIUM 4.4 mmol/L (3.5-5.1)
[2023-07-15 10:30] LABS: HEMOGLOBIN 12.9 GM/dL (11.7-16.9); MCH 31.1 pg (25.7-33.7); MCHC 33.8 g/dl (32.0-35.9); MEAN CELL VOLUME 91.8 fl (80-96); MEAN PLT VOLUME 7.1 fl (7.5-11.1); PLATELET COUNT 330 10^3/uL (134-434); RBC 4.15 M/mm3 (4.00-5.60); RDW 13.9 % (11.9-15.9); WHITE BLOOD COUNT 6.1 K/mm3 (4.0-10.0)
[2023-07-15 10:31] LABS: CALCIUM 8.9 mg/dL (8.5-10.1)
[2023-07-15 10:32] LABS: ALBUMIN 3.2 g/dl (3.4-5.0); BLOOD UREA NITROGEN 15.3 mg/dL (7-18)
[2023-07-15 10:37] LABS: TOT PROT 7.2 g/dl (6.4-8.2)
[2023-07-15 10:45] LABS: BILIRUBIN,TOTAL 0.3 mg/dL (0.2-1)
[2023-07-15] MEDS: ATORVASTATIN CA 80 MG TABLET (FP) PO SCH (22:25)
[2023-07-15] MEDS: THIAMINE HCL 100 MG TABLET (FP) PO SCH (22:25)
[2023-07-15] MEDS: HALOPERIDOL 5 MG TABLET PO SCH (22:25)
[2023-07-15] MEDS: MIRTAZAPINE 15 MG TABLET (FP) PO SCH (22:25)
[2023-07-15] MEDS: MELATONIN 5 MG TABLETS PO SCH (22:25)
[2023-07-16] MEDS ORDERED: chlordiazePOXIDE HCL 25 MG CAPSULE PO ONE (05:00)
[2023-07-16] MEDS ORDERED: diazePAM 5 MG TABLET PO SCH (06:00)
[2023-07-16] MEDS: ASPIRIN 81 MG CHEWABLE TABLETS PO SCH (10:18)
[2023-07-16] MEDS: PRENATAL VITAMINS W/ FOLIC ACID TABLET (FP) PO SCH (10:18)
[2023-07-16] MEDS: VERAPAMIL HCL 120 MG E.R. TABLET PO SCH (10:20)
[2023-07-16] MEDS: chlordiazePOXIDE HCL 25 MG CAPSULE PO SCH ×4 (11:40→22:10)
[2023-07-16] MEDS ORDERED: VERAPAMIL HCL 120 MG E.R. TABLET PO SCH (15:13)
[2023-07-16] MEDS: ATORVASTATIN CA 80 MG TABLET (FP) PO SCH (22:10)
[2023-07-16] MEDS: MELATONIN 5 MG TABLETS PO SCH (22:11)
[2023-07-16] MEDS: THIAMINE HCL 100 MG TABLET (FP) PO SCH (22:11)
[2023-07-16] MEDS: MIRTAZAPINE 15 MG TABLET (FP) PO SCH (22:11)
[2023-07-16] MEDS: HALOPERIDOL 5 MG TABLET PO SCH (22:11)
[2023-07-17] MEDS: chlordiazePOXIDE HCL 25 MG CAPSULE PO SCH ×4 (05:20→22:14)
[2023-07-17] MEDS ORDERED: diazePAM 5 MG TABLET PO SCH (06:00)
[2023-07-17] MEDS: ASPIRIN 81 MG CHEWABLE TABLETS PO SCH (10:19)
[2023-07-17] MEDS: PRENATAL VITAMINS W/ FOLIC ACID TABLET (FP) PO SCH (10:19)
[2023-07-17] MEDS: VERAPAMIL HCL 120 MG E.R. TABLET PO SCH (10:19)
[2023-07-17] MEDS: MIRTAZAPINE 15 MG TABLET (FP) PO SCH (22:14)
[2023-07-17] MEDS: ATORVASTATIN CA 80 MG TABLET (FP) PO SCH (22:14)
[2023-07-17] MEDS: THIAMINE HCL 100 MG TABLET (FP) PO SCH (22:14)
[2023-07-17] MEDS: MELATONIN 5 MG TABLETS PO SCH (22:14)
[2023-07-17] MEDS: HALOPERIDOL 5 MG TABLET PO SCH (22:14)
[2023-07-18] MEDS ORDERED: chlordiazePOXIDE HCL 10 MG CAPSULE PO PRN
[2023-07-18] MEDS: chlordiazePOXIDE HCL 10 MG CAPSULE PO SCH ×4 (05:44→22:41)
[2023-07-18] MEDS ORDERED: diazePAM 5 MG TABLET PO ONE (06:00)
[2023-07-18] MEDS: PRENATAL VITAMINS W/ FOLIC ACID TABLET (FP) PO SCH (10:16)
[2023-07-18] MEDS: ASPIRIN 81 MG CHEWABLE TABLETS PO SCH (10:16)
[2023-07-18] MEDS: VERAPAMIL HCL 120 MG E.R. TABLET PO SCH (10:17)
[2023-07-18] MEDS: HALOPERIDOL 5 MG TABLET PO SCH (22:41)
[2023-07-18] MEDS: MIRTAZAPINE 15 MG TABLET (FP) PO SCH (22:41)
[2023-07-18] MEDS: THIAMINE HCL 100 MG TABLET (FP) PO SCH (22:41)
[2023-07-18] MEDS: ATORVASTATIN CA 80 MG TABLET (FP) PO SCH (22:41)
[2023-07-18] MEDS: MELATONIN 5 MG TABLETS PO SCH (22:42)
[2023-07-19] MEDS ORDERED: chlordiazePOXIDE HCL 10 MG CAPSULE PO SCH (05:00)
[2023-07-19] MEDS: ASPIRIN 81 MG CHEWABLE TABLETS PO SCH (10:19)
[2023-07-19] MEDS: VERAPAMIL HCL 120 MG E.R. TABLET PO SCH (10:19)
[2023-07-19] MEDS: PRENATAL VITAMINS W/ FOLIC ACID TABLET (FP) PO SCH (10:19)
[2023-07-19 13:41] VITALS: BP 112/76; PULSE 78; RESP 16; TEMP 97.6
[2023-07-20] MEDS ORDERED: chlordiazePOXIDE HCL 10 MG CAPSULE PO ONE (05:00)
== END 2023-07-19 03:44 | disposition other institution (70) | DRG 897 ==
LOC: YASAS 17:21 → Y3N 19:04
PROVIDERS: ADMIT Allergy & Immunology; ATTEND Surgery
PROC: HZ2ZZZZ Detoxification Services for Substance Abuse Treatment (ICD-10-PCS; principal; 2023-07-14)
DX: F10.230 Alcohol dependence with withdrawal, uncomplicated (principal); F14.20 Cocaine dependence, uncomplicated; F19.282 Other psychoactive substance dependence with psychoactive substance-induced sleep disorder; F19.280 Other psychoactive substance dependence with psychoactive substance-induced anxiety disorder; F19.24 Other psychoactive substance dependence with psychoactive substance-induced mood disorder; F25.1 Schizoaffective disorder, depressive type; I25.10 Atherosclerotic heart disease of native coronary artery without angina pectoris; I10 Essential (primary) hypertension; E78.5 Hyperlipidemia, unspecified; E11.9 Type 2 diabetes mellitus without complications; Z87.891 Personal history of nicotine dependence; Z86.11 Personal history of tuberculosis
CPT/HCPCS: 36415; 80053; 83036; 85027; 86780; 87635